=== PATIENT | male | born 1950 | race Caucasian/White ===

== ENCOUNTER 2020-05-25 09:50 | Inpatient (IN) | payer MEDICARE ==
[2020-05-25] MEDS ORDERED: Fentanyl 100 MCG/2 ML VIAL ONE ×2 (10:30→12:34)
[2020-05-25 10:58] LABS: ALT (SGPT) 161 U/L (8-55); AST (SGOT) 161 U/L (5-34); Albumin 3.6 g/dL (3.4-4.8); Alkaline Phosphatase 89 U/L (40-110); Anion Gap 18 mmol/L (10-20); BUN (Urea Nitrogen) 24 mg/dL (8.4-25.7); Bilirubin, Total 0.3 mg/dL (0.2-1.2); CK (CPK) 354 U/L (30-200); Calc. Creatinine Clearance 0 mL/min (70-130); Calcium 8.9 mg/dL (7.8-10.44); Carbon Dioxide 24 mmol/L (23-31); Chloride 99 mmol/L (98-107); Globulin 2.8 g/dL (2.4-3.5); Glucose 155 mg/dL (80-115); Potassium 3.5 mmol/L (3.5-5.1); Protein, Total 6.4 g/dL (5.8-8.1); Sodium 137 mmol/L (136-145)
[2020-05-25 10:59] LABS: Hemoglobin 9.4 g/dL (14.0-18.0); Mean Corpuscular HGB CONC 31.5 g/dL (32.0-36.0); Mean Corpuscular Hemoglobin 23.2 pg (27.0-31.0); Mean Corpuscular Volume 73.8 fL (78.0-98.0); Mean Platelet Volume 9.3 fL (7.4-10.4); Platelet Count 215 thou/uL (130-400); RBC Distribution Width 17.8 % (11.5-14.5); Red Blood Cell (RBC) Count 4.06 mill/uL (4.70-6.10); White Blood Cell (WBC) Count 10.7 thou/uL (4.8-10.8)
[2020-05-25 11:00] LABS: #Eosinphils 0.1 thou/uL (0.0-0.7); #Lymphocytes 1.1 thou/uL (1.20-3.40); #Monocytes 0.6 thou/uL (0.11-0.59); #Neutrophils 8.8 thou/uL (1.40-6.50); %Basophils 0.3 % (0.0-1.0); %Eosinophils 1.2 % (0.0-10.0); %Lymphocytes 10.5 % (21.0-51.0); %Monocytes 5.8 % (0.0-10.0); %Neutrophils 82.1 % (42.0-75.0)
[2020-05-25 11:19] LABS: Hypochromia SLIGHT = 6-15 cells (100X) (0-5/hpf); MDiff Complete? YES; Microcytosis SLIGHT = 6-15 cells (100X) (0-5/hpf); Platelet Morphology Comment Appears Adequate; Polychromasia SLIGHT = 2-3 cells (100X) (0-2/hpf)
[2020-05-25] MEDS ORDERED: Morphine 4 MG/ML VIAL ONE (13:52)
[2020-05-25] MEDS ORDERED: Aspirin Chewable 81 MG TAB ONE (14:00)
[2020-05-25] MEDS ORDERED: Insulin Regular 300 UNITS/3 ML VIAL SC PRN (14:42)
[2020-05-25] MEDS ORDERED: Morphine 2 MG/ML VIAL SLOW IVP PRN (14:42)
[2020-05-25] MEDS ORDERED: Ondansetron ODT 4 MG TAB PO PRN (14:42)
[2020-05-25] MEDS ORDERED: hydrALAZINE 20 MG/ML VIAL SLOW IVP PRN ×2 (14:42→22:05)
[2020-05-25] MEDS ORDERED: Dextrose 5% in Water 1,000 ML IV PRN (14:42)
[2020-05-25] MEDS ORDERED: Dextrose 50% Abboject 50 ML SYRINGE SLOW IVP PRN (14:42)
[2020-05-25] MEDS ORDERED: traMADol HCl 50 MG TAB PO PRN (14:49)
[2020-05-25 15:21] LABS: Magnesium 1.7 mg/dL (1.6-2.6); Phosphorus 4.2 mg/dL (2.3-4.7)
[2020-05-25] MEDS ORDERED: Acetaminophen 325 MG TAB PO PRN (17:32)
[2020-05-25 17:44] LABS: Glucose 136 mg/dL (80-115)
[2020-05-25] MEDS ORDERED: Gabapentin 300 MG CAP PO SCH (17:45)
[2020-05-25 17:55] LABS: Troponin I 0.107 ng/mL (< 0.028)
[2020-05-25] MEDS ORDERED: traMADol HCl 50 MG TAB PO SCH (18:00)
[2020-05-25 18:46] VITALS: BMI 31.6
[2020-05-25] MEDS ORDERED: Potassium Phosphate 30 MMOL in Sodium Chloride 0.9% 500 ML IVPB SCH (19:00)
[2020-05-25] MEDS: Gabapentin 300 MG CAP PO SCH (20:38)
[2020-05-25] MEDS: Rosuvastatin 10 MG TAB PO SCH (20:38)
[2020-05-25] MEDS: Cyclobenzaprine 10 MG TAB PO SCH (20:40)
[2020-05-25] MEDS: Famotidine 20 MG TAB PO SCH (20:41)
[2020-05-25] MEDS ORDERED: Lisinopril 20 MG TAB PO SCH ×2 (21:00)
[2020-05-25 21:07] LABS: Glucose 158 mg/dL (80-115)
[2020-05-25] MEDS: Ibuprofen 200 MG TAB PO SCH (21:50)
[2020-05-25] MEDS: Senokot S 8.6-50 MG TAB PO SCH (21:52)
[2020-05-26 01:27] LABS: Glucose 160 mg/dL (80-115)
[2020-05-26] MEDS: traMADol HCl 50 MG TAB PO SCH ×4 (01:50→17:21)
[2020-05-26] MEDS: Ibuprofen 200 MG TAB PO SCH ×2 (03:59→09:49)
[2020-05-26] MEDS: Docusate 100 MG CAP PO SCH ×3 (03:59→20:47)
[2020-05-26 05:11] LABS: #Eosinphils 0.2 thou/uL (0.0-0.7); #Lymphocytes 1.8 thou/uL (1.20-3.40); #Monocytes 1.2 thou/uL (0.11-0.59); #Neutrophils 7.8 thou/uL (1.40-6.50); %Basophils 0.4 % (0.0-1.0); %Eosinophils 1.8 % (0.0-10.0); %Monocytes 10.7 % (0.0-10.0); %Neutrophils 71.1 % (42.0-75.0); Hemoglobin 9.1 g/dL (14.0-18.0); Mean Corpuscular HGB CONC 31.8 g/dL (32.0-36.0); Mean Corpuscular Hemoglobin 23.2 pg (27.0-31.0); Mean Corpuscular Volume 73.1 fL (78.0-98.0); Mean Platelet Volume 9.5 fL (7.4-10.4); Platelet Count 203 thou/uL (130-400); RBC Distribution Width 17.9 % (11.5-14.5); White Blood Cell (WBC) Count 10.9 thou/uL (4.8-10.8)
[2020-05-26 05:14] LABS: Prothrombin Time 13.4 sec (12.0-14.7)
[2020-05-26 05:16] LABS: Hemoglobin A1c 6.1 % (4.0-6.0)
[2020-05-26 05:24] LABS: Glucose 165 mg/dL (80-115)
[2020-05-26 05:31] LABS: ALT (SGPT) 146 U/L (8-55); AST (SGOT) 139 U/L (5-34); Albumin 3.4 g/dL (3.4-4.8); Alkaline Phosphatase 84 U/L (40-110); Bilirubin, Direct 0.2 mg/dL (0.1-0.3); Bilirubin, Total 0.4 mg/dL (0.2-1.2); Protein, Total 6.1 g/dL (5.8-8.1)
[2020-05-26 05:33] LABS: Acetaminophen Less than 6.0 mcg/mL (10.0-30.0); Alcohol Less than 10 mg/dL (Less than 10); Salicylate Less than 8.0 mg/dL (15.0-30.0)
[2020-05-26 05:34] LABS: Anion Gap 15 mmol/L (10-20); BUN (Urea Nitrogen) 26 mg/dL (8.4-25.7); Calc. Creatinine Clearance 53 mL/min (70-130); Calcium 8.4 mg/dL (7.8-10.44); Carbon Dioxide 27 mmol/L (23-31); Cardiac Risk 3.9 (Less than 4.5); Chloride 97 mmol/L (98-107); Cholesterol 129 mg/dl (< 200 Desired); Glucose 164 mg/dL (80-115); HDL Cholesterol 33 mg/dL (>60 Neg Risk); LDL Cholesterol, Calculated 68 mg/dL; Potassium 3.1 mmol/L (3.5-5.1); Sodium 136 mmol/L (136-145); Triglycerides 140 mg/dL (Less than 150)
[2020-05-26] MEDS ORDERED: Potassium Phosphate 30 MMOL in Sodium Chloride 0.9% 250 ML 250 ML IVPB SCH (07:15)
[2020-05-26] MEDS ORDERED: Potassium Chloride 20 MEQ TAB PO SCH ×2 (07:15→14:30)
[2020-05-26] MEDS ORDERED: Potassium Phosphate 30 MMOL, Magnesium Sulfate 2 GM in Sodium Chloride 0.9% 250 ML 250 ML IVPB SCH (07:15)
[2020-05-26] MEDS ORDERED: Magnesium Sulfate 2 GM in Sodium Chloride 0.9% 100 ML IV SCH (07:15)
[2020-05-26] MEDS ORDERED: Bumetanide 1 MG TAB PO SCH (07:30)
[2020-05-26 07:51] LABS: Phosphorus 5.1 mg/dL (2.3-4.7)
[2020-05-26] MEDS ORDERED: Tamsulosin HCl 0.4 MG CAP PO SCH (09:00)
[2020-05-26 09:28] LABS: SARS-CoV-2 PCR by NAA Not Detected (NotDetected)
[2020-05-26 09:47] LABS: Glucose 113 mg/dL (80-115)
[2020-05-26] MEDS: Gabapentin 300 MG CAP PO SCH ×2 (09:48→14:33)
[2020-05-26] MEDS: Famotidine 20 MG TAB PO SCH (09:49)
[2020-05-26] MEDS: Tamsulosin HCl 0.4 MG CAP PO SCH (09:49)
[2020-05-26] MEDS: Aspirin 81 mg Enteric Coated Tablet PO SCH (09:50)
[2020-05-26] MEDS: Dutasteride 0.5 MG CAP PO SCH (09:50)
[2020-05-26] MEDS: Senokot S 8.6-50 MG TAB PO SCH ×2 (09:50→20:45)
[2020-05-26] MEDS: Cyclobenzaprine 10 MG TAB PO SCH ×2 (09:50→14:34)
[2020-05-26] MEDS: traMADol HCl 50 MG TAB PO PRN (11:48)
[2020-05-26] MEDS ORDERED: Acetaminophen 325 MG TAB PO SCH ×2 (12:00→14:00)
[2020-05-26] MEDS: HYDROcodone/Acetaminophen 10/325 mg Tablet PO PRN (12:53)
[2020-05-26] MEDS: GUAIFENESIN SF SOLN 200 MG/10 ML UDCUP PO PRN (17:20)
[2020-05-26] MEDS: Carvedilol 3.125 MG TAB PO SCH (17:21)
[2020-05-26] MEDS: Nicotine 14 MG PATCH TD SCH (17:21)
[2020-05-26] MEDS: Gabapentin 400 MG CAP PO SCH (20:42)
[2020-05-26] MEDS: Acetaminophen 325 MG TAB PO SCH (20:45)
[2020-05-27] MEDS ORDERED: Furosemide 100 MG/10 ML VIAL SLOW IVP SCH
[2020-05-27] MEDS ORDERED: Furosemide 100 MG/10 ML VIAL ONE (00:02)
[2020-05-27 00:10] LABS: #Basophils 0.1 thou/uL (0.0-0.2); #Eosinphils 0.2 thou/uL (0.0-0.7); #Lymphocytes 1.7 thou/uL (1.20-3.40); #Monocytes 1.5 thou/uL (0.11-0.59); #Neutrophils 13.9 thou/uL (1.40-6.50); %Basophils 0.3 % (0.0-1.0); %Eosinophils 1.1 % (0.0-10.0); %Monocytes 8.4 % (0.0-10.0); %Neutrophils 80.2 % (42.0-75.0); Hemoglobin 9.6 g/dL (14.0-18.0); Mean Corpuscular HGB CONC 31.1 g/dL (32.0-36.0); Mean Corpuscular Volume 73.9 fL (78.0-98.0); Mean Platelet Volume 9.6 fL (7.4-10.4); Platelet Count 197 thou/uL (130-400); Red Blood Cell (RBC) Count 4.18 mill/uL (4.70-6.10); White Blood Cell (WBC) Count 17.4 thou/uL (4.8-10.8)
[2020-05-27 00:17] LABS: Actual Bicarbonate (HCO3a) 26.3 mEq/L (22-28); Base Excess (BEa) -1.6 mEq/L (-2.0 to +3.0); Calcium, Ionized (arterial) 1.17 mmol/L (1.12-1.30); Carboxyhemoglobin (COHb) 1.4 gm% (0.0-3.0); Hemoglobin (Hb) 9.9 g/dL (14.0-18.0); O2 Tension (PaO2), arterial 86.3 mmHg (> 70.0); Potassium - ABG Lab 3.97 mmol/L (3.70-5.30)
[2020-05-27 00:19] LABS: INR-International Normal Ratio 0.9; Prothrombin Time 12.7 sec (12.0-14.7)
[2020-05-27 00:31] LABS: Anion Gap 18 mmol/L (10-20); BUN (Urea Nitrogen) 28 mg/dL (8.4-25.7); Calc. Creatinine Clearance 50 mL/min (70-130); Carbon Dioxide 22 mmol/L (23-31); Chloride 98 mmol/L (98-107); Glucose 169 mg/dL (80-115); Magnesium 2.6 mg/dL (1.6-2.6); Potassium 4.5 mmol/L (3.5-5.1); Sodium 133 mmol/L (136-145)
[2020-05-27 00:35] LABS: Troponin I 0.073 ng/mL (< 0.028)
[2020-05-27 02:36] LABS: #Eosinphils 0.1 thou/uL (0.0-0.7); #Lymphocytes 0.9 thou/uL (1.20-3.40); #Neutrophils 12.5 thou/uL (1.40-6.50); %Basophils 0.1 % (0.0-1.0); %Eosinophils 0.6 % (0.0-10.0); %Lymphocytes 6.4 % (21.0-51.0); %Monocytes 6.9 % (0.0-10.0); Hemoglobin 8.7 g/dL (14.0-18.0); Mean Corpuscular HGB CONC 31.1 g/dL (32.0-36.0); Mean Corpuscular Hemoglobin 23.1 pg (27.0-31.0); Mean Corpuscular Volume 74.1 fL (78.0-98.0); Mean Platelet Volume 9.5 fL (7.4-10.4); Platelet Count 182 thou/uL (130-400); RBC Distribution Width 17.6 % (11.5-14.5); Red Blood Cell (RBC) Count 3.78 mill/uL (4.70-6.10); White Blood Cell (WBC) Count 14.6 thou/uL (4.8-10.8)
[2020-05-27 02:54] LABS: Anion Gap 17 mmol/L (10-20); BUN (Urea Nitrogen) 26 mg/dL (8.4-25.7); Calc. Creatinine Clearance 49 mL/min (70-130); Calcium 8.4 mg/dL (7.8-10.44); Carbon Dioxide 24 mmol/L (23-31); Chloride 96 mmol/L (98-107); Glucose 210 mg/dL (80-115); Phosphorus 5.3 mg/dL (2.3-4.7); Potassium 3.8 mmol/L (3.5-5.1); Sodium 133 mmol/L (136-145)
[2020-05-27 04:04] LABS: Actual Bicarbonate (HCO3a) 26.3 mEq/L (22-28); Base Excess (BEa) 1.1 mEq/L (-2.0 to +3.0); CO2 Tension 44.8 mmHg (35.0-45.0); Calcium, Ionized (arterial) 1.15 mmol/L (1.12-1.30); Hemoglobin (Hb) 9.5 g/dL (14.0-18.0); Potassium - ABG Lab 3.48 mmol/L (3.70-5.30); pH, Arterial 7.39 (7.35-7.45)
[2020-05-27 04:07] LABS: CO2 Tension 61.9 mmHg (35.0-45.0); Puncture Site LRA; pH, Arterial 7.25 (7.35-7.45)
[2020-05-27 04:08] LABS: ALV-art Gradient 478.025 mmHg (0-20)
[2020-05-27 04:09] LABS: O2 Tension (PaO2), arterial 56.1 mmHg (> 70.0)
[2020-05-27 04:10] LABS: Puncture Site RRA
[2020-05-27] MEDS: Rosuvastatin 10 MG TAB PO SCH ×2 (05:48→20:32)
[2020-05-27] MEDS: traMADol HCl 50 MG TAB PO SCH ×5 (05:50→23:49)
[2020-05-27] MEDS: Tamsulosin HCl 0.4 MG CAP PO SCH (08:24)
[2020-05-27] MEDS: Gabapentin 400 MG CAP PO SCH (08:24)
[2020-05-27] MEDS: Dutasteride 0.5 MG CAP PO SCH (08:24)
[2020-05-27] MEDS: Acetaminophen 325 MG TAB PO SCH ×2 (08:24→20:31)
[2020-05-27] MEDS: Senokot S 8.6-50 MG TAB PO SCH ×2 (08:24→20:32)
[2020-05-27] MEDS: Aspirin 81 mg Enteric Coated Tablet PO SCH (08:25)
[2020-05-27] MEDS: Carvedilol 3.125 MG TAB PO SCH ×2 (08:25→18:08)
[2020-05-27] MEDS: Bumetanide 1 MG TAB PO SCH (08:25)
[2020-05-27] MEDS: Docusate 100 MG CAP PO SCH ×2 (10:20→20:32)
[2020-05-27] MEDS ORDERED: Non-Formulary Item 1 EACH (Albuterol Sulfate [Proventil Hfa] 200 PUFF Inh) INH PRN (10:31)
[2020-05-27] MEDS ORDERED: Albuterol Sulfate 2.5 mg/3 ml Neb NEB PRN (10:31)
[2020-05-27] MEDS: HumaLOG 300 UNITS/3 ML VIAL SC PRN ×2 (11:37→20:33)
[2020-05-27] MEDS ORDERED: methylPREDNISolone Sod Succ/PF 125 MG/2 ML VIAL IVP SCH (11:52)
[2020-05-27 17:04] LABS: Bilirubin Negative (Negative); Blood, Urine 1+ (Negative); Clarity Clear (Clear); Glucose, Urine (Dipstick) Normal (Negative); Ketone, Urine Negative (Negative); Leukocyte 250 Leu/uL (Negative); Nitrite Negative (Negative); Protein, Urine (Dipstick) 10 mg/dL (Neg-Trace); Specific Gravity, Urine 1.015 (1.002-1.036); Squamous Epithelial None Seen HPF (0-3); Urobilinogen Normal mg/dL (Less than 2); WBC/HPF 21-50 HPF (0-3); pH, Urine 5.5 (5.0-9.0)
[2020-05-27 17:05] LABS: Bacteria/HPF 3+ HPF (None Seen)
[2020-05-27] MEDS: methylPREDNISolone Sod Succ 40 MG VIAL IVP SCH ×2 (18:07→23:49)
[2020-05-27] MEDS: hydrALAZINE 25 MG TAB PO SCH ×2 (18:08→20:32)
[2020-05-27] MEDS: Nicotine 14 MG PATCH TD SCH (18:08)
[2020-05-27] MEDS: Mometasone 100 MCG/Formoterol 5 MCG 120 PUFF INHALER INH SCH (19:16)
[2020-05-27] MEDS: Gabapentin 100 MG CAP PO SCH (20:32)
[2020-05-27] MEDS ORDERED: Heparin 5,000 UNITS/ML VIAL SC SCH (21:00)
[2020-05-27 22:48] LABS: Bacteria/HPF 2+ HPF (None Seen); Bilirubin Negative (Negative); Blood, Urine Trace (Negative); Clarity Clear (Clear); Glucose, Urine (Dipstick) 300 mg/dL (Negative); Ketone, Urine Negative (Negative); Leukocyte 75 Leu/uL (Negative); Nitrite Negative (Negative); Protein, Urine (Dipstick) 10 mg/dL (Neg-Trace); RBC/HPF 0-3 HPF (0-3); Specific Gravity, Urine 1.012 (1.002-1.036); Squamous Epithelial None Seen HPF (0-3); Urobilinogen Normal mg/dL (Less than 2); pH, Urine 5.5 (5.0-9.0)
[2020-05-27 22:49] LABS: Urine Culture Reflex Yes Yes
[2020-05-28] MEDS: HYDROcodone/Acetaminophen 10/325 mg Tablet PO PRN (01:53)
[2020-05-28 04:08] LABS: ALT (SGPT) 340 U/L (8-55); AST (SGOT) 403 U/L (5-34); Albumin 3.3 g/dL (3.4-4.8); Alkaline Phosphatase 91 U/L (40-110); Bilirubin, Direct 0.2 mg/dL (0.1-0.3); Bilirubin, Total 0.4 mg/dL (0.2-1.2); Protein, Total 6.3 g/dL (5.8-8.1)
[2020-05-28] MEDS: methylPREDNISolone Sod Succ 40 MG VIAL IVP SCH ×4 (05:37→23:24)
[2020-05-28] MEDS: traMADol HCl 50 MG TAB PO PRN (05:38)
[2020-05-28] MEDS: traMADol HCl 50 MG TAB PO SCH ×4 (05:39→23:26)
[2020-05-28] MEDS: HumaLOG 300 UNITS/3 ML VIAL SC PRN ×2 (05:39→20:40)
[2020-05-28] MEDS ORDERED: Ipratropium Bromide 2.5 ml Neb NEB SCH (07:00)
[2020-05-28] MEDS: Morphine 2 MG/ML VIAL SLOW IVP PRN ×2 (07:17→19:51)
[2020-05-28 07:22] LABS: #Basophils 0.3 thou/uL (0.0-0.2); #Lymphocytes 0.6 thou/uL (1.20-3.40); #Monocytes 0.3 thou/uL (0.11-0.59); #Neutrophils 11.7 thou/uL (1.40-6.50); %Eosinophils 0.1 % (0.0-10.0); %Lymphocytes 4.4 % (21.0-51.0); %Monocytes 2.6 % (0.0-10.0); %Neutrophils 90.8 % (42.0-75.0); Hemoglobin 9.2 g/dL (14.0-18.0); Mean Corpuscular HGB CONC 31.4 g/dL (32.0-36.0); Mean Corpuscular Hemoglobin 23.2 pg (27.0-31.0); Mean Corpuscular Volume 73.8 fL (78.0-98.0); Mean Platelet Volume 10.5 fL (7.4-10.4); Platelet Count 180 thou/uL (130-400); RBC Distribution Width 17.8 % (11.5-14.5); Red Blood Cell (RBC) Count 3.95 mill/uL (4.70-6.10); White Blood Cell (WBC) Count 12.9 thou/uL (4.8-10.8)
[2020-05-28 07:31] LABS: Anion Gap 12 mmol/L (10-20); BUN (Urea Nitrogen) 17 mg/dL (8.4-25.7); Calc. Creatinine Clearance 56 mL/min (70-130); Calcium 9.1 mg/dL (7.8-10.44); Carbon Dioxide 30 mmol/L (23-31); Chloride 94 mmol/L (98-107); Glucose 195 mg/dL (80-115); Magnesium 1.9 mg/dL (1.6-2.6); Sodium 132 mmol/L (136-145)
[2020-05-28 07:36] LABS: Phosphorus 3.6 mg/dL (2.3-4.7)
[2020-05-28] MEDS: Mometasone 100 MCG/Formoterol 5 MCG 120 PUFF INHALER INH SCH ×2 (08:00→18:31)
[2020-05-28] MEDS: Carvedilol 3.125 MG TAB PO SCH (08:02)
[2020-05-28] MEDS: Acetaminophen 325 MG TAB PO SCH ×2 (08:02→20:41)
[2020-05-28] MEDS: Dutasteride 0.5 MG CAP PO SCH (08:02)
[2020-05-28] MEDS: Gabapentin 100 MG CAP PO SCH ×2 (08:03→20:40)
[2020-05-28] MEDS: Aspirin 81 mg Enteric Coated Tablet PO SCH (08:03)
[2020-05-28] MEDS: Docusate 100 MG CAP PO SCH ×2 (08:04→20:41)
[2020-05-28] MEDS: Bumetanide 1 MG TAB PO SCH (08:04)
[2020-05-28] MEDS: Senokot S 8.6-50 MG TAB PO SCH ×2 (08:04→20:40)
[2020-05-28] MEDS: hydrALAZINE 25 MG TAB PO SCH ×3 (08:04→20:41)
[2020-05-28] MEDS: Tamsulosin HCl 0.4 MG CAP PO SCH (08:04)
[2020-05-28] MEDS ORDERED: Carvedilol 3.125 MG TAB PO SCH (13:09)
[2020-05-28] MEDS ORDERED: Carvedilol 6.25 MG TAB PO SCH (13:15)
[2020-05-28] MEDS: Carvedilol 6.25 MG TAB PO SCH (17:45)
[2020-05-28] MEDS: Nicotine 14 MG PATCH TD SCH (17:48)
[2020-05-28] MEDS: Heparin 5,000 UNITS/ML VIAL SC SCH (20:40)
[2020-05-29] MEDS: Morphine 2 MG/ML VIAL SLOW IVP PRN (03:52)
[2020-05-29 04:25] LABS: Phosphorus 3.7 mg/dL (2.3-4.7)
[2020-05-29 04:26] LABS: ALT (SGPT) 407 U/L (8-55); AST (SGOT) 363 U/L (5-34); Albumin 3.5 g/dL (3.4-4.8); Alkaline Phosphatase 92 U/L (40-110); Anion Gap 15 mmol/L (10-20); BUN (Urea Nitrogen) 30 mg/dL (8.4-25.7); Bilirubin, Direct 0.2 mg/dL (0.1-0.3); Bilirubin, Total 0.4 mg/dL (0.2-1.2); Calc. Creatinine Clearance 65 mL/min (70-130); Calcium 9.2 mg/dL (7.8-10.44); Carbon Dioxide 29 mmol/L (23-31); Chloride 93 mmol/L (98-107); Glucose 168 mg/dL (80-115); Magnesium 1.8 mg/dL (1.6-2.6); Potassium 4.2 mmol/L (3.5-5.1); Protein, Total 6.8 g/dL (5.8-8.1); Sodium 133 mmol/L (136-145)
[2020-05-29] MEDS: HumaLOG 300 UNITS/3 ML VIAL SC PRN ×2 (05:41→12:34)
[2020-05-29] MEDS: methylPREDNISolone Sod Succ 40 MG VIAL IVP SCH ×4 (05:42→23:34)
[2020-05-29] MEDS: traMADol HCl 50 MG TAB PO SCH ×4 (05:42→23:34)
[2020-05-29] MEDS: Mometasone 100 MCG/Formoterol 5 MCG 120 PUFF INHALER INH SCH ×2 (08:03→18:34)
[2020-05-29] MEDS: Aspirin 81 mg Enteric Coated Tablet PO SCH (08:25)
[2020-05-29] MEDS: Acetaminophen 325 MG TAB PO SCH ×2 (08:25→20:25)
[2020-05-29] MEDS: Carvedilol 6.25 MG TAB PO SCH ×2 (08:25→18:21)
[2020-05-29] MEDS: Bumetanide 1 MG TAB PO SCH (08:26)
[2020-05-29] MEDS: Docusate 100 MG CAP PO SCH ×2 (08:26→20:24)
[2020-05-29] MEDS: Dutasteride 0.5 MG CAP PO SCH (08:26)
[2020-05-29] MEDS: Gabapentin 100 MG CAP PO SCH ×2 (08:26→20:25)
[2020-05-29] MEDS: Heparin 5,000 UNITS/ML VIAL SC SCH ×2 (08:26→20:25)
[2020-05-29] MEDS: hydrALAZINE 25 MG TAB PO SCH ×3 (08:27→20:24)
[2020-05-29] MEDS: Tamsulosin HCl 0.4 MG CAP PO SCH (08:27)
[2020-05-29] MEDS: Senokot S 8.6-50 MG TAB PO SCH ×2 (08:27→20:24)
[2020-05-29] MEDS ORDERED: Acetaminophen 325 MG TAB PO SCH (12:30)
[2020-05-29] MEDS: Acetaminophen/Codeine 30-300mg Tablet PO PRN (13:18)
[2020-05-29] MEDS ORDERED: guaiFENesin ER 600 MG TAB PO SCH (15:00)
[2020-05-29] MEDS: Nicotine 14 MG PATCH TD SCH (18:23)
[2020-05-29] MEDS: guaiFENesin ER 600 MG TAB PO SCH (20:24)
[2020-05-29] MEDS: GUAIFENESIN SF SOLN 200 MG/10 ML UDCUP PO PRN (20:24)
[2020-05-29] MEDS: diphenhydrAMINE 25 MG CAP PO PRN (20:37)
[2020-05-30 04:09] LABS: Iron Binding Capacity, Total 404 mcg/dL (261-462)
[2020-05-30 04:10] LABS: Iron 18 ug/dL (65-175)
[2020-05-30 04:25] LABS: HBSAg Index 0.21 S/CO (0-0.99); Hep B Surf Ag Non-Reactive S/CO (NonReactive)
[2020-05-30 04:26] LABS: Hep A IgM AB Non-Reactive (NonReactive); Hep A IgM S/CO 0.61 S/CO (0-0.79); Hep C IgG Ab Non-Reactive (NonReactive); Hep C Index 0.09 S/CO (0-0.79)
[2020-05-30 04:27] LABS: HBCM Index 0.08 S/CO (0-0.79); Hepatitis B Core IgM Abs Non-Reactive (NonReactive)
[2020-05-30 04:58] LABS: Ferritin 201.76 ng/mL (22-322); Vitamin B12 435 pg/mL (211-911)
[2020-05-30] MEDS: traMADol HCl 50 MG TAB PO SCH ×3 (06:14→18:20)
[2020-05-30] MEDS: methylPREDNISolone Sod Succ 40 MG VIAL IVP SCH ×3 (06:15→18:20)
[2020-05-30] MEDS: HumaLOG 300 UNITS/3 ML VIAL SC PRN ×3 (06:15→16:55)
[2020-05-30] MEDS: Mometasone 100 MCG/Formoterol 5 MCG 120 PUFF INHALER INH SCH ×2 (07:30→18:38)
[2020-05-30 08:40] LABS: ALT (SGPT) 361 U/L (8-55); AST (SGOT) 226 U/L (5-34); Albumin 3.5 g/dL (3.4-4.8); Alkaline Phosphatase 93 U/L (40-110); Bilirubin, Direct 0.2 mg/dL (0.1-0.3); Bilirubin, Total 0.4 mg/dL (0.2-1.2); Protein, Total 6.6 g/dL (5.8-8.1)
[2020-05-30] MEDS: Gabapentin 100 MG CAP PO SCH ×2 (08:59→21:31)
[2020-05-30] MEDS: Senokot S 8.6-50 MG TAB PO SCH ×2 (09:00→21:31)
[2020-05-30] MEDS: Bumetanide 1 MG TAB PO SCH (09:00)
[2020-05-30] MEDS: Aspirin 81 mg Enteric Coated Tablet PO SCH (09:00)
[2020-05-30] MEDS: Heparin 5,000 UNITS/ML VIAL SC SCH ×2 (09:00→21:32)
[2020-05-30] MEDS: guaiFENesin ER 600 MG TAB PO SCH ×2 (09:00→21:32)
[2020-05-30] MEDS: hydrALAZINE 25 MG TAB PO SCH ×3 (09:01→21:32)
[2020-05-30] MEDS: Acetaminophen 325 MG TAB PO SCH ×2 (09:01→21:30)
[2020-05-30] MEDS: Carvedilol 6.25 MG TAB PO SCH ×2 (09:01→16:01)
[2020-05-30] MEDS: Tamsulosin HCl 0.4 MG CAP PO SCH (09:01)
[2020-05-30] MEDS: Docusate 100 MG CAP PO SCH ×2 (09:01→21:31)
[2020-05-30] MEDS: Dutasteride 0.5 MG CAP PO SCH (09:02)
[2020-05-30] MEDS: Nicotine 14 MG PATCH TD SCH (18:20)
[2020-05-30] MEDS ORDERED: Sacubitril 49 MG/Valsartan 51 MG TABLET PO SCH (21:00)
[2020-05-31] MEDS: traMADol HCl 50 MG TAB PO SCH ×4 (00:36→18:18)
[2020-05-31] MEDS: methylPREDNISolone Sod Succ 40 MG VIAL IVP SCH ×2 (00:36→06:33)
[2020-05-31 05:04] LABS: Anion Gap 12 mmol/L (10-20); BUN (Urea Nitrogen) 44 mg/dL (8.4-25.7); Calc. Creatinine Clearance 68 mL/min (70-130); Calcium 8.5 mg/dL (7.8-10.44); Carbon Dioxide 32 mmol/L (23-31); Chloride 94 mmol/L (98-107); Glucose 205 mg/dL (80-115); Potassium 3.7 mmol/L (3.5-5.1); Sodium 134 mmol/L (136-145)
[2020-05-31] MEDS: Mometasone 100 MCG/Formoterol 5 MCG 120 PUFF INHALER INH SCH ×2 (06:55→18:40)
[2020-05-31] MEDS: HumaLOG 300 UNITS/3 ML VIAL SC PRN ×4 (07:02→21:49)
[2020-05-31] MEDS ORDERED: Spironolactone 25 MG TAB PO SCH (09:00)
[2020-05-31] MEDS: Aspirin 81 mg Enteric Coated Tablet PO SCH (10:01)
[2020-05-31] MEDS: Senokot S 8.6-50 MG TAB PO SCH ×2 (10:02→20:26)
[2020-05-31] MEDS: Gabapentin 100 MG CAP PO SCH ×2 (10:02→20:25)
[2020-05-31] MEDS: hydrALAZINE 25 MG TAB PO SCH ×3 (10:02→20:26)
[2020-05-31] MEDS: Tamsulosin HCl 0.4 MG CAP PO SCH (10:02)
[2020-05-31] MEDS: Bumetanide 1 MG TAB PO SCH (10:04)
[2020-05-31] MEDS: Docusate 100 MG CAP PO SCH ×2 (10:04→20:27)
[2020-05-31] MEDS: Acetaminophen 325 MG TAB PO SCH ×2 (10:04→20:27)
[2020-05-31] MEDS: guaiFENesin ER 600 MG TAB PO SCH ×2 (10:04→20:26)
[2020-05-31] MEDS: Carvedilol 6.25 MG TAB PO SCH ×2 (10:05→18:17)
[2020-05-31] MEDS: Dutasteride 0.5 MG CAP PO SCH (10:05)
[2020-05-31] MEDS: Heparin 5,000 UNITS/ML VIAL SC SCH ×2 (10:05→20:27)
[2020-05-31] MEDS: Sacubitril 49 MG/Valsartan 51 MG TABLET PO SCH ×2 (10:13→20:26)
[2020-05-31] MEDS: predniSONE 20 MG TAB PO SCH (10:15)
[2020-05-31] MEDS: Acetaminophen/Codeine 30-300mg Tablet PO PRN (14:14)
[2020-05-31] MEDS: Nicotine 14 MG PATCH TD SCH (18:18)
[2020-05-31] MEDS: HYDROcodone/Acetaminophen 10/325 mg Tablet PO PRN (21:22)
[2020-06-01] MEDS: traMADol HCl 50 MG TAB PO SCH ×5 (01:14→23:36)
[2020-06-01 04:54] LABS: Hemoglobin 10.5 g/dL (14.0-18.0); Mean Corpuscular HGB CONC 31.1 g/dL (32.0-36.0); Mean Corpuscular Hemoglobin 22.8 pg (27.0-31.0); Mean Corpuscular Volume 73.4 fL (78.0-98.0); Mean Platelet Volume 10.1 fL (7.4-10.4); Platelet Count 268 thou/uL (130-400); RBC Distribution Width 18.4 % (11.5-14.5); Red Blood Cell (RBC) Count 4.62 mill/uL (4.70-6.10); White Blood Cell (WBC) Count 16.9 thou/uL (4.8-10.8)
[2020-06-01 05:15] LABS: ALT (SGPT) 325 U/L (8-55); AST (SGOT) 190 U/L (5-34); Alkaline Phosphatase 80 U/L (40-110); Anion Gap 16 mmol/L (10-20); BUN (Urea Nitrogen) 37 mg/dL (8.4-25.7); Bilirubin, Direct 0.2 mg/dL (0.1-0.3); Bilirubin, Total 0.4 mg/dL (0.2-1.2); Calc. Creatinine Clearance 75 mL/min (70-130); Calcium 8.3 mg/dL (7.8-10.44); Carbon Dioxide 27 mmol/L (23-31); Chloride 96 mmol/L (98-107); Glucose 66 mg/dL (80-115); Magnesium 1.9 mg/dL (1.6-2.6); Phosphorus 2.3 mg/dL (2.3-4.7); Potassium 3.5 mmol/L (3.5-5.1); Protein, Total 5.7 g/dL (5.8-8.1); Sodium 135 mmol/L (136-145)
[2020-06-01 05:26] LABS: Band 7 % (5-11); Lymphocytes 10 % (21-51); MDiff Complete? YES; Monocytes 6 % (0-10); Myelocyte 1 % (0-0); Neutrophil 76 % (42-75)
[2020-06-01] MEDS: Mometasone 100 MCG/Formoterol 5 MCG 120 PUFF INHALER INH SCH ×2 (07:16→19:17)
[2020-06-01] MEDS: Bumetanide 1 MG TAB PO SCH (09:17)
[2020-06-01] MEDS: predniSONE 20 MG TAB PO SCH (09:17)
[2020-06-01] MEDS: Docusate 100 MG CAP PO SCH (09:18)
[2020-06-01] MEDS: Gabapentin 100 MG CAP PO SCH ×2 (09:20→21:03)
[2020-06-01] MEDS: Sacubitril 49 MG/Valsartan 51 MG TABLET PO SCH ×2 (09:20→21:04)
[2020-06-01] MEDS: Aspirin 81 mg Enteric Coated Tablet PO SCH (09:20)
[2020-06-01] MEDS: Acetaminophen 325 MG TAB PO SCH ×2 (09:23→21:04)
[2020-06-01] MEDS: hydrALAZINE 25 MG TAB PO SCH ×3 (09:24→21:06)
[2020-06-01] MEDS: guaiFENesin ER 600 MG TAB PO SCH ×2 (09:24→21:03)
[2020-06-01] MEDS: Tamsulosin HCl 0.4 MG CAP PO SCH (09:24)
[2020-06-01] MEDS: Senokot S 8.6-50 MG TAB PO SCH ×2 (09:25→21:04)
[2020-06-01] MEDS: Dutasteride 0.5 MG CAP PO SCH (09:26)
[2020-06-01] MEDS: Heparin 5,000 UNITS/ML VIAL SC SCH ×2 (09:28→21:06)
[2020-06-01] MEDS ORDERED: Potassium Phosphate 30 MMOL, Magnesium Sulfate 2 GM in Sodium Chloride 0.9% 250 ML 250 ML IVPB SCH (09:30)
[2020-06-01] MEDS: Carvedilol 6.25 MG TAB PO SCH (09:37)
[2020-06-01] MEDS: HYDROcodone/Acetaminophen 10/325 mg Tablet PO PRN ×2 (11:19→17:49)
[2020-06-01] MEDS ORDERED: Bisacodyl 10 MG SUPP PR SCH (11:45)
[2020-06-01 16:39] LABS: ANA Symphony (Qualitative) Negative (Negative); ANA Symphony (Quantitative) 0.2 Ratio (< 0.7 Negative); EliA Vaculitis New Method **** NEW METHOD ****; Mitochondrial Ab 1.2 U/mL (<4 Negative); dsDNA IgG Antibody Less than 0.5 IU/mL (<10 Negative)
[2020-06-01] MEDS: Nicotine 14 MG PATCH TD SCH (17:41)
[2020-06-01] MEDS: HumaLOG 300 UNITS/3 ML VIAL SC PRN ×2 (17:41→21:08)
[2020-06-01] MEDS: diphenhydrAMINE 25 MG CAP PO PRN (17:49)
[2020-06-01] MEDS: Rosuvastatin 10 MG TAB PO SCH (21:06)
[2020-06-02] MEDS: HYDROcodone/Acetaminophen 10/325 mg Tablet PO PRN ×3 (03:32→15:20)
[2020-06-02] MEDS: traMADol HCl 50 MG TAB PO SCH ×4 (05:38→23:27)
[2020-06-02] MEDS: Mometasone 100 MCG/Formoterol 5 MCG 120 PUFF INHALER INH SCH ×2 (08:13→19:33)
[2020-06-02] MEDS ORDERED: Lisinopril/Hydrochlorothiazide 20/25 mg Tablet PO SCH (09:00)
[2020-06-02] MEDS: Senokot S 8.6-50 MG TAB PO SCH ×2 (09:05→20:32)
[2020-06-02] MEDS: Dutasteride 0.5 MG CAP PO SCH (09:05)
[2020-06-02] MEDS: hydrALAZINE 25 MG TAB PO SCH ×3 (09:05→20:30)
[2020-06-02] MEDS: Tamsulosin HCl 0.4 MG CAP PO SCH (09:05)
[2020-06-02] MEDS: guaiFENesin ER 600 MG TAB PO SCH ×2 (09:06→20:33)
[2020-06-02] MEDS: Acetaminophen 325 MG TAB PO SCH ×2 (09:06→20:28)
[2020-06-02] MEDS: Gabapentin 100 MG CAP PO SCH (09:06)
[2020-06-02] MEDS: Aspirin 81 mg Enteric Coated Tablet PO SCH (09:06)
[2020-06-02] MEDS: predniSONE 20 MG TAB PO SCH (09:06)
[2020-06-02] MEDS: Polyethylene Glycol 3350 17 GM Packet PO SCH (09:09)
[2020-06-02] MEDS: Heparin 5,000 UNITS/ML VIAL SC SCH ×2 (09:10→20:33)
[2020-06-02] MEDS: Carvedilol 6.25 MG TAB PO SCH ×2 (11:16→17:45)
[2020-06-02] MEDS: Bumetanide 1 MG TAB PO SCH (11:16)
[2020-06-02] MEDS: Sacubitril 49 MG/Valsartan 51 MG TABLET PO SCH ×2 (11:16→20:50)
[2020-06-02] MEDS: HumaLOG 300 UNITS/3 ML VIAL SC PRN ×3 (12:09→21:07)
[2020-06-02] MEDS ORDERED: Gabapentin 100 MG CAP PO SCH (15:00)
[2020-06-02] MEDS: Gabapentin 300 MG CAP PO SCH ×2 (15:19→20:29)
[2020-06-02] MEDS: Nicotine 14 MG PATCH TD SCH (17:44)
[2020-06-02 18:08] LABS: Smooth Muscle Total ABS 4 Units (0-19)
[2020-06-02] MEDS: Rosuvastatin 10 MG TAB PO SCH (20:32)
[2020-06-03] MEDS: HYDROcodone/Acetaminophen 10/325 mg Tablet PO PRN ×3 (01:44→17:26)
[2020-06-03] MEDS: traMADol HCl 50 MG TAB PO SCH ×4 (05:30→23:32)
[2020-06-03] MEDS: Mometasone 100 MCG/Formoterol 5 MCG 120 PUFF INHALER INH SCH ×2 (07:38→19:58)
[2020-06-03] MEDS: predniSONE 20 MG TAB PO SCH (07:52)
[2020-06-03] MEDS: Dutasteride 0.5 MG CAP PO SCH (07:52)
[2020-06-03] MEDS: Aspirin 81 mg Enteric Coated Tablet PO SCH (07:52)
[2020-06-03] MEDS: Senokot S 8.6-50 MG TAB PO SCH ×2 (07:52→20:18)
[2020-06-03] MEDS: Acetaminophen 325 MG TAB PO SCH ×2 (07:53→20:18)
[2020-06-03] MEDS: Gabapentin 300 MG CAP PO SCH ×3 (07:54→20:18)
[2020-06-03] MEDS: guaiFENesin ER 600 MG TAB PO SCH ×2 (07:54→20:18)
[2020-06-03] MEDS: Carvedilol 6.25 MG TAB PO SCH ×2 (07:54→17:25)
[2020-06-03] MEDS: Tamsulosin HCl 0.4 MG CAP PO SCH (07:54)
[2020-06-03] MEDS: hydrALAZINE 25 MG TAB PO SCH ×3 (07:55→20:18)
[2020-06-03] MEDS: Heparin 5,000 UNITS/ML VIAL SC SCH ×2 (07:56→20:18)
[2020-06-03] MEDS: Bumetanide 1 MG TAB PO SCH (07:56)
[2020-06-03] MEDS: Sacubitril 49 MG/Valsartan 51 MG TABLET PO SCH ×2 (07:56→20:18)
[2020-06-03] MEDS: traMADol HCl 50 MG TAB PO PRN (08:01)
[2020-06-03] MEDS: Polyethylene Glycol 3350 17 GM Packet PO SCH (08:09)
[2020-06-03] MEDS: Bisacodyl 10 MG SUPP PR SCH (08:09)
[2020-06-03 10:21] LABS: #Eosinphils 0.2 thou/uL (0.0-0.7); #Lymphocytes 1.1 thou/uL (1.20-3.40); #Neutrophils 10.5 thou/uL (1.40-6.50); %Eosinophils 1.2 % (0.0-10.0); %Lymphocytes 8.7 % (21.0-51.0); %Monocytes 7.5 % (0.0-10.0); %Neutrophils 82.6 % (42.0-75.0); Hemoglobin 9.8 g/dL (14.0-18.0); Mean Corpuscular HGB CONC 30.9 g/dL (32.0-36.0); Mean Corpuscular Volume 74.4 fL (78.0-98.0); Mean Platelet Volume 10.1 fL (7.4-10.4); Platelet Count 221 thou/uL (130-400); RBC Distribution Width 18.2 % (11.5-14.5); Red Blood Cell (RBC) Count 4.26 mill/uL (4.70-6.10); White Blood Cell (WBC) Count 12.7 thou/uL (4.8-10.8)
[2020-06-03 10:40] LABS: Anion Gap 15 mmol/L (10-20); BUN (Urea Nitrogen) 28 mg/dL (8.4-25.7); Calc. Creatinine Clearance 69 mL/min (70-130); Calcium 7.9 mg/dL (7.8-10.44); Carbon Dioxide 28 mmol/L (23-31); Chloride 93 mmol/L (98-107); Glucose 246 mg/dL (80-115); Potassium 3.7 mmol/L (3.5-5.1); Sodium 132 mmol/L (136-145)
[2020-06-03 11:56] LABS: Magnesium 1.7 mg/dL (1.6-2.6); Phosphorus 2.6 mg/dL (2.3-4.7)
[2020-06-03] MEDS: HumaLOG 300 UNITS/3 ML VIAL SC PRN ×2 (13:02→16:35)
[2020-06-03] MEDS ORDERED: Magnesium Sulfate 2 GM in Sodium Chloride 0.9% 100 ML IVPB SCH (14:12)
[2020-06-03] MEDS ORDERED: Potassium Phosphate 15 MMOL, Magnesium Sulfate 2 GM in Sodium Chloride 0.9% 250 ML 250 ML IVPB SCH (15:00)
[2020-06-03] MEDS: Nicotine 14 MG PATCH TD SCH (17:26)
[2020-06-03] MEDS: Rosuvastatin 10 MG TAB PO SCH (20:18)
[2020-06-04] MEDS: HYDROcodone/Acetaminophen 10/325 mg Tablet PO PRN (03:56)
[2020-06-04] MEDS: traMADol HCl 50 MG TAB PO SCH (05:01)
[2020-06-04] MEDS: Mometasone 100 MCG/Formoterol 5 MCG 120 PUFF INHALER INH SCH ×2 (07:05→19:20)
[2020-06-04] MEDS: Senokot S 8.6-50 MG TAB PO SCH ×2 (09:21→19:58)
[2020-06-04] MEDS: Sacubitril 49 MG/Valsartan 51 MG TABLET PO SCH ×2 (09:21→19:58)
[2020-06-04] MEDS: Aspirin 81 mg Enteric Coated Tablet PO SCH (09:22)
[2020-06-04] MEDS: Tamsulosin HCl 0.4 MG CAP PO SCH (09:22)
[2020-06-04] MEDS: Dutasteride 0.5 MG CAP PO SCH (09:22)
[2020-06-04] MEDS: predniSONE 20 MG TAB PO SCH (09:22)
[2020-06-04] MEDS: guaiFENesin ER 600 MG TAB PO SCH ×2 (09:22→20:00)
[2020-06-04] MEDS: hydrALAZINE 25 MG TAB PO SCH ×3 (09:22→19:59)
[2020-06-04] MEDS: Carvedilol 6.25 MG TAB PO SCH ×2 (09:22→16:29)
[2020-06-04] MEDS: Bisacodyl 10 MG SUPP PR SCH (09:23)
[2020-06-04] MEDS: Polyethylene Glycol 3350 17 GM Packet PO SCH ×2 (09:23→12:18)
[2020-06-04] MEDS: Gabapentin 300 MG CAP PO SCH ×3 (09:23→20:00)
[2020-06-04] MEDS: Acetaminophen 325 MG TAB PO SCH ×2 (09:23→20:00)
[2020-06-04] MEDS: Bumetanide 1 MG TAB PO SCH (09:27)
[2020-06-04] MEDS: traMADol HCl 50 MG TAB PO PRN (09:27)
[2020-06-04] MEDS: Heparin 5,000 UNITS/ML VIAL SC SCH ×2 (09:28→19:58)
[2020-06-04] MEDS ORDERED: Furosemide 40 MG/4 ML VIAL SLOW IVP SCH (10:15)
[2020-06-04] MEDS: HumaLOG 300 UNITS/3 ML VIAL SC PRN ×3 (12:07→20:06)
[2020-06-04] MEDS: Acetaminophen/Codeine 30-300mg Tablet PO PRN (12:12)
[2020-06-04] MEDS: Acetaminophen/Codeine 30-300mg Tablet PO SCH ×2 (16:29→20:00)
[2020-06-04] MEDS: Nicotine 14 MG PATCH TD SCH (17:59)
[2020-06-04] MEDS: Rosuvastatin 10 MG TAB PO SCH (20:00)
[2020-06-05] MEDS: Acetaminophen/Codeine 30-300mg Tablet PO SCH ×6 (00:07→21:37)
[2020-06-05 06:08] LABS: ALT (SGPT) 408 U/L (8-55); AST (SGOT) 165 U/L (5-34); Albumin 2.8 g/dL (3.4-4.8); Alkaline Phosphatase 102 U/L (40-110); Anion Gap 10 mmol/L (10-20); BUN (Urea Nitrogen) 23 mg/dL (8.4-25.7); Bilirubin, Direct 0.3 mg/dL (0.1-0.3); Bilirubin, Total 0.4 mg/dL (0.2-1.2); Calc. Creatinine Clearance 79 mL/min (70-130); Calcium 8.3 mg/dL (7.8-10.44); Carbon Dioxide 32 mmol/L (23-31); Chloride 97 mmol/L (98-107); Glucose 84 mg/dL (80-115); Protein, Total 5.4 g/dL (5.8-8.1); Sodium 135 mmol/L (136-145)
[2020-06-05] MEDS: Mometasone 100 MCG/Formoterol 5 MCG 120 PUFF INHALER INH SCH ×2 (06:53→18:27)
[2020-06-05] MEDS: Acetaminophen 325 MG TAB PO SCH ×2 (08:17→21:40)
[2020-06-05] MEDS: Gabapentin 300 MG CAP PO SCH ×3 (08:17→21:38)
[2020-06-05] MEDS: Senokot S 8.6-50 MG TAB PO SCH ×2 (08:18→21:36)
[2020-06-05] MEDS: Polyethylene Glycol 3350 17 GM Packet PO SCH (08:18)
[2020-06-05] MEDS: Carvedilol 6.25 MG TAB PO SCH ×2 (08:18→17:35)
[2020-06-05] MEDS: Dutasteride 0.5 MG CAP PO SCH (08:18)
[2020-06-05] MEDS: Sacubitril 49 MG/Valsartan 51 MG TABLET PO SCH ×2 (08:18→21:40)
[2020-06-05] MEDS: Tamsulosin HCl 0.4 MG CAP PO SCH (08:18)
[2020-06-05] MEDS: hydrALAZINE 25 MG TAB PO SCH ×3 (08:18→21:39)
[2020-06-05] MEDS: Bisacodyl 10 MG SUPP PR SCH ×2 (08:19→17:44)
[2020-06-05] MEDS: guaiFENesin ER 600 MG TAB PO SCH ×2 (08:19→21:40)
[2020-06-05] MEDS: Heparin 5,000 UNITS/ML VIAL SC SCH ×2 (08:19→21:41)
[2020-06-05] MEDS: Bumetanide 1 MG TAB PO SCH (08:19)
[2020-06-05] MEDS: predniSONE 20 MG TAB PO SCH (08:19)
[2020-06-05] MEDS: Aspirin 81 mg Enteric Coated Tablet PO SCH (08:19)
[2020-06-05] MEDS: HumaLOG 300 UNITS/3 ML VIAL SC PRN ×3 (11:38→23:17)
[2020-06-05] MEDS ORDERED: Furosemide 40 MG/4 ML VIAL SLOW IVP SCH (13:30)
[2020-06-05] MEDS ORDERED: Spironolactone 25 MG TAB PO SCH (13:30)
[2020-06-05 16:14] LABS: Alpha-1-Antitrypsin 212 mg/dL (101-187)
[2020-06-05] MEDS: Nicotine 14 MG PATCH TD SCH (17:35)
[2020-06-06] MEDS: Acetaminophen/Codeine 30-300mg Tablet PO SCH ×5 (01:00→17:20)
[2020-06-06] MEDS: Mometasone 100 MCG/Formoterol 5 MCG 120 PUFF INHALER INH SCH (07:24)
[2020-06-06] MEDS: Polyethylene Glycol 3350 17 GM Packet PO SCH (08:20)
[2020-06-06] MEDS: Sacubitril 49 MG/Valsartan 51 MG TABLET PO SCH (08:21)
[2020-06-06] MEDS: Aspirin 81 mg Enteric Coated Tablet PO SCH (08:21)
[2020-06-06] MEDS: Carvedilol 6.25 MG TAB PO SCH ×2 (08:22→17:20)
[2020-06-06] MEDS: Dutasteride 0.5 MG CAP PO SCH (08:22)
[2020-06-06] MEDS: Tamsulosin HCl 0.4 MG CAP PO SCH (08:22)
[2020-06-06] MEDS: hydrALAZINE 25 MG TAB PO SCH ×2 (08:22→15:27)
[2020-06-06] MEDS: Gabapentin 300 MG CAP PO SCH ×2 (08:23→15:27)
[2020-06-06] MEDS: Bumetanide 1 MG TAB PO SCH (08:23)
[2020-06-06] MEDS: Senokot S 8.6-50 MG TAB PO SCH (08:23)
[2020-06-06] MEDS: guaiFENesin ER 600 MG TAB PO SCH (08:23)
[2020-06-06] MEDS: Heparin 5,000 UNITS/ML VIAL SC SCH (08:23)
[2020-06-06] MEDS: Acetaminophen 325 MG TAB PO SCH (08:24)
[2020-06-06] MEDS: Bisacodyl 10 MG SUPP PR SCH (08:24)
[2020-06-06] MEDS ORDERED: Spironolactone 25 MG TAB PO SCH (09:00)
[2020-06-06 15:15] VITALS: TEMP 98.1
[2020-06-06 17:22] VITALS: BP 122/67
[2020-06-07] MEDS ORDERED: Furosemide 40 MG TAB PO SCH (07:30)
== END 2020-06-06 18:05 | DRG 308 ==
LOC: ERS 09:50 → ERHOLD 13:51 → 2SE 16:22 → IMCU/EMU 05-27 00:41 → 2NO 05-30 17:46 → SJJU 06-01 22:51
PROVIDERS: ADMIT Specialist; ATTEND Specialist
PROC: 5A09457 Assistance with Respiratory Ventilation, 24-96 Consecutive Hours, Continuous Positive Airway Pressure (ICD-10-PCS; 2020-05-27)
PROC: 4B02XTZ Measurement of Cardiac Defibrillator, External Approach (ICD-10-PCS; principal; 2020-05-28)
DX: I47.2 Ventricular tachycardia (principal); K72.00 Acute and subacute hepatic failure without coma; I50.23 Acute on chronic systolic (congestive) heart failure; S22.079A Unspecified fracture of T9-T10 vertebra, initial encounter for closed fracture; S32.029A Unspecified fracture of second lumbar vertebra, initial encounter for closed fracture; S32.039A Unspecified fracture of third lumbar vertebra, initial encounter for closed fracture; I13.0 Hypertensive heart and chronic kidney disease with heart failure and stage 1 through stage 4 chronic kidney disease, or unspecified chronic kidney disease; N17.9 Acute kidney failure, unspecified; E87.2 Acidosis; J98.11 Atelectasis; J44.1 Chronic obstructive pulmonary disease with (acute) exacerbation; J96.11 Chronic respiratory failure with hypoxia; Z20.822 Contact with and (suspected) exposure to COVID-19; E78.5 Hyperlipidemia, unspecified; E78.00 Pure hypercholesterolemia, unspecified; F17.210 Nicotine dependence, cigarettes, uncomplicated; I25.10 Atherosclerotic heart disease of native coronary artery without angina pectoris; N18.9 Chronic kidney disease, unspecified; E11.40 Type 2 diabetes mellitus with diabetic neuropathy, unspecified; E11.22 Type 2 diabetes mellitus with diabetic chronic kidney disease; K80.20 Calculus of gallbladder without cholecystitis without obstruction; K76.89 Other specified diseases of liver; I25.5 Ischemic cardiomyopathy; I49.5 Sick sinus syndrome; I44.7 Left bundle-branch block, unspecified; D50.9 Iron deficiency anemia, unspecified; E11.65 Type 2 diabetes mellitus with hyperglycemia; T38.0X5A Adverse effect of glucocorticoids and synthetic analogues, initial encounter; Z96.642 Presence of left artificial hip joint; Z96.652 Presence of left artificial knee joint; Z98.890 Other specified postprocedural states; Z88.5 Allergy status to narcotic agent; Z79.82 Long term (current) use of aspirin; Z79.84 Long term (current) use of oral hypoglycemic drugs; Z79.51 Long term (current) use of inhaled steroids; Z79.899 Other long term (current) drug therapy; Z95.810 Presence of automatic (implantable) cardiac defibrillator; V49.9XXA Car occupant (driver) (passenger) injured in unspecified traffic accident, initial encounter; Z86.73 Personal history of transient ischemic attack (TIA), and cerebral infarction without residual deficits; I25.2 Old myocardial infarction; Z99.89 Dependence on other enabling machines and devices
CPT/HCPCS: 36415; 36416; 36600; 70450; 71045; 71260; 72125; 74177; 76705; 80048; 80053; 80061; 80074; 80076; 80307; 81001; 82103; 82104; 82105; 82550; 82553; 82607; 82728; 82746; 82805; 82947; 83036; 83516; 83540; 83550; 83735; 83880; 84100; 84146; 84484; 85025; 85610; 85730; 86038; 86225; 87086; 87635; 93005; 93010; 93306; 93880; 93970; 94640; 94660; 94664; 94760; 96374; 96375; 96376; J1644; J1815; J1940; J2270; J2920; J2930; J3010; J3475; J3490; J7030; J7050; J7512; J7620; L0639; Q0163; U0003; U0005

== ENCOUNTER 2021-02-09 10:51 | Emergency (ER) | payer MEDICARE ==
[2021-02-09] MEDS ORDERED: Magnesium 2 GM/50 ML BAG (IN WATER) ONE ×2 (11:34→11:35)
[2021-02-09] MEDS ORDERED: methylPREDNISolone Sod Succ/PF 125 MG/2 ML VIAL ONE ×2 (11:34→11:35)
[2021-02-09 11:42] LABS: #Basophils 0.1 thou/uL (0.0-0.2); #Eosinphils 0.1 thou/uL (0.0-0.7); #Lymphocytes 1.9 thou/uL (1.20-3.40); #Monocytes 1.6 thou/uL (0.11-0.59); #Neutrophils 10.6 thou/uL (1.40-6.50); %Basophils 0.4 % (0.0-1.0); %Eosinophils 0.4 % (0.0-10.0); %Lymphocytes 13.2 % (21.0-51.0); %Monocytes 11.3 % (0.0-10.0); %Neutrophils 74.7 % (42.0-75.0); Hemoglobin 10.2 g/dL (14.0-18.0); Mean Corpuscular HGB CONC 31.8 g/dL (32.0-36.0); Mean Corpuscular Hemoglobin 27.2 pg (27.0-31.0); Mean Corpuscular Volume 85.5 fL (78.0-98.0); Mean Platelet Volume 7.8 fL (7.4-10.4); Platelet Count 248 thou/uL (130-400); RBC Distribution Width 16.1 % (11.5-14.5); Red Blood Cell (RBC) Count 3.76 mill/uL (4.70-6.10); White Blood Cell (WBC) Count 14.2 thou/uL (4.8-10.8)
[2021-02-09 12:04] LABS: ALT (SGPT) 50 U/L (8-55); AST (SGOT) 30 U/L (5-34); Albumin 3.6 g/dL (3.4-4.8); Alkaline Phosphatase 62 U/L (40-110); Anion Gap 12 mmol/L (10-20); BUN (Urea Nitrogen) 25 mg/dL (8.4-25.7); Bilirubin, Total 0.3 mg/dL (0.2-1.2); Calc. Creatinine Clearance 0 mL/min (70-130); Calcium 9.5 mg/dL (7.8-10.44); Carbon Dioxide 25 mmol/L (23-31); Chloride 107 mmol/L (98-107); Globulin 2.6 g/dL (2.4-3.5); Glucose 90 mg/dL (83-110); Potassium 4.4 mmol/L (3.5-5.1); Protein, Total 6.2 g/dL (5.8-8.1); Sodium 140 mmol/L (136-145)
[2021-02-09] MEDS ORDERED: Albuterol 200 PUFF (6.7GM INHALER) ONE (12:09)
== END 2021-02-09 13:10 | disposition home or self-care (01) ==
LOC: ERS 10:51
DX: J44.1 Chronic obstructive pulmonary disease with (acute) exacerbation (principal); E78.5 Hyperlipidemia, unspecified; I10 Essential (primary) hypertension; F17.210 Nicotine dependence, cigarettes, uncomplicated; Z79.899 Other long term (current) drug therapy; Z79.84 Long term (current) use of oral hypoglycemic drugs; Z79.82 Long term (current) use of aspirin
CPT/HCPCS: 36415; 71045; 80053; 83605; 83880; 84484; 85025; 87040; 93005; 96374; 96375; J2930; J3475

== ENCOUNTER 2021-08-29 12:58 | Observation (INO) | payer MEDICARE ==
[~2021-08-29 12:58] MED LIST: Iopamidol-370 76% 500 ML 1 ML ONE
[2021-08-29] MEDS ORDERED: methylPREDNISolone Sod Succ/PF 125 MG/2 ML VIAL ONE (13:57)
[2021-08-29] MEDS ORDERED: Ipratropium Bromide 2.5 ml Neb ONE (14:05)
[2021-08-29] MEDS ORDERED: Albuterol Sulfate 2.5 mg/0.5 ml Neb ONE (14:05)
[2021-08-29] MEDS ORDERED: Magnesium 2 GM/50 ML BAG (IN WATER) ONE (14:09)
[2021-08-29 14:18] LABS: #Eosinphils 0.2 thou/uL (0.0-0.7); #Lymphocytes 1.2 thou/uL (1.20-3.40); #Monocytes 0.8 thou/uL (0.11-0.59); %Basophils 0.3 % (0.0-1.0); %Eosinophils 1.9 % (0.0-10.0); %Lymphocytes 14.8 % (21.0-51.0); %Monocytes 9.8 % (0.0-10.0); %Neutrophils 73.3 % (42.0-75.0); Hemoglobin 11.1 g/dL (14.0-18.0); Mean Corpuscular HGB CONC 32.1 g/dL (32.0-36.0); Mean Corpuscular Hemoglobin 30.5 pg (27.0-31.0); Mean Platelet Volume 8.5 fL (7.4-10.4); Platelet Count 163 thou/uL (130-400); RBC Distribution Width 16.5 % (11.5-14.5); Red Blood Cell (RBC) Count 3.62 mill/uL (4.70-6.10); White Blood Cell (WBC) Count 8.2 thou/uL (4.8-10.8)
[2021-08-29 14:43] LABS: ALT (SGPT) 11 U/L (8-55); AST (SGOT) 15 U/L (5-34); Albumin 3.9 g/dL (3.4-4.8); Alkaline Phosphatase 69 U/L (40-110); Anion Gap 13 mmol/L (10-20); BUN (Urea Nitrogen) 19 mg/dL (8.4-25.7); Bilirubin, Total 0.8 mg/dL (0.2-1.2); Calc. Creatinine Clearance 0 mL/min (70-130); Calcium 9.1 mg/dL (7.8-10.44); Carbon Dioxide 26 mmol/L (23-31); Chloride 103 mmol/L (98-107); Globulin 2.9 g/dL (2.4-3.5); Glucose 98 mg/dL (83-110); Potassium 4.3 mmol/L (3.5-5.1); Protein, Total 6.8 g/dL (5.8-8.1); Sodium 138 mmol/L (136-145)
[2021-08-29 15:04] LABS: CKMB 1.2 ng/mL (0-6.6)
[2021-08-29] MEDS ORDERED: Aspirin Chewable 81 MG TAB ONE (16:13)
[2021-08-29] MEDS ORDERED: Senokot S 8.6-50 MG TAB PO PRN (16:19)
[2021-08-29] MEDS ORDERED: Acetaminophen 325 MG TAB PO PRN (16:19)
[2021-08-29] MEDS ORDERED: Labetalol HCl 100 MG/20 ML VIAL SLOW IVP PRN (16:19)
[2021-08-29] MEDS ORDERED: Bisacodyl 5 MG TAB PO PRN (16:19)
[2021-08-29] MEDS ORDERED: hydrALAZINE 20 MG/ML VIAL SLOW IVP PRN (16:19)
[2021-08-29] MEDS ORDERED: Acetaminophen 650 MG Suppository PR PRN (16:19)
[2021-08-29] MEDS ORDERED: Artificial Tear Sol 15 ML BOT EA EYE PRN (16:19)
[2021-08-29] MEDS ORDERED: Nitroglycerin 0.4 MG TAB (25 Tab Bottle) SL PRN (16:19)
[2021-08-29] MEDS ORDERED: Moisturizing Cream (Eucerin) 113 GM JAR TOP PRN (16:19)
[2021-08-29] MEDS ORDERED: Calcium Carbonate 500 MG ChewTAB PO PRN (16:19)
[2021-08-29] MEDS ORDERED: Enoxaparin Sodium 40 MG/0.4 ML SYRINGE SC SCH (16:30)
[2021-08-29] MEDS ORDERED: Furosemide 40 MG/4 ML VIAL ONE (16:48)
[2021-08-29] MEDS ORDERED: cefTRIAXone\\ROCEPHIN 1 GM in Sodium Chloride 0.9% 100 ML IVPB SCH (17:00)
[2021-08-29 17:48] VITALS: BMI 32.4
[2021-08-29] MEDS ORDERED: metroNIDAZOLE 500 MG in Premix Bag 1 BAG IVPB SCH (18:00)
[2021-08-29] MEDS: methylPREDNISolone Sod Succ 40 MG VIAL IVP SCH ×2 (18:19→23:05)
[2021-08-29] MEDS ORDERED: Mometasone/Formoterol 200/5 60 PUFF INH SCH (18:30)
[2021-08-29 18:45] LABS: Magnesium 2.1 mg/dL (1.6-2.6); Phosphorus 2.8 mg/dL (2.3-4.7)
[2021-08-29] MEDS ORDERED: Dextrose 5% in Water 1,000 ML IV PRN (18:49)
[2021-08-29] MEDS ORDERED: Dextrose 50% Abboject 50 ML SYRINGE SLOW IVP PRN (18:49)
[2021-08-29] MEDS ORDERED: HumaLOG 300 UNITS/3 ML VIAL SC PRN (18:49)
[2021-08-29 19:05] LABS: Troponin I 0.028 ng/mL (< 0.028)
[2021-08-29 20:16] LABS: SARS-CoV-2 NAA Rapid Test Not Detected (NotDetected)
[2021-08-29] MEDS: metFORMIN 500 MG TAB PO SCH (20:36)
[2021-08-29] MEDS: hydrALAZINE 25 MG TAB PO SCH (20:36)
[2021-08-29] MEDS: Gabapentin 300 MG CAP PO SCH (20:36)
[2021-08-29] MEDS: Sacubitril 49 MG/Valsartan 51 MG TABLET PO SCH (20:37)
[2021-08-29] MEDS ORDERED: Rosuvastatin 10 MG TAB PO SCH (21:00)
[2021-08-29 22:30] LABS: Troponin I 0.026 ng/mL (< 0.028)
[2021-08-30 04:21] LABS: #Lymphocytes 0.5 thou/uL (1.20-3.40); #Monocytes 0.2 thou/uL (0.11-0.59); %Basophils 0.5 % (0.0-1.0); %Eosinophils 0.4 % (0.0-10.0); %Lymphocytes 8.9 % (21.0-51.0); %Monocytes 3.2 % (0.0-10.0); Hemoglobin 10.8 g/dL (14.0-18.0); Mean Corpuscular HGB CONC 31.9 g/dL (32.0-36.0); Mean Corpuscular Hemoglobin 30.8 pg (27.0-31.0); Mean Corpuscular Volume 96.4 fL (78.0-98.0); Mean Platelet Volume 8.8 fL (7.4-10.4); Platelet Count 161 thou/uL (130-400); RBC Distribution Width 16.4 % (11.5-14.5); Red Blood Cell (RBC) Count 3.51 mill/uL (4.70-6.10); White Blood Cell (WBC) Count 5.8 thou/uL (4.8-10.8)
[2021-08-30 04:59] LABS: ALT (SGPT) 10 U/L (8-55); AST (SGOT) 12 U/L (5-34); Albumin 3.9 g/dL (3.4-4.8); Alkaline Phosphatase 68 U/L (40-110); Anion Gap 15 mmol/L (10-20); BUN (Urea Nitrogen) 25 mg/dL (8.4-25.7); Bilirubin, Total 0.4 mg/dL (0.2-1.2); Calc. Creatinine Clearance 63 mL/min (70-130); Calcium 9.6 mg/dL (7.8-10.44); Carbon Dioxide 26 mmol/L (23-31); Chloride 101 mmol/L (98-107); Glucose 127 mg/dL (83-110); Potassium 4.5 mmol/L (3.5-5.1); Protein, Total 6.9 g/dL (5.8-8.1); Sodium 137 mmol/L (136-145)
[2021-08-30] MEDS: Gabapentin 300 MG CAP PO SCH ×2 (05:33→13:53)
[2021-08-30] MEDS: hydrALAZINE 25 MG TAB PO SCH ×2 (05:33→13:53)
[2021-08-30] MEDS: methylPREDNISolone Sod Succ 40 MG VIAL IVP SCH (05:34)
[2021-08-30] MEDS ORDERED: Furosemide 40 MG/4 ML VIAL SLOW IVP SCH ×3 (06:00→14:00)
[2021-08-30] MEDS ORDERED: Mometasone 100 MCG/Formoterol 5 MCG 120 PUFF INHALER INH SCH (06:30)
[2021-08-30] MEDS ORDERED: Carvedilol 6.25 MG TAB PO SCH (08:00)
[2021-08-30 08:06] VITALS: TEMP 97.3
[2021-08-30] MEDS ORDERED: Bumetanide 1 MG TAB PO SCH (09:00)
[2021-08-30] MEDS ORDERED: Dutasteride 0.5 MG CAP PO SCH (09:00)
[2021-08-30] MEDS ORDERED: Aspirin Chewable 81 MG TAB PO SCH (09:00)
[2021-08-30] MEDS ORDERED: Tamsulosin HCl 0.4 MG CAP PO SCH (09:00)
[2021-08-30] MEDS ORDERED: Spironolactone 25 MG TAB PO SCH (09:00)
[2021-08-30] MEDS ORDERED: Enoxaparin Sodium 40 MG/0.4 ML SYRINGE SC SCH (09:00)
[2021-08-30] MEDS: metFORMIN 500 MG TAB PO SCH (09:04)
[2021-08-30] MEDS: Sacubitril 49 MG/Valsartan 51 MG TABLET PO SCH (09:05)
[2021-08-30 13:57] VITALS: BP 141/68
[2021-08-30] MEDS ORDERED: guaiFENesin ER 600 MG TAB PO SCH (21:00)
== END 2021-08-30 15:05 | disposition home or self-care (01) ==
LOC: ERS 12:58 → INTOOBSV 16:18 → 2NO 16:18
PROVIDERS: ADMIT Internal Medicine; ATTEND Internal Medicine
DX: J44.1 Chronic obstructive pulmonary disease with (acute) exacerbation (principal); J96.11 Chronic respiratory failure with hypoxia; E11.9 Type 2 diabetes mellitus without complications; I11.0 Hypertensive heart disease with heart failure; I50.43 Acute on chronic combined systolic (congestive) and diastolic (congestive) heart failure; E78.5 Hyperlipidemia, unspecified; I25.2 Old myocardial infarction; I25.10 Atherosclerotic heart disease of native coronary artery without angina pectoris; F17.210 Nicotine dependence, cigarettes, uncomplicated; I44.4 Left anterior fascicular block; J20.9 Acute bronchitis, unspecified; Z66 Do not resuscitate; Z79.82 Long term (current) use of aspirin; Z79.84 Long term (current) use of oral hypoglycemic drugs; Z79.899 Other long term (current) drug therapy; Z88.5 Allergy status to narcotic agent; Z88.6 Allergy status to analgesic agent; Z95.5 Presence of coronary angioplasty implant and graft; Z95.810 Presence of automatic (implantable) cardiac defibrillator; Z99.81 Dependence on supplemental oxygen; Z20.822 Contact with and (suspected) exposure to COVID-19
CPT/HCPCS: 71045; 71260; 80053; 82553; 82962 ×2; 83605; 83735; 83880 ×2; 84100; 84145; 84484 ×2; 85025; 87040; 87804 ×2; 93005; 94640 ×3; 94644; 94667; 96365; 96368; 96372; 96375; 96376 ×2; 97139 ×3; 97535; 99285; G0378 ×2; U0002; 36415; 36416; 84443; 96366; J0696; J1650; J1815; J1940; J1956; J2920; J2930; J3475; J3490; J7611; J7620; Q9967

== ENCOUNTER 2021-09-10 13:40 | Inpatient (IN) | payer MEDICARE ==
[2021-09-10 14:27] LABS: #Lymphocytes 1.4 thou/uL (1.20-3.40); #Monocytes 0.4 thou/uL (0.11-0.59); #Neutrophils 5.6 thou/uL (1.40-6.50); %Basophils 0.4 % (0.0-1.0); %Eosinophils 0.5 % (0.0-10.0); %Lymphocytes 18.5 % (21.0-51.0); %Monocytes 5.9 % (0.0-10.0); %Neutrophils 74.8 % (42.0-75.0); Hemoglobin 11.7 g/dL (14.0-18.0); Mean Corpuscular HGB CONC 32.1 g/dL (32.0-36.0); Mean Corpuscular Hemoglobin 30.3 pg (27.0-31.0); Mean Corpuscular Volume 94.3 fL (78.0-98.0); Mean Platelet Volume 8.9 fL (7.4-10.4); Platelet Count 141 thou/uL (130-400); RBC Distribution Width 16.5 % (11.5-14.5); Red Blood Cell (RBC) Count 3.88 mill/uL (4.70-6.10); White Blood Cell (WBC) Count 7.4 thou/uL (4.8-10.8)
[2021-09-10] MEDS ORDERED: Magnesium 2 GM/50 ML BAG (IN WATER) ONE (14:36)
[2021-09-10] MEDS ORDERED: methylPREDNISolone Sod Succ/PF 125 MG/2 ML VIAL ONE (14:36)
[2021-09-10] MEDS ORDERED: Albuterol Sulfate 2.5 mg/3 ml Neb ONE ×2 (14:54→16:00)
[2021-09-10] MEDS ORDERED: Ipratropium Bromide 2.5 ml Neb ONE ×2 (14:54→16:00)
[2021-09-10] MEDS ORDERED: Albuterol Sulfate 2.5 mg/0.5 ml Neb ONE ×2 (14:54→16:00)
[2021-09-10 15:03] LABS: ALT (SGPT) 17 U/L (8-55); AST (SGOT) 21 U/L (5-34); Albumin 3.6 g/dL (3.4-4.8); Alkaline Phosphatase 51 U/L (40-110); Anion Gap 13 mmol/L (10-20); BUN (Urea Nitrogen) 18 mg/dL (8.4-25.7); Bilirubin, Total 0.5 mg/dL (0.2-1.2); Calc. Creatinine Clearance 0 mL/min (70-130); Calcium 8.7 mg/dL (7.8-10.44); Carbon Dioxide 27 mmol/L (23-31); Chloride 102 mmol/L (98-107); Globulin 2.4 g/dL (2.4-3.5); Glucose 78 mg/dL (83-110); Potassium 4.1 mmol/L (3.5-5.1); Sodium 138 mmol/L (136-145)
[2021-09-10 15:12] LABS: CKMB 1.6 ng/mL (0-6.6)
[2021-09-10 18:37] LABS: Troponin I 0.083 ng/mL (< 0.028)
[2021-09-10 19:58] VITALS: BMI 32.8
[2021-09-10] MEDS ORDERED: Amitriptyline HCl 10 MG TAB PO SCH (21:00)
[2021-09-10 21:20] LABS: Troponin I 0.064 ng/mL (< 0.028)
[2021-09-10] MEDS ORDERED: Bisacodyl 5 MG TAB PO PRN (22:04)
[2021-09-10] MEDS ORDERED: Acetaminophen 325 MG TAB PO PRN (22:04)
[2021-09-10] MEDS ORDERED: guaiFENesin ER 600 MG TAB PO SCH (22:15)
[2021-09-10] MEDS ORDERED: Bumetanide 1 MG/4 ML VIAL IVP SCH (22:30)
[2021-09-10] MEDS: Nicotine 21 MG PATCH TD SCH (23:03)
[2021-09-10] MEDS: methylPREDNISolone Sod Succ 40 MG VIAL IVP SCH (23:03)
[2021-09-10] MEDS: Zolpidem Tartrate 5 MG TAB PO PRN (23:04)
[2021-09-11] MEDS ORDERED: Amitriptyline HCl 10 MG TAB PO SCH (00:45)
[2021-09-11 05:14] LABS: #Lymphocytes 0.5 thou/uL (1.20-3.40); #Monocytes 0.1 thou/uL (0.11-0.59); #Neutrophils 2.2 thou/uL (1.40-6.50); %Eosinophils 0.5 % (0.0-10.0); %Lymphocytes 16.8 % (21.0-51.0); %Monocytes 1.9 % (0.0-10.0); %Neutrophils 80.8 % (42.0-75.0); Hemoglobin 11.1 g/dL (14.0-18.0); Mean Corpuscular HGB CONC 32.2 g/dL (32.0-36.0); Mean Corpuscular Hemoglobin 30.3 pg (27.0-31.0); Mean Corpuscular Volume 94.1 fL (78.0-98.0); Platelet Count 138 thou/uL (130-400); RBC Distribution Width 16.1 % (11.5-14.5); Red Blood Cell (RBC) Count 3.66 mill/uL (4.70-6.10); White Blood Cell (WBC) Count 2.7 thou/uL (4.8-10.8)
[2021-09-11 05:42] LABS: ALT (SGPT) 16 U/L (8-55); AST (SGOT) 14 U/L (5-34); Albumin 3.4 g/dL (3.4-4.8); Alkaline Phosphatase 53 U/L (40-110); Anion Gap 17 mmol/L (10-20); BUN (Urea Nitrogen) 20 mg/dL (8.4-25.7); Bilirubin, Total 0.5 mg/dL (0.2-1.2); Calc. Creatinine Clearance 70 mL/min (70-130); Calcium 8.6 mg/dL (7.8-10.44); Carbon Dioxide 23 mmol/L (23-31); Chloride 102 mmol/L (98-107); Globulin 2.7 g/dL (2.4-3.5); Glucose 250 mg/dL (83-110); Protein, Total 6.1 g/dL (5.8-8.1); Sodium 138 mmol/L (136-145)
[2021-09-11] MEDS: methylPREDNISolone Sod Succ 40 MG VIAL IVP SCH ×3 (06:14→18:50)
[2021-09-11] MEDS: Bumetanide 1 MG/4 ML VIAL IVP SCH ×2 (06:14→15:49)
[2021-09-11] MEDS: HumaLOG 300 UNITS/3 ML VIAL SC PRN ×3 (06:14→18:48)
[2021-09-11] MEDS: Mometasone/Formoterol 200/5 60 PUFF INH SCH ×2 (07:10→18:52)
[2021-09-11] MEDS ORDERED: Spironolactone 25 MG TAB PO SCH ×2 (08:00→13:00)
[2021-09-11] MEDS: Carvedilol 6.25 MG TAB PO SCH ×2 (09:00→15:49)
[2021-09-11] MEDS: Gabapentin 300 MG CAP PO SCH ×3 (09:01→21:21)
[2021-09-11] MEDS: Enoxaparin Sodium 40 MG/0.4 ML SYRINGE SC SCH (09:01)
[2021-09-11] MEDS: guaiFENesin ER 600 MG TAB PO SCH ×2 (09:02→21:20)
[2021-09-11] MEDS: Sacubitril 49 MG/Valsartan 51 MG TABLET PO SCH ×2 (09:03→21:20)
[2021-09-11] MEDS: Tamsulosin HCl 0.4 MG CAP PO SCH (09:03)
[2021-09-11] MEDS: Albuterol 200 PUFF (6.7GM INHALER) INH PRN ×2 (15:56→21:27)
[2021-09-11] MEDS: Albuterol 200 PUFF (6.7GM INHALER) INH SCH (18:52)
[2021-09-11] MEDS: Zolpidem Tartrate 5 MG TAB PO PRN (21:20)
[2021-09-11] MEDS: Amitriptyline HCl 10 MG TAB PO SCH (21:20)
[2021-09-11] MEDS: Insulin Glargine 30 UNITS/0.3 ML VIAL SC SCH (21:21)
[2021-09-12] MEDS: methylPREDNISolone Sod Succ 40 MG VIAL IVP SCH ×3 (00:52→18:42)
[2021-09-12] MEDS: Nicotine 21 MG PATCH TD SCH ×2 (00:52→23:40)
[2021-09-12] MEDS: cefTRIAXone\\ROCEPHIN 1 GM in Sodium Chloride 0.9% 100 ML IVPB SCH ×2 (00:52→23:40)
[2021-09-12] MEDS: Albuterol 200 PUFF (6.7GM INHALER) INH SCH ×4 (00:53→20:28)
[2021-09-12 04:33] LABS: #Lymphocytes 0.7 thou/uL (1.20-3.40); #Monocytes 0.3 thou/uL (0.11-0.59); #Neutrophils 8.1 thou/uL (1.40-6.50); %Basophils 0.1 % (0.0-1.0); %Eosinophils 0.1 % (0.0-10.0); %Lymphocytes 7.3 % (21.0-51.0); %Monocytes 3.6 % (0.0-10.0); Hemoglobin 11.5 g/dL (14.0-18.0); Mean Corpuscular HGB CONC 31.5 g/dL (32.0-36.0); Mean Corpuscular Hemoglobin 29.8 pg (27.0-31.0); Mean Corpuscular Volume 94.5 fL (78.0-98.0); Mean Platelet Volume 8.8 fL (7.4-10.4); Platelet Count 168 thou/uL (130-400); RBC Distribution Width 16.2 % (11.5-14.5); Red Blood Cell (RBC) Count 3.86 mill/uL (4.70-6.10); White Blood Cell (WBC) Count 9.1 thou/uL (4.8-10.8)
[2021-09-12 04:58] LABS: Anion Gap 11 mmol/L (10-20); BUN (Urea Nitrogen) 24 mg/dL (8.4-25.7); Calc. Creatinine Clearance 79 mL/min (70-130); Calcium 8.7 mg/dL (7.8-10.44); Carbon Dioxide 31 mmol/L (23-31); Chloride 101 mmol/L (98-107); Glucose 180 mg/dL (83-110); Magnesium 1.9 mg/dL (1.6-2.6); Sodium 139 mmol/L (136-145)
[2021-09-12] MEDS: Bumetanide 1 MG/4 ML VIAL IVP SCH ×2 (06:02→15:53)
[2021-09-12] MEDS: HumaLOG 300 UNITS/3 ML VIAL SC PRN ×2 (06:29→12:50)
[2021-09-12] MEDS: Mometasone/Formoterol 200/5 60 PUFF INH SCH ×2 (06:50→20:29)
[2021-09-12] MEDS: Enoxaparin Sodium 40 MG/0.4 ML SYRINGE SC SCH (10:14)
[2021-09-12] MEDS: Gabapentin 300 MG CAP PO SCH ×3 (10:14→20:29)
[2021-09-12] MEDS: guaiFENesin ER 600 MG TAB PO SCH ×2 (10:15→20:30)
[2021-09-12] MEDS: Tamsulosin HCl 0.4 MG CAP PO SCH (10:16)
[2021-09-12] MEDS: Sacubitril 49 MG/Valsartan 51 MG TABLET PO SCH ×2 (10:16→20:30)
[2021-09-12] MEDS: Carvedilol 6.25 MG TAB PO SCH ×2 (10:30→18:42)
[2021-09-12] MEDS: Spironolactone 25 MG TAB PO SCH (10:31)
[2021-09-12] MEDS: Albuterol 200 PUFF (6.7GM INHALER) INH PRN (12:49)
[2021-09-12] MEDS ORDERED: Acetylcysteine 20% 200 MG/ML 30 ML VIAL INH SCH (13:00)
[2021-09-12] MEDS ORDERED: Ondansetron PF 4 MG/2 ML Vial IVP PRN (16:07)
[2021-09-12] MEDS: Amitriptyline HCl 10 MG TAB PO SCH (20:30)
[2021-09-12] MEDS: Insulin Glargine 30 UNITS/0.3 ML VIAL SC SCH (20:31)
[2021-09-13] MEDS: Albuterol 200 PUFF (6.7GM INHALER) INH SCH ×4 (00:34→19:01)
[2021-09-13] MEDS: cefTRIAXone\\ROCEPHIN 1 GM in Sodium Chloride 0.9% 100 ML IVPB SCH (02:06)
[2021-09-13 05:02] LABS: #Lymphocytes 0.7 thou/uL (1.20-3.40); #Monocytes 0.7 thou/uL (0.11-0.59); #Neutrophils 13.2 thou/uL (1.40-6.50); %Eosinophils 0.1 % (0.0-10.0); %Lymphocytes 4.6 % (21.0-51.0); %Monocytes 4.5 % (0.0-10.0); %Neutrophils 90.8 % (42.0-75.0); Hemoglobin 12.6 g/dL (14.0-18.0); Mean Corpuscular HGB CONC 31.8 g/dL (32.0-36.0); Mean Corpuscular Hemoglobin 30.5 pg (27.0-31.0); Mean Platelet Volume 8.7 fL (7.4-10.4); Platelet Count 196 thou/uL (130-400); RBC Distribution Width 16.1 % (11.5-14.5); Red Blood Cell (RBC) Count 4.13 mill/uL (4.70-6.10); White Blood Cell (WBC) Count 14.5 thou/uL (4.8-10.8)
[2021-09-13 05:29] LABS: Anion Gap 13 mmol/L (10-20); BUN (Urea Nitrogen) 28 mg/dL (8.4-25.7); Calc. Creatinine Clearance 73 mL/min (70-130); Calcium 8.8 mg/dL (7.8-10.44); Carbon Dioxide 33 mmol/L (23-31); Chloride 99 mmol/L (98-107); Glucose 157 mg/dL (83-110); Magnesium 1.9 mg/dL (1.6-2.6); Potassium 4.3 mmol/L (3.5-5.1); Sodium 141 mmol/L (136-145)
[2021-09-13] MEDS: methylPREDNISolone Sod Succ 40 MG VIAL IVP SCH ×2 (06:09→17:15)
[2021-09-13] MEDS: Bumetanide 1 MG/4 ML VIAL IVP SCH ×2 (06:09→14:02)
[2021-09-13] MEDS: Mometasone/Formoterol 200/5 60 PUFF INH SCH ×2 (06:10→18:47)
[2021-09-13] MEDS: Carvedilol 6.25 MG TAB PO SCH ×2 (07:58→17:15)
[2021-09-13] MEDS: Spironolactone 25 MG TAB PO SCH (07:58)
[2021-09-13] MEDS: Sacubitril 49 MG/Valsartan 51 MG TABLET PO SCH ×2 (07:59→20:57)
[2021-09-13] MEDS: Gabapentin 300 MG CAP PO SCH ×3 (07:59→20:56)
[2021-09-13] MEDS: guaiFENesin ER 600 MG TAB PO SCH ×2 (07:59→20:56)
[2021-09-13] MEDS: Enoxaparin Sodium 40 MG/0.4 ML SYRINGE SC SCH ×2 (07:59→20:55)
[2021-09-13] MEDS: Tamsulosin HCl 0.4 MG CAP PO SCH (07:59)
[2021-09-13] MEDS ORDERED: Carvedilol 6.25 MG TAB PO SCH (08:15)
[2021-09-13] MEDS ORDERED: Carvedilol 3.125 MG TAB PO SCH (10:15)
[2021-09-13] MEDS: NIFEdipine XL 60 MG TAB PO SCH (10:56)
[2021-09-13] MEDS ORDERED: Magnesium Sulfate 3 GM in Sodium Chloride 0.9% 100 ML IVPB SCH (12:45)
[2021-09-13] MEDS: HumaLOG 300 UNITS/3 ML VIAL SC PRN (17:15)
[2021-09-13] MEDS: Amitriptyline HCl 10 MG TAB PO SCH (20:54)
[2021-09-13] MEDS: Cefuroxime Axetil 250 MG TAB PO SCH (20:55)
[2021-09-13] MEDS: Insulin Glargine 30 UNITS/0.3 ML VIAL SC SCH (20:57)
[2021-09-13] MEDS ORDERED: Dextrose 5% in Water 1,000 ML IV PRN (23:24)
[2021-09-13] MEDS ORDERED: Dextrose 50% Abboject 50 ML SYRINGE SLOW IVP PRN (23:24)
[2021-09-14] MEDS: Albuterol 200 PUFF (6.7GM INHALER) INH SCH ×4 (02:10→20:32)
[2021-09-14] MEDS: methylPREDNISolone Sod Succ 40 MG VIAL IVP SCH ×5 (02:10→23:59)
[2021-09-14 05:17] LABS: #Lymphocytes 0.6 thou/uL (1.20-3.40); #Monocytes 0.4 thou/uL (0.11-0.59); #Neutrophils 8.4 thou/uL (1.40-6.50); %Eosinophils 0.1 % (0.0-10.0); %Lymphocytes 6.7 % (21.0-51.0); %Monocytes 3.8 % (0.0-10.0); %Neutrophils 89.5 % (42.0-75.0); Hemoglobin 12.7 g/dL (14.0-18.0); Mean Corpuscular HGB CONC 31.3 g/dL (32.0-36.0); Mean Corpuscular Hemoglobin 29.8 pg (27.0-31.0); Mean Corpuscular Volume 95.3 fL (78.0-98.0); Mean Platelet Volume 8.9 fL (7.4-10.4); Platelet Count 176 thou/uL (130-400); Red Blood Cell (RBC) Count 4.27 mill/uL (4.70-6.10); White Blood Cell (WBC) Count 9.4 thou/uL (4.8-10.8)
[2021-09-14 05:47] LABS: Anion Gap 12 mmol/L (10-20); BUN (Urea Nitrogen) 30 mg/dL (8.4-25.7); Calc. Creatinine Clearance 77 mL/min (70-130); Calcium 8.7 mg/dL (7.8-10.44); Carbon Dioxide 32 mmol/L (23-31); Chloride 100 mmol/L (98-107); Glucose 204 mg/dL (83-110); Potassium 3.7 mmol/L (3.5-5.1); Sodium 140 mmol/L (136-145)
[2021-09-14] MEDS: Mometasone/Formoterol 200/5 60 PUFF INH SCH ×2 (06:39→20:32)
[2021-09-14] MEDS: Bumetanide 1 MG/4 ML VIAL IVP SCH ×2 (06:41→15:01)
[2021-09-14] MEDS: HumaLOG 300 UNITS/3 ML VIAL SC PRN ×4 (06:45→20:35)
[2021-09-14] MEDS: Gabapentin 300 MG CAP PO SCH ×3 (09:37→20:34)
[2021-09-14] MEDS: Carvedilol 6.25 MG TAB PO SCH ×2 (09:37→17:12)
[2021-09-14] MEDS: Spironolactone 25 MG TAB PO SCH (09:37)
[2021-09-14] MEDS: Tamsulosin HCl 0.4 MG CAP PO SCH (09:37)
[2021-09-14] MEDS: NIFEdipine XL 60 MG TAB PO SCH (09:37)
[2021-09-14] MEDS: Sacubitril 49 MG/Valsartan 51 MG TABLET PO SCH ×2 (09:37→20:34)
[2021-09-14] MEDS: Cefuroxime Axetil 250 MG TAB PO SCH ×2 (09:38→20:34)
[2021-09-14] MEDS: guaiFENesin ER 600 MG TAB PO SCH ×2 (09:38→20:33)
[2021-09-14] MEDS: Enoxaparin Sodium 40 MG/0.4 ML SYRINGE SC SCH ×2 (09:38→20:34)
[2021-09-14] MEDS ORDERED: Amiodarone 150 MG in Dextrose 5% in Water 100 ML IVPB SCH (10:30)
[2021-09-14 11:11] LABS: ALT (SGPT) 24 U/L (8-55); AST (SGOT) 18 U/L (5-34); Albumin 3.4 g/dL (3.4-4.8); Alkaline Phosphatase 53 U/L (40-110); Bilirubin, Direct 0.2 mg/dL (0.1-0.3); Bilirubin, Total 0.5 mg/dL (0.2-1.2); Magnesium 2.1 mg/dL (1.6-2.6); Protein, Total 5.9 g/dL (5.8-8.1)
[2021-09-14] MEDS: Amiodarone 450 MG in Dextrose 5% in Water 250 ML IVPB SCH (12:00)
[2021-09-14] MEDS: Amitriptyline HCl 10 MG TAB PO SCH (20:34)
[2021-09-14] MEDS: Insulin Glargine 30 UNITS/0.3 ML VIAL SC SCH (20:35)
[2021-09-14] MEDS ORDERED: Calcium Carbonate 500 MG ChewTAB PO PRN (23:04)
[2021-09-14] MEDS: Nicotine 21 MG PATCH TD SCH ×2 (23:59)
[2021-09-15] MEDS: Albuterol 200 PUFF (6.7GM INHALER) INH SCH ×4 (01:30→18:25)
[2021-09-15 05:04] LABS: #Lymphocytes 0.6 thou/uL (1.20-3.40); #Monocytes 0.5 thou/uL (0.11-0.59); %Basophils 0.3 % (0.0-1.0); %Eosinophils 0.1 % (0.0-10.0); %Lymphocytes 5.3 % (21.0-51.0); %Neutrophils 90.4 % (42.0-75.0); Hemoglobin 12.7 g/dL (14.0-18.0); Mean Corpuscular HGB CONC 30.5 g/dL (32.0-36.0); Mean Corpuscular Hemoglobin 28.9 pg (27.0-31.0); Mean Corpuscular Volume 94.7 fL (78.0-98.0); Mean Platelet Volume 8.8 fL (7.4-10.4); Platelet Count 185 thou/uL (130-400); RBC Distribution Width 16.1 % (11.5-14.5); Red Blood Cell (RBC) Count 4.39 mill/uL (4.70-6.10); White Blood Cell (WBC) Count 12.1 thou/uL (4.8-10.8)
[2021-09-15 05:22] LABS: Anion Gap 13 mmol/L (10-20); BUN (Urea Nitrogen) 32 mg/dL (8.4-25.7); Calc. Creatinine Clearance 75 mL/min (70-130); Carbon Dioxide 35 mmol/L (23-31); Chloride 97 mmol/L (98-107); Glucose 191 mg/dL (83-110); Potassium 3.7 mmol/L (3.5-5.1); Sodium 141 mmol/L (136-145)
[2021-09-15] MEDS: Bumetanide 1 MG/4 ML VIAL IVP SCH ×2 (06:04→14:29)
[2021-09-15] MEDS: HumaLOG 300 UNITS/3 ML VIAL SC PRN ×3 (06:04→17:15)
[2021-09-15] MEDS: methylPREDNISolone Sod Succ 40 MG VIAL IVP SCH ×4 (06:04→23:24)
[2021-09-15] MEDS: Mometasone/Formoterol 200/5 60 PUFF INH SCH ×2 (06:08→18:24)
[2021-09-15] MEDS: NIFEdipine XL 60 MG TAB PO SCH (10:05)
[2021-09-15] MEDS: Spironolactone 25 MG TAB PO SCH (10:05)
[2021-09-15] MEDS: Carvedilol 6.25 MG TAB PO SCH ×2 (10:06→17:14)
[2021-09-15] MEDS: Gabapentin 300 MG CAP PO SCH ×3 (10:06→20:49)
[2021-09-15] MEDS: Tamsulosin HCl 0.4 MG CAP PO SCH (10:06)
[2021-09-15] MEDS: Sacubitril 49 MG/Valsartan 51 MG TABLET PO SCH ×2 (10:06→20:49)
[2021-09-15] MEDS: guaiFENesin ER 600 MG TAB PO SCH ×2 (10:06→20:50)
[2021-09-15] MEDS: Enoxaparin Sodium 40 MG/0.4 ML SYRINGE SC SCH ×2 (10:07→20:50)
[2021-09-15] MEDS: Cefuroxime Axetil 250 MG TAB PO SCH ×2 (10:14→20:50)
[2021-09-15] MEDS: Amiodarone 450 MG in Dextrose 5% in Water 250 ML IVPB SCH (15:29)
[2021-09-15] MEDS: Insulin Glargine 30 UNITS/0.3 ML VIAL SC SCH (20:50)
[2021-09-15] MEDS: Amitriptyline HCl 10 MG TAB PO SCH (20:50)
[2021-09-15] MEDS: Nicotine 21 MG PATCH TD SCH (23:23)
[2021-09-16] MEDS: Albuterol 200 PUFF (6.7GM INHALER) INH SCH ×4 (01:58→18:36)
[2021-09-16 05:05] LABS: #Lymphocytes 0.6 thou/uL (1.20-3.40); #Monocytes 0.5 thou/uL (0.11-0.59); #Neutrophils 11.1 thou/uL (1.40-6.50); %Eosinophils 0.3 % (0.0-10.0); %Lymphocytes 4.6 % (21.0-51.0); %Monocytes 4.1 % (0.0-10.0); Hemoglobin 12.8 g/dL (14.0-18.0); Mean Corpuscular HGB CONC 31.3 g/dL (32.0-36.0); Mean Corpuscular Hemoglobin 29.7 pg (27.0-31.0); Mean Corpuscular Volume 95.1 fL (78.0-98.0); Mean Platelet Volume 8.9 fL (7.4-10.4); Platelet Count 207 thou/uL (130-400); RBC Distribution Width 15.9 % (11.5-14.5); Red Blood Cell (RBC) Count 4.31 mill/uL (4.70-6.10); White Blood Cell (WBC) Count 12.2 thou/uL (4.8-10.8)
[2021-09-16] MEDS: methylPREDNISolone Sod Succ 40 MG VIAL IVP SCH ×2 (05:14→14:53)
[2021-09-16] MEDS: Bumetanide 1 MG/4 ML VIAL IVP SCH ×2 (05:14→17:14)
[2021-09-16 05:36] LABS: Anion Gap 16 mmol/L (10-20); BUN (Urea Nitrogen) 37 mg/dL (8.4-25.7); Calc. Creatinine Clearance 67 mL/min (70-130); Carbon Dioxide 32 mmol/L (23-31); Chloride 97 mmol/L (98-107); Glucose 256 mg/dL (83-110); Potassium 3.8 mmol/L (3.5-5.1); Sodium 141 mmol/L (136-145)
[2021-09-16] MEDS: HumaLOG 300 UNITS/3 ML VIAL SC PRN ×3 (06:03→21:41)
[2021-09-16] MEDS: Mometasone/Formoterol 200/5 60 PUFF INH SCH ×2 (07:05→18:35)
[2021-09-16] MEDS: Amiodarone 450 MG in Dextrose 5% in Water 250 ML IVPB SCH (08:54)
[2021-09-16] MEDS: Spironolactone 25 MG TAB PO SCH (08:57)
[2021-09-16] MEDS: Carvedilol 6.25 MG TAB PO SCH ×2 (08:57→19:37)
[2021-09-16] MEDS: Cefuroxime Axetil 250 MG TAB PO SCH ×2 (08:58→21:37)
[2021-09-16] MEDS: Empagliflozin 10 MG TAB PO SCH (08:58)
[2021-09-16] MEDS: Enoxaparin Sodium 40 MG/0.4 ML SYRINGE SC SCH ×2 (08:58→21:37)
[2021-09-16] MEDS: Gabapentin 300 MG CAP PO SCH ×3 (08:59→21:37)
[2021-09-16] MEDS: guaiFENesin ER 600 MG TAB PO SCH ×2 (08:59→21:38)
[2021-09-16] MEDS: hydrALAZINE 25 MG TAB PO SCH ×3 (09:00→21:39)
[2021-09-16] MEDS: Sacubitril 49 MG/Valsartan 51 MG TABLET PO SCH ×2 (09:00→21:40)
[2021-09-16] MEDS: Tamsulosin HCl 0.4 MG CAP PO SCH (09:01)
[2021-09-16] MEDS: Amitriptyline HCl 10 MG TAB PO SCH (21:37)
[2021-09-16] MEDS: Insulin Glargine 30 UNITS/0.3 ML VIAL SC SCH (21:40)
[2021-09-16] MEDS: Nicotine 21 MG PATCH TD SCH (23:34)
[2021-09-17] MEDS: Albuterol 200 PUFF (6.7GM INHALER) INH SCH ×2 (00:19→06:33)
[2021-09-17] MEDS: Amiodarone 450 MG in Dextrose 5% in Water 250 ML IVPB SCH (03:11)
[2021-09-17] MEDS: Bumetanide 1 MG/4 ML VIAL IVP SCH (06:25)
[2021-09-17] MEDS: Mometasone/Formoterol 200/5 60 PUFF INH SCH (06:26)
[2021-09-17] MEDS ORDERED: predniSONE 20 MG TAB PO SCH (08:00)
[2021-09-17 08:28] VITALS: TEMP 98.2
[2021-09-17] MEDS ORDERED: cloNIDine 0.1 MG TAB PO SCH (09:00)
[2021-09-17] MEDS ORDERED: Amiodarone 200 MG TAB PO SCH ×2 (09:00→21:00)
[2021-09-17] MEDS: Sacubitril 49 MG/Valsartan 51 MG TABLET PO SCH (10:33)
[2021-09-17] MEDS: guaiFENesin ER 600 MG TAB PO SCH (10:33)
[2021-09-17] MEDS: hydrALAZINE 25 MG TAB PO SCH (10:33)
[2021-09-17] MEDS: Empagliflozin 10 MG TAB PO SCH (10:33)
[2021-09-17] MEDS: Gabapentin 300 MG CAP PO SCH (10:34)
[2021-09-17] MEDS: Tamsulosin HCl 0.4 MG CAP PO SCH (10:34)
[2021-09-17] MEDS: Cefuroxime Axetil 250 MG TAB PO SCH (10:34)
[2021-09-17] MEDS: Enoxaparin Sodium 40 MG/0.4 ML SYRINGE SC SCH (10:37)
[2021-09-17] MEDS: Spironolactone 25 MG TAB PO SCH (10:38)
[2021-09-17] MEDS: Carvedilol 6.25 MG TAB PO SCH (10:39)
[2021-09-17 12:25] VITALS: BP 149/69
== END 2021-09-17 15:30 | disposition home or self-care (01) | DRG 177 ==
LOC: ERS 13:40 → 2SW 17:11 → OBSVTOIN 22:19
PROVIDERS: ADMIT Internal Medicine; ATTEND Internal Medicine
PROC: 5A09357 Assistance with Respiratory Ventilation, Less than 24 Consecutive Hours, Continuous Positive Airway Pressure (ICD-10-PCS; principal; 2021-09-10)
PROC: 8E0ZXY6 Isolation (ICD-10-PCS; 2021-09-10)
DX: U07.1 COVID-19 (principal); J96.21 Acute and chronic respiratory failure with hypoxia; I50.23 Acute on chronic systolic (congestive) heart failure; J44.1 Chronic obstructive pulmonary disease with (acute) exacerbation; I47.2 Ventricular tachycardia; E87.1 Hypo-osmolality and hyponatremia; I42.8 Other cardiomyopathies; F17.210 Nicotine dependence, cigarettes, uncomplicated; I11.0 Hypertensive heart disease with heart failure; E78.5 Hyperlipidemia, unspecified; Z96.652 Presence of left artificial knee joint; Z96.642 Presence of left artificial hip joint; G47.33 Obstructive sleep apnea (adult) (pediatric); I25.10 Atherosclerotic heart disease of native coronary artery without angina pectoris; E78.00 Pure hypercholesterolemia, unspecified; E11.65 Type 2 diabetes mellitus with hyperglycemia; R94.6 Abnormal results of thyroid function studies; T38.0X5A Adverse effect of glucocorticoids and synthetic analogues, initial encounter; Z82.49 Family history of ischemic heart disease and other diseases of the circulatory system; Z88.5 Allergy status to narcotic agent; Z95.810 Presence of automatic (implantable) cardiac defibrillator; Z99.81 Dependence on supplemental oxygen; Z79.899 Other long term (current) drug therapy; Z79.82 Long term (current) use of aspirin; Z79.84 Long term (current) use of oral hypoglycemic drugs; Z79.51 Long term (current) use of inhaled steroids; I25.2 Old myocardial infarction; Z95.5 Presence of coronary angioplasty implant and graft; Z98.890 Other specified postprocedural states; Z71.6 Tobacco abuse counseling; Z86.16 Personal history of COVID-19; Z79.52 Long term (current) use of systemic steroids
CPT/HCPCS: 36415; 36416; 71045; 80048; 80053; 80076; 82553; 83735; 83880; 84439; 84443; 84484; 85025; 93005; 93306; 94640; 94660; 94664; 94667; 94760; 96365; 96375; G0378; J0282; J0696; J1650; J1815; J2920; J2930; J3475; J3490; J7070; J7512; J7611; J7620; U0003; U0005

== ENCOUNTER 2021-11-21 12:11 | Observation (INO) | payer MEDICARE ==
[2021-11-21 13:22] LABS: #Eosinphils 0.4 thou/uL (0.0-0.7); #Lymphocytes 2.1 thou/uL (1.20-3.40); #Monocytes 0.7 thou/uL (0.11-0.59); #Neutrophils 10.1 thou/uL (1.40-6.50); %Basophils 0.3 % (0.0-1.0); %Eosinophils 3.2 % (0.0-10.0); %Lymphocytes 15.6 % (21.0-51.0); %Monocytes 5.1 % (0.0-10.0); %Neutrophils 75.9 % (42.0-75.0); Hemoglobin 13.4 g/dL (14.0-18.0); Mean Corpuscular HGB CONC 32.9 g/dL (32.0-36.0); Mean Corpuscular Hemoglobin 31.4 pg (27.0-31.0); Mean Corpuscular Volume 95.6 fL (78.0-98.0); Mean Platelet Volume 8.4 fL (7.4-10.4); Platelet Count 168 thou/uL (130-400); RBC Distribution Width 15.7 % (11.5-14.5); Red Blood Cell (RBC) Count 4.25 mill/uL (4.70-6.10); White Blood Cell (WBC) Count 13.3 thou/uL (4.8-10.8)
[2021-11-21 13:50] LABS: Acetaminophen Less than 10.0 mcg/mL (10.0-30.0); Alcohol Less than 10 mg/dL (Less than 10); Salicylate Less than 8.0 mg/dL (15.0-30.0)
[2021-11-21 13:51] LABS: ALT (SGPT) 14 U/L (8-55); AST (SGOT) 18 U/L (5-34); Albumin 3.8 g/dL (3.4-4.8); Alkaline Phosphatase 78 U/L (40-110); Anion Gap 16 mmol/L (10-20); BUN (Urea Nitrogen) 19 mg/dL (8.4-25.7); Bilirubin, Total 0.3 mg/dL (0.2-1.2); CK (CPK) 43 U/L (30-200); Calc. Creatinine Clearance 0 mL/min (70-130); Calcium 9.6 mg/dL (7.8-10.44); Carbon Dioxide 22 mmol/L (23-31); Chloride 103 mmol/L (98-107); Estimated GFR 54; Globulin 2.9 g/dL (2.4-3.5); Glucose 120 mg/dL (83-110); Lipase 19 U/L (8-78); Potassium 4.2 mmol/L (3.5-5.1); Protein, Total 6.7 g/dL (5.8-8.1); Sodium 137 mmol/L (136-145)
[2021-11-21] MEDS ORDERED: Aspirin Chewable 81 MG TAB ONE (14:48)
[2021-11-21 17:12] LABS: Troponin I 0.016 ng/mL (< 0.028)
[2021-11-21] MEDS ORDERED: Acetaminophen 650 MG Suppository PR PRN (17:33)
[2021-11-21] MEDS ORDERED: Ondansetron ODT 4 MG TAB PO PRN (17:33)
[2021-11-21] MEDS ORDERED: Acetaminophen 325 MG TAB PO PRN (17:33)
[2021-11-21] MEDS ORDERED: hydrALAZINE 20 MG/ML VIAL SLOW IVP PRN (17:33)
[2021-11-21] MEDS ORDERED: Ondansetron PF 4 MG/2 ML Vial IVP PRN (17:33)
[2021-11-21] MEDS ORDERED: Albuterol 200 PUFF (6.7GM INHALER) INH PRN (17:48)
[2021-11-21] MEDS ORDERED: Dextrose 50% Abboject 50 ML SYRINGE SLOW IVP PRN (17:51)
[2021-11-21] MEDS ORDERED: Dextrose 5% in Water 1,000 ML IV PRN (17:51)
[2021-11-21] MEDS ORDERED: Insulin Regular 300 UNITS/3 ML VIAL SC PRN ×2 (17:51)
[2021-11-21 18:17] LABS: Bilirubin Negative (Negative); Blood, Urine Negative (Negative); Clarity Turbid (Clear); Glucose, Urine (Dipstick) Greater than 1000 mg/dL (Negative); Ketone, Urine Negative (Negative); Leukocyte 500 Leu/uL (Negative); Nitrite Negative (Negative); Protein, Urine (Dipstick) 10 mg/dL (Neg-Trace); RBC/HPF 0-3 HPF (0-3); Specific Gravity, Urine 1.018 (1.002-1.036); Squamous Epithelial 0-3 HPF (0-3); Urobilinogen Normal mg/dL (Less than 2); pH, Urine 5.5 (5.0-9.0)
[2021-11-21 18:23] LABS: Amphetamine Not Detected (NotDetected); Barbiturates Screen Not Detected (NotDetected); Benzodiazepine Screen Not Detected (NotDetected); Cocaine Metabolite Screen Not Detected (NotDetected); Methadone Not Detected (NotDetected); Methamphetamine Not Detected (NotDetected); Opiate Screen Not Detected (NotDetected); Oxycodone Screen Not Detected (NotDetected); Phencyclidine (PCP) Not Detected (NotDetected); THC/Cannabinoid Screen Not Detected (NotDetected); Tricyclic Screen Detected (NotDetected)
[2021-11-21 18:24] LABS: Bacteria/HPF 4+ HPF (None Seen); WBC/HPF 21-50 HPF (0-3)
[2021-11-21] MEDS ORDERED: guaiFENesin ER 600 MG TAB PO PRN (18:39)
[2021-11-21 19:01] VITALS: BMI 29.7
[2021-11-21] MEDS: Ipratropium Bromide 2.5 ml Neb NEB SCH ×2 (19:37→23:35)
[2021-11-21] MEDS ORDERED: Atorvastatin Calcium 40 MG TAB PO SCH (21:00)
[2021-11-21] MEDS ORDERED: Enoxaparin Sodium 40 MG/0.4 ML SYRINGE SC SCH (21:00)
[2021-11-22 05:24] LABS: #Eosinphils 0.4 thou/uL (0.0-0.7); #Lymphocytes 1.4 thou/uL (1.20-3.40); #Monocytes 0.7 thou/uL (0.11-0.59); #Neutrophils 8.9 thou/uL (1.40-6.50); %Basophils 0.1 % (0.0-1.0); %Eosinophils 3.4 % (0.0-10.0); %Lymphocytes 12.2 % (21.0-51.0); %Monocytes 6.2 % (0.0-10.0); %Neutrophils 78.1 % (42.0-75.0); Mean Corpuscular HGB CONC 32.1 g/dL (32.0-36.0); Mean Corpuscular Hemoglobin 30.7 pg (27.0-31.0); Mean Corpuscular Volume 95.7 fL (78.0-98.0); Mean Platelet Volume 8.7 fL (7.4-10.4); Platelet Count 146 thou/uL (130-400); RBC Distribution Width 15.6 % (11.5-14.5); Red Blood Cell (RBC) Count 3.92 mill/uL (4.70-6.10); White Blood Cell (WBC) Count 11.3 thou/uL (4.8-10.8)
[2021-11-22 05:44] LABS: Anion Gap 12 mmol/L (10-20); BUN (Urea Nitrogen) 17 mg/dL (8.4-25.7); Calc. Creatinine Clearance 72 mL/min (70-130); Calcium 9.3 mg/dL (7.8-10.44); Carbon Dioxide 24 mmol/L (23-31); Cardiac Risk 4.1 (Less than 4.5); Chloride 106 mmol/L (98-107); Cholesterol 107 mg/dl (< 200 Desired); Estimated GFR 72; Glucose 172 mg/dL (83-110); HDL Cholesterol 26 mg/dL (>60 Neg Risk); LDL Cholesterol, Calculated 41 mg/dL; Potassium 3.6 mmol/L (3.5-5.1); Sodium 138 mmol/L (136-145); Triglycerides 199 mg/dL (Less than 150)
[2021-11-22 06:03] LABS: Free T4 (Free Thyroxine) 1.18 ng/dL (0.70-1.48); T4 7.3 ug/dL (4.87-11.72)
[2021-11-22] MEDS ORDERED: Mometasone 100 MCG/Formoterol 5 MCG 120 PUFF INHALER INH SCH (06:30)
[2021-11-22] MEDS: Ipratropium Bromide 2.5 ml Neb NEB SCH ×2 (07:24→11:07)
[2021-11-22] MEDS ORDERED: Carvedilol 6.25 MG TAB PO SCH (08:00)
[2021-11-22] MEDS ORDERED: Empagliflozin 10 MG TAB PO SCH (09:00)
[2021-11-22] MEDS ORDERED: Aspirin 325 mg Enteric Coated Tablet PO SCH ×2 (09:00→09:26)
[2021-11-22] MEDS ORDERED: Montelukast Sodium 10 mg Tablet PO SCH (09:00)
[2021-11-22] MEDS ORDERED: Tamsulosin HCl 0.4 MG CAP PO SCH (09:00)
[2021-11-22] MEDS ORDERED: Bumetanide 1 MG TAB PO SCH (09:00)
[2021-11-22] MEDS ORDERED: Clopidogrel Bisulfate 300 MG TAB PO ONE (09:25)
[2021-11-22] MEDS ORDERED: Aspirin 81 mg Enteric Coated Tablet PO SCH (10:00)
[2021-11-22] MEDS ORDERED: Clopidogrel Bisulfate 75 MG TAB PO SCH (10:00)
[2021-11-22] MEDS ORDERED: Nicotine 7 MG PATCH TOP SCH (12:00)
[2021-11-22 12:21] VITALS: BP 129/77; TEMP 97.8
[2021-11-22] MEDS ORDERED: Cephalexin 250 MG CAP PO SCH (18:00)
[2021-11-23] MEDS ORDERED: Aspirin 81 mg Enteric Coated Tablet PO SCH (09:00)
[2021-11-23] MEDS ORDERED: Clopidogrel Bisulfate 75 MG TAB PO SCH (09:00)
== END 2021-11-22 16:46 | disposition left against medical advice (07) ==
LOC: ERS 12:11 → ERHOLD 14:47 → NEURO 18:37
PROVIDERS: ADMIT Physician Assistant; ATTEND Physician Assistant
DX: G45.9 Transient cerebral ischemic attack, unspecified (principal); I11.0 Hypertensive heart disease with heart failure; I50.20 Unspecified systolic (congestive) heart failure; J44.9 Chronic obstructive pulmonary disease, unspecified; J96.11 Chronic respiratory failure with hypoxia; E11.9 Type 2 diabetes mellitus without complications; E78.5 Hyperlipidemia, unspecified; G47.33 Obstructive sleep apnea (adult) (pediatric); F17.210 Nicotine dependence, cigarettes, uncomplicated; D17.0 Benign lipomatous neoplasm of skin and subcutaneous tissue of head, face and neck; N39.0 Urinary tract infection, site not specified; I25.10 Atherosclerotic heart disease of native coronary artery without angina pectoris; I25.2 Old myocardial infarction; Z53.29 Procedure and treatment not carried out because of patient's decision for other reasons; Z79.2 Long term (current) use of antibiotics; Z79.82 Long term (current) use of aspirin; Z79.84 Long term (current) use of oral hypoglycemic drugs; Z79.899 Other long term (current) drug therapy; Z88.5 Allergy status to narcotic agent; Z95.5 Presence of coronary angioplasty implant and graft; Z95.810 Presence of automatic (implantable) cardiac defibrillator; Z99.81 Dependence on supplemental oxygen; Z20.822 Contact with and (suspected) exposure to COVID-19
CPT/HCPCS: 70450; 71045; 80048; 80061; 80306; 80307; 82550; 82962; 83690; 83880; 84481; 84484 ×2; 85025; 93005; 93880; 94640 ×4; 94660; U0003; U0005; 36415; 36416; 80053; 81003; 81015; 84436; 84439; 84443; 96372; G0378; J1650

== ENCOUNTER 2022-05-01 17:43 | Inpatient (IN) | payer MEDICARE ==
[2022-05-01] MEDS ORDERED: Amiodarone 150 MG/3 ML VIAL ONE (17:53)
[2022-05-01] MEDS ORDERED: Magnesium 2 GM/50 ML BAG (IN WATER) ONE (17:59)
[2022-05-01 18:10] LABS: #Basophils 0.1 thou/uL (0.0-0.2); #Eosinphils 0.4 thou/uL (0.0-0.7); #Lymphocytes 2.5 thou/uL (1.20-3.40); #Monocytes 0.7 thou/uL (0.11-0.59); #Neutrophils 6.8 thou/uL (1.40-6.50); %Basophils 0.6 % (0.0-1.0); %Eosinophils 3.8 % (0.0-10.0); %Lymphocytes 24.1 % (21.0-51.0); %Monocytes 6.6 % (0.0-10.0); %Neutrophils 64.9 % (42.0-75.0); Hemoglobin 14.3 g/dL (14.0-18.0); Mean Corpuscular HGB CONC 32.7 g/dL (32.0-36.0); Mean Corpuscular Volume 94.9 fl (78.0-98.0); Mean Platelet Volume 8.7 fL (7.4-10.4); Platelet Count 194 10x3/uL (130-400); RBC Distribution Width 14.7 % (11.5-14.5); White Blood Cell (WBC) Count 10.5 10x3/uL (4.8-10.8)
[2022-05-01 18:37] LABS: ALT (SGPT) 12 U/L (8-55); AST (SGOT) 17 U/L (5-34); Albumin 4.2 g/dL (3.4-4.8); Alkaline Phosphatase 75 U/L (40-110); Anion Gap 16 mmol/L (10-20); BUN (Urea Nitrogen) 17 mg/dL (8.4-25.7); Bilirubin, Total 0.5 mg/dL (0.2-1.2); Calc. Creatinine Clearance 0 mL/min (70-130); Calcium 9.9 mg/dL (7.8-10.44); Carbon Dioxide 25 mmol/L (23-31); Chloride 102 mmol/L (98-107); Estimated GFR 54; Globulin 2.7 g/dL (2.4-3.5); Glucose 140 mg/dL (83-110); Lipase 34 U/L (8-78); Potassium 3.6 mmol/L (3.5-5.1); Protein, Total 6.9 g/dL (5.8-8.1); Sodium 139 mmol/L (136-145)
[2022-05-01 18:51] LABS: CKMB 2.9 ng/mL (0-6.6)
[2022-05-01] MEDS ORDERED: Ondansetron ODT 4 MG TAB PO PRN (19:47)
[2022-05-01] MEDS ORDERED: Ondansetron PF 4 MG/2 ML Vial IVP PRN (19:47)
[2022-05-01] MEDS ORDERED: Acetaminophen 325 MG TAB PO PRN (19:47)
[2022-05-01] MEDS ORDERED: Acetaminophen 650 MG Suppository PR PRN (19:47)
[2022-05-01] MEDS ORDERED: Ipratropium/Albuterol 3 ML NEB NEB PRN (19:49)
[2022-05-01 19:57] LABS: SARS-CoV-2 NAA Rapid Test Not Detected (NotDetected)
[2022-05-01] MEDS ORDERED: methylPREDNISolone Sod Succ 40 MG VIAL IVP SCH (20:00)
[2022-05-01] MEDS ORDERED: Electrolyte Replacement Protocol 1 EACH FS SCH (20:45)
[2022-05-01] MEDS ORDERED: Potassium Chloride 20 MEQ TAB PO SCH (21:00)
[2022-05-01] MEDS: Ipratropium/Albuterol 3 ML NEB NEB SCH (21:39)
[2022-05-01 21:40] LABS: Magnesium 1.6 mg/dL (1.6-2.6)
[2022-05-01 22:14] VITALS: BMI 27.6
[2022-05-01] MEDS ORDERED: Bumetanide 1 MG TAB PO SCH (23:30)
[2022-05-01] MEDS ORDERED: Empagliflozin 10 MG TAB PO SCH (23:30)
[2022-05-01] MEDS ORDERED: Rosuvastatin 10 MG TAB PO SCH (23:30)
[2022-05-01] MEDS ORDERED: Carvedilol 6.25 MG TAB PO SCH (23:30)
[2022-05-01] MEDS ORDERED: Gabapentin 300 MG CAP PO SCH (23:30)
[2022-05-01] MEDS ORDERED: Sacubitril 49 MG/Valsartan 51 MG TABLET PO SCH (23:30)
[2022-05-01] MEDS ORDERED: Amitriptyline HCl 10 MG TAB PO SCH (23:30)
[2022-05-01] MEDS: Amiodarone 450 MG, Admixture Fee 1 EACH in Dextrose 5% in Water 250 ML IVPB SCH (23:41)
[2022-05-01] MEDS: Nicotine 21 MG PATCH TD SCH (23:45)
[2022-05-01] MEDS ORDERED: hydrALAZINE 25 MG TAB PO SCH (23:45)
[2022-05-01] MEDS: ALPRAZolam 0.25 MG TAB PO PRN (23:47)
[2022-05-02] MEDS: Ipratropium/Albuterol 3 ML NEB NEB SCH ×6 (01:31→22:12)
[2022-05-02] MEDS: Gabapentin 300 MG CAP PO SCH ×3 (06:25→21:43)
[2022-05-02 06:44] LABS: #Lymphocytes 0.7 thou/uL (1.20-3.40); #Monocytes 0.1 thou/uL (0.11-0.59); #Neutrophils 4.9 thou/uL (1.40-6.50); %Basophils 0.8 % (0.0-1.0); %Eosinophils 0.4 % (0.0-10.0); %Lymphocytes 11.9 % (21.0-51.0); %Monocytes 1.5 % (0.0-10.0); %Neutrophils 85.4 % (42.0-75.0); Hemoglobin 12.6 g/dL (14.0-18.0); Mean Corpuscular HGB CONC 32.2 g/dL (32.0-36.0); Mean Corpuscular Hemoglobin 31.2 pg (27.0-31.0); Mean Corpuscular Volume 96.9 fl (78.0-98.0); Mean Platelet Volume 8.5 fL (7.4-10.4); Platelet Count 180 10x3/uL (130-400); RBC Distribution Width 14.6 % (11.5-14.5); Red Blood Cell (RBC) Count 4.03 mill/uL (4.70-6.10); White Blood Cell (WBC) Count 5.8 10x3/uL (4.8-10.8)
[2022-05-02 07:03] LABS: Anion Gap 12 mmol/L (10-20); BUN (Urea Nitrogen) 20 mg/dL (8.4-25.7); Calc. Creatinine Clearance 55 mL/min (70-130); Calcium 9.3 mg/dL (7.8-10.44); Carbon Dioxide 24 mmol/L (23-31); Chloride 103 mmol/L (98-107); Estimated GFR 56; Glucose 201 mg/dL (83-110); Potassium 4.5 mmol/L (3.5-5.1); Sodium 134 mmol/L (136-145)
[2022-05-02] MEDS: Mometasone 100 MCG/Formoterol 5 MCG 120 PUFF INHALER INH SCH ×2 (07:22→19:14)
[2022-05-02] MEDS: Carvedilol 6.25 MG TAB PO SCH ×2 (08:36→18:23)
[2022-05-02] MEDS: Amiodarone 200 MG TAB PO SCH ×2 (08:36→21:44)
[2022-05-02] MEDS: Aripiprazole 10 MG TAB PO SCH (08:37)
[2022-05-02] MEDS: Aspirin Chewable 81 MG TAB PO SCH (08:37)
[2022-05-02] MEDS: Empagliflozin 10 MG TAB PO SCH ×2 (08:38→21:43)
[2022-05-02] MEDS: Bumetanide 1 MG TAB PO SCH ×2 (08:38→21:42)
[2022-05-02] MEDS: hydrALAZINE 25 MG TAB PO SCH ×3 (08:38→21:43)
[2022-05-02] MEDS: Clopidogrel Bisulfate 75 MG TAB PO SCH (08:38)
[2022-05-02] MEDS: methylPREDNISolone Sod Succ 40 MG VIAL IVP SCH (08:38)
[2022-05-02] MEDS: Dutasteride 0.5 MG CAP PO SCH (08:38)
[2022-05-02] MEDS: Sacubitril 49 MG/Valsartan 51 MG TABLET PO SCH ×2 (08:39→21:42)
[2022-05-02] MEDS: Sertraline 100 MG TAB PO SCH (08:40)
[2022-05-02] MEDS ORDERED: Iopamidol 370 76% 100 ML VIAL ONE (10:18)
[2022-05-02] MEDS ORDERED: Communication Order-Pharmacy FS SCH ×2 (12:00)
[2022-05-02 12:03] LABS: ALT (SGPT) 11 U/L (8-55); AST (SGOT) 13 U/L (5-34); Albumin 4.1 g/dL (3.4-4.8); Alkaline Phosphatase 69 U/L (40-110); Anion Gap 13 mmol/L (10-20); BUN (Urea Nitrogen) 20 mg/dL (8.4-25.7); Bilirubin, Direct 0.2 mg/dL (0.1-0.3); Bilirubin, Total 0.5 mg/dL (0.2-1.2); Calc. Creatinine Clearance 59 mL/min (70-130); Calcium 9.7 mg/dL (7.8-10.44); Carbon Dioxide 25 mmol/L (23-31); Cardiac Risk 3.5 (Less than 4.5); Chloride 102 mmol/L (98-107); Cholesterol 148 mg/dl (< 200 Desired); Estimated GFR 61; Glucose 162 mg/dL (83-110); HDL Cholesterol 42 mg/dL (>60 Neg Risk); LDL Cholesterol, Calculated 85 mg/dL; Potassium 4.2 mmol/L (3.5-5.1); Protein, Total 6.8 g/dL (5.8-8.1); Sodium 136 mmol/L (136-145); Triglycerides 104 mg/dL (Less than 150)
[2022-05-02 12:17] LABS: T4 6.2 ug/dL (4.87-11.72); Thyroid Stimulating Hormone 1.8878 uIU/mL (0.35-4.94)
[2022-05-02] MEDS ORDERED: Heparin 10,000 UNITS/ 10 ML VIAL ONE (12:39)
[2022-05-02] MEDS ORDERED: Lidocaine 1% (PF) 30 ML VIAL ONE (12:39)
[2022-05-02] MEDS ORDERED: FENTANYL 50 MCG/ML 1 ML VIAL ONE (13:20)
[2022-05-02] MEDS ORDERED: Midazolam HCl 2 mg/2 ml Vial ONE (13:21)
[2022-05-02] MEDS ORDERED: Amitriptyline HCl 10 MG TAB PO SCH (21:00)
[2022-05-02] MEDS ORDERED: Rosuvastatin 10 MG TAB PO SCH (21:00)
[2022-05-02] MEDS: ALPRAZolam 0.25 MG TAB PO PRN (21:43)
[2022-05-02] MEDS: Nicotine 21 MG PATCH TD SCH (21:44)
[2022-05-03] MEDS: Ipratropium/Albuterol 3 ML NEB NEB SCH ×4 (01:45→14:24)
[2022-05-03] MEDS: Amiodarone 450 MG, Admixture Fee 1 EACH in Dextrose 5% in Water 250 ML IVPB SCH (01:59)
[2022-05-03] MEDS: Mometasone 100 MCG/Formoterol 5 MCG 120 PUFF INHALER INH SCH (06:21)
[2022-05-03] MEDS: Gabapentin 300 MG CAP PO SCH ×2 (06:30→13:59)
[2022-05-03] MEDS: Carvedilol 6.25 MG TAB PO SCH (10:18)
[2022-05-03] MEDS: Bumetanide 1 MG TAB PO SCH (10:19)
[2022-05-03] MEDS: Aripiprazole 10 MG TAB PO SCH (10:19)
[2022-05-03] MEDS: Aspirin Chewable 81 MG TAB PO SCH (10:19)
[2022-05-03] MEDS: Amiodarone 200 MG TAB PO SCH (10:19)
[2022-05-03] MEDS: Clopidogrel Bisulfate 75 MG TAB PO SCH (10:19)
[2022-05-03] MEDS: Sacubitril 49 MG/Valsartan 51 MG TABLET PO SCH (10:20)
[2022-05-03] MEDS: Empagliflozin 10 MG TAB PO SCH (10:20)
[2022-05-03] MEDS: Dutasteride 0.5 MG CAP PO SCH (10:20)
[2022-05-03] MEDS: Sertraline 100 MG TAB PO SCH (10:20)
[2022-05-03] MEDS: hydrALAZINE 25 MG TAB PO SCH ×2 (10:20→14:00)
[2022-05-03] MEDS: methylPREDNISolone Sod Succ 40 MG VIAL IVP SCH (10:20)
[2022-05-03 11:09] VITALS: TEMP 97.1
== END 2022-05-03 16:01 | disposition short-term general hospital (02) | DRG 287 ==
LOC: ERS 17:43 → IMCU/EMU 19:34
PROVIDERS: ADMIT Student in an Organized Health Care Education/Training Program; ATTEND Internal Medicine
PROC: 4A023N7 Measurement of Cardiac Sampling and Pressure, Left Heart, Percutaneous Approach (ICD-10-PCS; principal; 2022-05-02)
PROC: B2111ZZ Fluoroscopy of Multiple Coronary Arteries using Low Osmolar Contrast (ICD-10-PCS; 2022-05-02)
PROC: B2151ZZ Fluoroscopy of Left Heart using Low Osmolar Contrast (ICD-10-PCS; 2022-05-02)
DX: I47.20 Ventricular tachycardia, unspecified (principal); I13.0 Hypertensive heart and chronic kidney disease with heart failure and stage 1 through stage 4 chronic kidney disease, or unspecified chronic kidney disease; I50.22 Chronic systolic (congestive) heart failure; J44.1 Chronic obstructive pulmonary disease with (acute) exacerbation; I42.8 Other cardiomyopathies; I42.0 Dilated cardiomyopathy; Z20.822 Contact with and (suspected) exposure to COVID-19; E78.5 Hyperlipidemia, unspecified; Z96.642 Presence of left artificial hip joint; Z66 Do not resuscitate; Z96.652 Presence of left artificial knee joint; I25.10 Atherosclerotic heart disease of native coronary artery without angina pectoris; N18.2 Chronic kidney disease, stage 2 (mild); R79.89 Other specified abnormal findings of blood chemistry; I08.1 Rheumatic disorders of both mitral and tricuspid valves; F17.210 Nicotine dependence, cigarettes, uncomplicated; G47.30 Sleep apnea, unspecified; Z99.89 Dependence on other enabling machines and devices; Z95.0 Presence of cardiac pacemaker; Z88.6 Allergy status to analgesic agent; Z79.82 Long term (current) use of aspirin; Z79.899 Other long term (current) drug therapy; Z79.84 Long term (current) use of oral hypoglycemic drugs; Z79.02 Long term (current) use of antithrombotics/antiplatelets; Z71.6 Tobacco abuse counseling
CPT/HCPCS: 36415; 36416; 71045; 80048; 80053; 80061; 80076; 82553; 83690; 83735; 83880; 84436; 84443; 84479; 84484; 85025; 93005; 93458; 94640; 96365; 96366; 96367; 96376; 99152; C1769; J0282; J1644; J2001; J2250; J2920; J3010; J3475; J7070; J7620; Q9967

== ENCOUNTER 2022-10-03 07:07 | Day surgery (SDC) | payer MEDICARE ==
[2022-10-02 14:16] VITALS: BMI 24.2
[2022-10-03] MEDS ORDERED: Lidocaine 1% (PF) 30 ML VIAL ONE (07:48)
[2022-10-03] MEDS ORDERED: Lidocaine 1% MPF 2 ML VIAL ONE (07:49)
[2022-10-03 08:02] LABS: #Basophils 0.1 thou/uL (0.0-0.2); #Eosinphils 0.4 thou/uL (0.0-0.7); #Monocytes 0.7 thou/uL (0.11-0.59); #Neutrophils 5.9 thou/uL (1.40-6.50); %Basophils 0.8 % (0.0-1.0); %Lymphocytes 17.9 % (21.0-51.0); %Monocytes 8.3 % (0.0-10.0); %Neutrophils 68.1 % (42.0-75.0); Hemoglobin 12.1 g/dL (14.0-18.0); Mean Corpuscular HGB CONC 33.2 g/dL (32.0-36.0); Mean Corpuscular Hemoglobin 32.4 pg (27.0-31.0); Mean Corpuscular Volume 97.3 fl (78.0-98.0); Mean Platelet Volume 10.7 fL (7.4-10.4); Platelet Count 169 10x3/uL (130-400); RBC Distribution Width 16.1 % (11.5-14.5); Red Blood Cell (RBC) Count 3.74 mill/uL (4.70-6.10); White Blood Cell (WBC) Count 8.7 10x3/uL (4.8-10.8)
[2022-10-03 08:25] LABS: ALT (SGPT) 14 U/L (8-55); AST (SGOT) 15 U/L (5-34); Albumin 3.6 g/dL (3.4-4.8); Alkaline Phosphatase 65 U/L (40-110); Anion Gap 13 mmol/L (10-20); BUN (Urea Nitrogen) 23 mg/dL (8.4-25.7); Bilirubin, Direct 0.2 mg/dL (0.1-0.3); Bilirubin, Total 0.3 mg/dL (0.2-1.2); Calc. Creatinine Clearance 54 mL/min (70-130); Calcium 9.2 mg/dL (7.8-10.44); Carbon Dioxide 25 mmol/L (23-31); Chloride 103 mmol/L (98-107); Estimated GFR 66; Globulin 2.5 g/dL (2.4-3.5); Glucose 113 mg/dL (83-110); Protein, Total 6.1 g/dL (5.8-8.1); Sodium 137 mmol/L (136-145)
[2022-10-03] MEDS ORDERED: cefOXitin 2 GM VIAL ONE (08:50)
[2022-10-03] MEDS ORDERED: Sodium Chloride 0.9% 100 ML ONE (08:51)
[2022-10-03] MEDS ORDERED: Bupivacaine 0.25% HCL 30 ML VIAL ONE (09:08)
[2022-10-03] MEDS ORDERED: EPINEPHrine 1 MG/ML AMP ONE (09:08)
[2022-10-03] MEDS ORDERED: fentaNYL PF 100 MCG/2 ML SYRINGE ONE (09:12)
[2022-10-03] MEDS ORDERED: Dexamethasone 20 MG/5 ML VIAL ONE (09:26)
[2022-10-03] MEDS ORDERED: Ondansetron PF 4 MG/2 ML Vial ONE (09:26)
[2022-10-03] MEDS ORDERED: Rocuronium Bromide 10 MG/ML (10ML VIAL) ONE (09:26)
[2022-10-03] MEDS ORDERED: Albuterol HFA (OR) 200 PUFF INH ONE (09:26)
[2022-10-03] MEDS ORDERED: PHENYLEPHRINE-NS 100 MCG/ML 10 ML SYRINGE ONE (09:26)
[2022-10-03] MEDS ORDERED: PROPOFOL 200 MG/20 ML VIAL ONE (09:26)
[2022-10-03] MEDS ORDERED: Lidocaine 1% PF 5 ML VIAL ONE (09:26)
[2022-10-03] MEDS ORDERED: fentaNYL 50 mcg/mL 1 mL Vial ONE ×2 (10:35→11:13)
[2022-10-03] MEDS ORDERED: Ketorolac Tromethamine 30 MG/ML VIAL ONE (11:00)
[2022-10-03] MEDS ORDERED: HYDROmorphone 0.5 MG/0.5 ML SYRINGE ONE ×2 (11:30→11:53)
== END 2022-10-03 14:30 | disposition home or self-care (01) ==
LOC: SDC 07:07
PROVIDERS: ATTEND Surgery
PROC: 0FT44ZZ Resection of Gallbladder, Percutaneous Endoscopic Approach (ICD-10-PCS; principal; 2022-10-03)
DX: K80.10 Calculus of gallbladder with chronic cholecystitis without obstruction (principal); Z96.652 Presence of left artificial knee joint; Z96.611 Presence of right artificial shoulder joint; Z96.641 Presence of right artificial hip joint; Z95.0 Presence of cardiac pacemaker; F17.210 Nicotine dependence, cigarettes, uncomplicated; Z88.5 Allergy status to narcotic agent; Z88.2 Allergy status to sulfonamides
CPT/HCPCS: 47562; 80053; 80076; 85025; 93005; C1889; J3010; 88304; 93010; J0171; J0694; J1100; J1170; J1885; J2001; J2405; J2704; J3490; S0020

== ENCOUNTER 2022-10-11 11:47 | Inpatient (IN) | payer MEDICARE ==
[2022-10-11 12:38] LABS: #Basophils 0.1 thou/uL (0.0-0.2); #Eosinphils 0.4 thou/uL (0.0-0.7); #Monocytes 0.6 thou/uL (0.11-0.59); #Neutrophils 5.6 thou/uL (1.40-6.50); %Basophils 0.6 % (0.0-1.0); %Eosinophils 5.2 % (0.0-10.0); %Lymphocytes 15.7 % (21.0-51.0); %Neutrophils 69.6 % (42.0-75.0); Hemoglobin 11.6 g/dL (14.0-18.0); Mean Corpuscular HGB CONC 33.4 g/dL (32.0-36.0); Mean Corpuscular Hemoglobin 31.3 pg (27.0-31.0); Mean Corpuscular Volume 93.5 fl (78.0-98.0); Mean Platelet Volume 9.9 fL (7.4-10.4); Platelet Count 192 10x3/uL (130-400); RBC Distribution Width 15.2 % (11.5-14.5); Red Blood Cell (RBC) Count 3.71 mill/uL (4.70-6.10)
[2022-10-11] MEDS ORDERED: Dexamethasone 4 mg/ml Vial ONE (12:44)
[2022-10-11] MEDS ORDERED: Ipratropium/Albuterol 3 ML NEB ONE (12:48)
[2022-10-11 13:03] LABS: ALT (SGPT) 31 U/L (8-55); AST (SGOT) 32 U/L (5-34); Albumin 3.6 g/dL (3.4-4.8); Alkaline Phosphatase 82 U/L (40-110); Anion Gap 15 mmol/L (10-20); BUN (Urea Nitrogen) 12 mg/dL (8.4-25.7); Bilirubin, Total 0.4 mg/dL (0.2-1.2); Calc. Creatinine Clearance 0 mL/min (70-130); Calcium 9.3 mg/dL (7.8-10.44); Carbon Dioxide 25 mmol/L (23-31); Chloride 99 mmol/L (98-107); Estimated GFR 71; Globulin 2.5 g/dL (2.4-3.5); Glucose 129 mg/dL (83-110); Lipase 12 U/L (8-78); Potassium 3.5 mmol/L (3.5-5.1); Protein, Total 6.1 g/dL (5.8-8.1); Sodium 135 mmol/L (136-145)
[2022-10-11 13:26] LABS: CKMB 2.2 ng/mL (0-6.6)
[2022-10-11 13:40] LABS: Bacteria/HPF 2+ HPF (None Seen); Bilirubin Negative (Negative); Blood, Urine Negative (Negative); CAUTI Indications for Culture Dysuria,urgency,freq; Clarity Turbid (Clear); Glucose, Urine (Dipstick) Normal (Negative); Ketone, Urine Negative (Negative); Leukocyte 500 Leu/uL (Negative); Nitrite Negative (Negative); Protein, Urine (Dipstick) Negative (Neg-Trace); RBC/HPF 0-3 HPF (0-3); Specific Gravity, Urine 1.008 (1.002-1.036); Squamous Epithelial None Seen HPF (0-3); Urobilinogen Normal mg/dL (Less than 2); WBC/HPF Greater than 50 HPF (0-3)
[2022-10-11 13:42] LABS: Urine Culture Reflex Yes Yes
[2022-10-11] MEDS ORDERED: Aspirin Chewable 81 MG TAB ONE (14:23)
[2022-10-11] MEDS ORDERED: Furosemide 40 MG/4 ML VIAL ONE (14:23)
[2022-10-11] MEDS ORDERED: cefTRIAXone (ROCEPHIN) 2 GM VIAL ONE (14:25)
[2022-10-11] MEDS ORDERED: Bisacodyl 10 MG SUPP PR PRN ×2 (15:07→20:02)
[2022-10-11] MEDS ORDERED: Ondansetron PF 4 MG/2 ML Vial IVP PRN ×2 (15:07→20:01)
[2022-10-11] MEDS ORDERED: Acetaminophen 325 MG TAB PO PRN ×2 (15:07→20:01)
[2022-10-11] MEDS ORDERED: Guaifenesin DM 100-10/5 ML UDCUP PO PRN ×2 (15:07→20:02)
[2022-10-11] MEDS ORDERED: Senokot S 8.6-50 MG TAB PO PRN ×2 (15:07→20:02)
[2022-10-11] MEDS ORDERED: Calcium Carbonate 500 MG ChewTAB PO PRN ×2 (15:07→20:02)
[2022-10-11] MEDS ORDERED: ALPRAZolam 0.25 MG TAB PO PRN (15:13)
[2022-10-11] MEDS ORDERED: Dextrose 5% in Water 1,000 ML IV PRN ×2 (16:09→20:05)
[2022-10-11] MEDS ORDERED: HumaLOG 300 UNITS/3 ML VIAL SC PRN ×3 (16:09→21:50)
[2022-10-11] MEDS ORDERED: Dextrose 50% Abboject 50 ML SYRINGE SLOW IVP PRN ×2 (16:09→20:05)
[2022-10-11] MEDS ORDERED: Glucagon 1 MG/ML KIT IM PRN ×2 (16:09→20:05)
[2022-10-11 17:03] LABS: Troponin I 0.018 ng/mL (< 0.028)
[2022-10-11 17:13] VITALS: BMI 26.6
[2022-10-11 17:43] LABS: Lactic Acid 3.6 mmol/L (0.5-2.2)
[2022-10-11] MEDS ORDERED: Mometasone 100 MCG/Formoterol 5 MCG 120 PUFF INHALER INH SCH (18:30)
[2022-10-11] MEDS ORDERED: Sacubitril 49 MG/Valsartan 51 MG TABLET PO SCH (21:00)
[2022-10-11] MEDS ORDERED: Rosuvastatin 10 MG TAB PO SCH (21:00)
[2022-10-11] MEDS ORDERED: Ipratropium/Albuterol 3 ML NEB NEB SCH (21:00)
[2022-10-11] MEDS ORDERED: metFORMIN 500 MG TAB PO SCH ×2 (21:00)
[2022-10-11] MEDS ORDERED: Dutasteride 0.5 MG CAP PO SCH (21:00)
[2022-10-11] MEDS ORDERED: Empagliflozin 10 MG TAB PO SCH (21:00)
[2022-10-11] MEDS ORDERED: Carvedilol 3.125 MG TAB PO SCH (21:00)
[2022-10-11] MEDS ORDERED: hydrALAZINE 25 MG TAB PO SCH (21:00)
[2022-10-11] MEDS: Carvedilol 3.125 MG TAB PO SCH (21:36)
[2022-10-11] MEDS: ALPRAZolam 0.25 MG TAB PO PRN (21:37)
[2022-10-11] MEDS: hydrALAZINE 25 MG TAB PO SCH (21:37)
[2022-10-11] MEDS: Sacubitril 49 MG/Valsartan 51 MG TABLET PO SCH (21:37)
[2022-10-11] MEDS: Dutasteride 0.5 MG CAP PO SCH (21:39)
[2022-10-11] MEDS: Rosuvastatin 10 MG TAB PO SCH (21:39)
[2022-10-11] MEDS: Empagliflozin 10 MG TAB PO SCH (21:39)
[2022-10-11] MEDS: Gabapentin 300 MG CAP PO SCH (21:40)
[2022-10-11] MEDS ORDERED: Gabapentin 300 MG CAP PO SCH (22:00)
[2022-10-12] MEDS: Furosemide 40 MG/4 ML VIAL SLOW IVP SCH ×2 (05:35→14:07)
[2022-10-12] MEDS: Ipratropium/Albuterol 3 ML NEB NEB SCH ×3 (05:36→18:52)
[2022-10-12] MEDS: Gabapentin 300 MG CAP PO SCH ×3 (05:36→20:54)
[2022-10-12] MEDS ORDERED: Furosemide 40 MG/4 ML VIAL SLOW IVP SCH (06:00)
[2022-10-12] MEDS: Mometasone 100 MCG/Formoterol 5 MCG 120 PUFF INHALER INH SCH ×3 (06:27→18:52)
[2022-10-12 08:44] LABS: #Monocytes 0.6 thou/uL (0.11-0.59); #Neutrophils 11.3 thou/uL (1.40-6.50); %Basophils 0.2 % (0.0-1.0); %Lymphocytes 8.2 % (21.0-51.0); %Monocytes 4.6 % (0.0-10.0); %Neutrophils 86.1 % (42.0-75.0); Hemoglobin 12.7 g/dL (14.0-18.0); Mean Corpuscular HGB CONC 32.7 g/dL (32.0-36.0); Mean Corpuscular Hemoglobin 31.7 pg (27.0-31.0); Mean Platelet Volume 9.9 fL (7.4-10.4); Platelet Count 234 10x3/uL (130-400); RBC Distribution Width 15.5 % (11.5-14.5); Red Blood Cell (RBC) Count 4.01 mill/uL (4.70-6.10); White Blood Cell (WBC) Count 13.1 10x3/uL (4.8-10.8)
[2022-10-12 08:47] LABS: Mean Corpuscular Volume 96.8 fl (78.0-98.0)
[2022-10-12] MEDS ORDERED: Tamsulosin HCl 0.4 MG CAP PO SCH (09:00)
[2022-10-12] MEDS ORDERED: Sertraline 100 MG TAB PO SCH (09:00)
[2022-10-12] MEDS ORDERED: Clopidogrel Bisulfate 75 MG TAB PO SCH (09:00)
[2022-10-12] MEDS ORDERED: Montelukast Sodium 10 mg Tablet PO SCH (09:00)
[2022-10-12] MEDS ORDERED: Amiodarone 200 MG TAB PO SCH (09:00)
[2022-10-12] MEDS ORDERED: Aspirin Chewable 81 MG TAB PO SCH (09:00)
[2022-10-12 09:03] LABS: Anion Gap 19 mmol/L (10-20); BUN (Urea Nitrogen) 14 mg/dL (8.4-25.7); Calc. Creatinine Clearance 52 mL/min (70-130); Calcium 9.7 mg/dL (7.8-10.44); Carbon Dioxide 26 mmol/L (23-31); Chloride 97 mmol/L (98-107); Estimated GFR 55; Glucose 163 mg/dL (83-110); Potassium 3.7 mmol/L (3.5-5.1); Sodium 138 mmol/L (136-145)
[2022-10-12] MEDS: Sacubitril 49 MG/Valsartan 51 MG TABLET PO SCH ×2 (09:11→20:53)
[2022-10-12] MEDS: hydrALAZINE 25 MG TAB PO SCH ×3 (09:11→20:53)
[2022-10-12] MEDS: Tamsulosin HCl 0.4 MG CAP PO SCH (09:12)
[2022-10-12] MEDS: Sertraline 100 MG TAB PO SCH (09:12)
[2022-10-12] MEDS: Aspirin Chewable 81 MG TAB PO SCH (09:12)
[2022-10-12] MEDS: Carvedilol 3.125 MG TAB PO SCH ×2 (09:12→20:54)
[2022-10-12] MEDS: Montelukast Sodium 10 mg Tablet PO SCH (09:12)
[2022-10-12] MEDS: Empagliflozin 10 MG TAB PO SCH ×2 (09:13→20:54)
[2022-10-12] MEDS: Amiodarone 200 MG TAB PO SCH (09:13)
[2022-10-12] MEDS: Clopidogrel Bisulfate 75 MG TAB PO SCH (09:13)
[2022-10-12] MEDS ORDERED: cefTRIAXone\\ROCEPHIN 1 GM in Sodium Chloride 0.9% 100 ML IVPB SCH ×2 (14:45→20:00)
[2022-10-12] MEDS: ALPRAZolam 0.25 MG TAB PO PRN (20:53)
[2022-10-12] MEDS: Dutasteride 0.5 MG CAP PO SCH (20:53)
[2022-10-12] MEDS: Rosuvastatin 10 MG TAB PO SCH (20:54)
[2022-10-13 04:53] LABS: #Basophils 0.1 thou/uL (0.0-0.2); #Eosinphils 0.2 thou/uL (0.0-0.7); #Monocytes 0.8 thou/uL (0.11-0.59); %Basophils 0.5 % (0.0-1.0); %Eosinophils 1.8 % (0.0-10.0); %Lymphocytes 16.3 % (21.0-51.0); %Monocytes 7.1 % (0.0-10.0); %Neutrophils 73.6 % (42.0-75.0); Hemoglobin 12.2 g/dL (14.0-18.0); Mean Corpuscular Volume 93.9 fl (78.0-98.0); Mean Platelet Volume 10.1 fL (7.4-10.4); Platelet Count 216 10x3/uL (130-400); RBC Distribution Width 15.2 % (11.5-14.5); Red Blood Cell (RBC) Count 3.94 mill/uL (4.70-6.10); White Blood Cell (WBC) Count 10.9 10x3/uL (4.8-10.8)
[2022-10-13 05:19] LABS: Anion Gap 13 mmol/L (10-20); BUN (Urea Nitrogen) 20 mg/dL (8.4-25.7); Calc. Creatinine Clearance 59 mL/min (70-130); Calcium 9.2 mg/dL (7.8-10.44); Carbon Dioxide 31 mmol/L (23-31); Chloride 101 mmol/L (98-107); Estimated GFR 64; Glucose 101 mg/dL (83-110); Potassium 3.3 mmol/L (3.5-5.1); Sodium 142 mmol/L (136-145)
[2022-10-13] MEDS: Furosemide 40 MG/4 ML VIAL SLOW IVP SCH (05:58)
[2022-10-13] MEDS: Gabapentin 300 MG CAP PO SCH (05:59)
[2022-10-13] MEDS: Ipratropium/Albuterol 3 ML NEB NEB SCH (07:22)
[2022-10-13] MEDS: Mometasone 100 MCG/Formoterol 5 MCG 120 PUFF INHALER INH SCH (07:22)
[2022-10-13] MEDS ORDERED: Spironolactone 25 MG TAB PO SCH (08:00)
[2022-10-13] MEDS ORDERED: Potassium Chloride 20 MEQ TAB PO SCH (08:00)
[2022-10-13] MEDS: Tamsulosin HCl 0.4 MG CAP PO SCH (09:26)
[2022-10-13] MEDS: Sacubitril 49 MG/Valsartan 51 MG TABLET PO SCH (09:26)
[2022-10-13] MEDS: Clopidogrel Bisulfate 75 MG TAB PO SCH (09:27)
[2022-10-13] MEDS: hydrALAZINE 25 MG TAB PO SCH (09:27)
[2022-10-13] MEDS: Montelukast Sodium 10 mg Tablet PO SCH (09:27)
[2022-10-13] MEDS: Aspirin Chewable 81 MG TAB PO SCH (09:27)
[2022-10-13] MEDS: Empagliflozin 10 MG TAB PO SCH (09:28)
[2022-10-13] MEDS: Carvedilol 3.125 MG TAB PO SCH (09:29)
[2022-10-13] MEDS: Amiodarone 200 MG TAB PO SCH (09:29)
[2022-10-13] MEDS: Sertraline 100 MG TAB PO SCH (09:29)
[2022-10-13 11:59] VITALS: BP 157/88; TEMP 98.1
== END 2022-10-13 12:53 | disposition home or self-care (01) | DRG 291 ==
LOC: ERS 11:47 → 2NO 16:48
PROVIDERS: ADMIT Internal Medicine; ATTEND Internal Medicine
DX: I11.0 Hypertensive heart disease with heart failure (principal); I50.23 Acute on chronic systolic (congestive) heart failure; N39.0 Urinary tract infection, site not specified; I42.9 Cardiomyopathy, unspecified; E11.9 Type 2 diabetes mellitus without complications; F17.210 Nicotine dependence, cigarettes, uncomplicated; Z66 Do not resuscitate; Z96.642 Presence of left artificial hip joint; Z96.652 Presence of left artificial knee joint; N40.0 Benign prostatic hyperplasia without lower urinary tract symptoms; J44.9 Chronic obstructive pulmonary disease, unspecified; I48.91 Unspecified atrial fibrillation; F32.A Depression, unspecified; Z79.84 Long term (current) use of oral hypoglycemic drugs; Z95.810 Presence of automatic (implantable) cardiac defibrillator; Z90.49 Acquired absence of other specified parts of digestive tract; Z88.5 Allergy status to narcotic agent; Z88.8 Allergy status to other drugs, medicaments and biological substances; Z98.890 Other specified postprocedural states; Z79.82 Long term (current) use of aspirin; Z82.49 Family history of ischemic heart disease and other diseases of the circulatory system; Z79.899 Other long term (current) drug therapy; Z79.51 Long term (current) use of inhaled steroids
CPT/HCPCS: 36415; 36416; 71045; 80048; 80053; 81001; 82553; 83605; 83690; 83880; 84484; 85025; 87086; 87186; 93005; 93798; 94640; 94760; 96374; 96375; J0696; J1100; J1650; J1815; J1940; J3490; J7620

== ENCOUNTER 2022-11-11 08:48 | Outpatient (CLI) | payer MEDICARE | END 2022-11-11 08:49 | disposition home or self-care (01) | LOC: ULT 08:48 | PROVIDERS: ATTEND Surgery | DX: R10.11 Right upper quadrant pain (principal) | CPT/HCPCS: 76705 ==

== ENCOUNTER 2023-05-31 07:42 | Inpatient (IN) | payer MEDICARE ==
[2023-05-31 08:09] LABS: #Eosinphils 0.1 thou/uL (0.0-0.7); #Monocytes 0.8 thou/uL (0.11-0.59); #Neutrophils 9.8 thou/uL (1.40-6.50); %Basophils 0.3 % (0.0-1.0); %Eosinophils 0.6 % (0.0-10.0); %Lymphocytes 8.8 % (21.0-51.0); %Monocytes 6.8 % (0.0-10.0); %Neutrophils 82.9 % (42.0-75.0); Hematocrit 39.3 % (42.0-52.0); Hemoglobin 12.8 g/dL (14.0-18.0); Mean Corpuscular HGB CONC 32.6 g/dL (32.0-36.0); Mean Corpuscular Hemoglobin 30.9 pg (27.0-31.0); Mean Corpuscular Volume 94.9 fl (78.0-98.0); Mean Platelet Volume 10.6 fL (7.4-10.4); Platelet Count 131 10x3/uL (130-400); RBC Distribution Width 14.7 % (11.5-14.5); Red Blood Cell (RBC) Count 4.14 mill/uL (4.70-6.10); White Blood Cell (WBC) Count 11.8 10x3/uL (4.8-10.8)
[2023-05-31] MEDS ORDERED: methylPREDNISolone Sod Succ/PF 125 MG/2 ML VIAL ONE (08:21)
[2023-05-31 08:32] LABS: Magnesium 1.6 mg/dL (1.6-2.6)
[2023-05-31 08:37] LABS: Troponin I 0.052 ng/mL (< 0.028)
[2023-05-31 08:56] LABS: Influenza A by NAA Not Detected (NotDetected); Influenza B by NAA Not Detected (NotDetected); SARS-CoV-2 NAA Rapid Test Not Detected (NotDetected)
[2023-05-31] MEDS ORDERED: cefTRIAXone (ROCEPHIN) 2 GM VIAL ONE (09:00)
[2023-05-31] MEDS ORDERED: Sodium Chloride 0.9% 100 ML ONE (09:01)
[2023-05-31] MEDS ORDERED: Iopamidol-370 76% 500 ML MDV (1 ML CHARGE) ONE (09:06)
[2023-05-31] MEDS ORDERED: Furosemide 40 MG (4 mL) VIAL ONE (09:48)
[2023-05-31 10:58] LABS: ALT (SGPT) 90 U/L (8-55); AST (SGOT) 84 U/L (5-34); Albumin 3.8 g/dL (3.4-4.8); Alkaline Phosphatase 64 U/L (40-110); Anion Gap 17 mmol/L (10-20); BUN (Urea Nitrogen) 16 mg/dL (8.4-25.7); Bilirubin, Total 0.5 mg/dL (0.2-1.2); Calc. Creatinine Clearance 0 mL/min (70-130); Calcium 9.7 mg/dL (7.8-10.44); Carbon Dioxide 21 mmol/L (23-31); Chloride 105 mmol/L (98-107); Estimated GFR 61; Globulin 2.8 g/dL (2.4-3.5); Glucose 116 mg/dL (83-110); Potassium 4.5 mmol/L (3.5-5.1); Protein, Total 6.6 g/dL (5.8-8.1); Sodium 138 mmol/L (136-145)
[2023-05-31 11:40] LABS: Critical Call Chem-Lactate NUR.LH8 @1139; Lactic Acid 5.5 mmol/L (0.5-2.2)
[2023-05-31 12:38] LABS: Troponin I 0.043 ng/mL (< 0.028)
[2023-05-31] MEDS ORDERED: Vancomycin 1 GM/200 ML (FROZEN) BAG ONE (12:59)
[2023-05-31] MEDS ORDERED: HumaLOG 300 UNITS/3 ML VIAL SC PRN (13:01)
[2023-05-31] MEDS ORDERED: Ondansetron ODT 4 MG TAB PO PRN (13:01)
[2023-05-31] MEDS ORDERED: Ondansetron PF 4 MG/2 ML Vial IVP PRN (13:01)
[2023-05-31] MEDS ORDERED: Senokot S 8.6-50 MG TAB PO PRN (13:01)
[2023-05-31] MEDS ORDERED: Dextrose 5% in Water 1,000 ML IV PRN (13:01)
[2023-05-31] MEDS ORDERED: Dextrose 50% Abboject 50 ML SYRINGE SLOW IVP PRN (13:01)
[2023-05-31] MEDS ORDERED: Acetaminophen 325 MG TAB PO PRN (13:01)
[2023-05-31] MEDS ORDERED: Acetaminophen 650 MG Suppository PR PRN (13:01)
[2023-05-31] MEDS ORDERED: Glucagon 1 MG/ML KIT IM PRN (13:01)
[2023-05-31] MEDS ORDERED: Ipratropium Bromide 2.5 ml Neb NEB PRN (13:09)
[2023-05-31] MEDS ORDERED: Electrolyte Replacement Protocol 1 EACH FS SCH (13:15)
[2023-05-31 13:48] LABS: Magnesium 1.6 mg/dL (1.6-2.6)
[2023-05-31] MEDS: Ipratropium/Albuterol 3 ML NEB NEB SCH (18:10)
[2023-05-31] MEDS: Carvedilol 6.25 MG TAB PO SCH (18:14)
[2023-05-31] MEDS: Azithromycin 500 MG in Sodium Chloride 0.9% 250 ML 250 ML IVPB SCH (18:14)
[2023-05-31] MEDS: methylPREDNISolone Sod Succ 40 MG VIAL IVP SCH (18:17)
[2023-05-31] MEDS: Furosemide 40 MG (4 mL) VIAL SLOW IVP SCH ×2 (18:17→18:18)
[2023-05-31] MEDS: Mometasone 100 MCG/Formoterol 5 MCG 120 PUFF INHALER INH SCH (18:21)
[2023-05-31 19:24] LABS: Troponin I 0.028 ng/mL (< 0.028)
[2023-05-31] MEDS: Gabapentin 300 MG CAP PO SCH (21:13)
[2023-05-31] MEDS: Sacubitril 49 MG/Valsartan 51 MG TABLET PO SCH (21:13)
[2023-05-31] MEDS: Rosuvastatin 10 MG TAB PO SCH (21:13)
[2023-05-31] MEDS: Famotidine 20 MG TAB PO SCH (21:13)
[2023-05-31] MEDS: Dutasteride 0.5 MG CAP PO SCH (21:13)
[2023-06-01] MEDS: Magnesium 2 GM/50 ML(in water) 2 GM in Premix 1 BAG IVPB SCH (00:23)
[2023-06-01 04:29] LABS: #Monocytes 0.4 thou/uL (0.11-0.59); #Neutrophils 9.2 thou/uL (1.40-6.50); %Basophils 0.2 % (0.0-1.0); %Lymphocytes 7.3 % (21.0-51.0); %Neutrophils 87.7 % (42.0-75.0); Hematocrit 36.3 % (42.0-52.0); Hemoglobin 12.1 g/dL (14.0-18.0); Mean Corpuscular HGB CONC 33.3 g/dL (32.0-36.0); Mean Corpuscular Hemoglobin 30.9 pg (27.0-31.0); Mean Corpuscular Volume 92.6 fl (78.0-98.0); Platelet Count 149 10x3/uL (130-400); RBC Distribution Width 14.6 % (11.5-14.5); Red Blood Cell (RBC) Count 3.92 mill/uL (4.70-6.10); White Blood Cell (WBC) Count 10.5 10x3/uL (4.8-10.8)
[2023-06-01 04:46] LABS: ALT (SGPT) 121 U/L (8-55); AST (SGOT) 119 U/L (5-34); Albumin 3.4 g/dL (3.4-4.8); Alkaline Phosphatase 58 U/L (40-110); Anion Gap 18 mmol/L (10-20); BUN (Urea Nitrogen) 20 mg/dL (8.4-25.7); Bilirubin, Total 0.3 mg/dL (0.2-1.2); Calc. Creatinine Clearance 48 mL/min (70-130); Carbon Dioxide 22 mmol/L (23-31); Chloride 102 mmol/L (98-107); Estimated GFR 56; Globulin 2.7 g/dL (2.4-3.5); Glucose 170 mg/dL (83-110); Protein, Total 6.1 g/dL (5.8-8.1); Sodium 138 mmol/L (136-145)
[2023-06-01] MEDS: cefTRIAXone\\ROCEPHIN 1 GM in Sodium Chloride 0.9% 100 ML IVPB SCH (10:04)
[2023-06-01] MEDS: Amiodarone 200 MG TAB PO SCH (10:05)
[2023-06-01] MEDS: Sertraline 100 MG TAB PO SCH (10:05)
[2023-06-01] MEDS: Empagliflozin 10 MG TAB PO SCH (10:06)
[2023-06-01] MEDS: Montelukast Sodium 10 mg Tablet PO SCH (10:06)
[2023-06-01] MEDS: Tamsulosin HCl 0.4 MG CAP PO SCH (10:06)
[2023-06-01] MEDS: Aspirin Chewable 81 MG TAB PO SCH (10:07)
[2023-06-01] MEDS: guaiFENesin/Codeine 200 mg/20 mg 10 ml Cup PO PRN (14:05)
[2023-06-01] MEDS: ALPRAZolam 0.25 MG TAB PO PRN (14:06)
[2023-06-01] MEDS: Enoxaparin 40 MG (0.4 mL) SYRINGE SC SCH (20:53)
[2023-06-01] MEDS: HumaLOG 300 UNITS/3 ML VIAL SC PRN (21:00)
[2023-06-02 05:08] LABS: #Monocytes 0.5 thou/uL (0.11-0.59); #Neutrophils 13.6 thou/uL (1.40-6.50); %Basophils 0.1 % (0.0-1.0); %Lymphocytes 4.2 % (21.0-51.0); %Monocytes 3.1 % (0.0-10.0); %Neutrophils 91.5 % (42.0-75.0); Hematocrit 37.8 % (42.0-52.0); Hemoglobin 12.4 g/dL (14.0-18.0); Mean Corpuscular HGB CONC 32.8 g/dL (32.0-36.0); Mean Corpuscular Hemoglobin 30.4 pg (27.0-31.0); Mean Corpuscular Volume 92.6 fl (78.0-98.0); Mean Platelet Volume 10.3 fL (7.4-10.4); Platelet Count 134 10x3/uL (130-400); RBC Distribution Width 14.5 % (11.5-14.5); Red Blood Cell (RBC) Count 4.08 mill/uL (4.70-6.10); White Blood Cell (WBC) Count 14.8 10x3/uL (4.8-10.8)
[2023-06-02 05:34] LABS: Anion Gap 13 mmol/L (10-20); BUN (Urea Nitrogen) 29 mg/dL (8.4-25.7); Calc. Creatinine Clearance 50 mL/min (70-130); Calcium 9.3 mg/dL (7.8-10.44); Carbon Dioxide 29 mmol/L (23-31); Chloride 102 mmol/L (98-107); Estimated GFR 60; Glucose 159 mg/dL (83-110); Potassium 3.7 mmol/L (3.5-5.1); Sodium 140 mmol/L (136-145)
[2023-06-02 07:56] VITALS: BMI 24.5
[2023-06-02 11:33] VITALS: BP 192/97; TEMP 98.3
== END 2023-06-02 15:49 | disposition home or self-care (01) | DRG 193 ==
LOC: ERS 07:42 → ERHOLD 11:40 → 2SW 16:40 → OBSVTOIN 06-02 14:02
PROVIDERS: ADMIT Family Medicine; ATTEND Internal Medicine
DX: J18.9 Pneumonia, unspecified organism (principal); J96.21 Acute and chronic respiratory failure with hypoxia; J44.1 Chronic obstructive pulmonary disease with (acute) exacerbation; I50.32 Chronic diastolic (congestive) heart failure; J44.0 Chronic obstructive pulmonary disease with (acute) lower respiratory infection; I11.0 Hypertensive heart disease with heart failure; I48.91 Unspecified atrial fibrillation; E11.9 Type 2 diabetes mellitus without complications; J44.9 Chronic obstructive pulmonary disease, unspecified; N40.0 Benign prostatic hyperplasia without lower urinary tract symptoms; I25.10 Atherosclerotic heart disease of native coronary artery without angina pectoris; G47.33 Obstructive sleep apnea (adult) (pediatric); Z79.82 Long term (current) use of aspirin; Z79.899 Other long term (current) drug therapy; Z79.02 Long term (current) use of antithrombotics/antiplatelets; Z79.84 Long term (current) use of oral hypoglycemic drugs; Z95.0 Presence of cardiac pacemaker; I25.2 Old myocardial infarction
CPT/HCPCS: 36415; 36416; 71045; 71275; 80048; 80053; 83605; 83735; 83880; 84484; 85025; 87040; 93005; 93306; 94640; 96365; 96366; 96367; 96372; 96375; 96376; G0378; J0456; J0696; J1650; J1815; J1940; J2920; J2930; J3370-JW; J3475; J3490; J7050; J7620; Q9967

== ENCOUNTER 2023-09-10 17:16 | Observation (INO) | payer MEDICARE ==
[~2023-09-10 17:16] MED LIST changes: -Iopamidol-370 76% 500 ML 1 ML ONE; +Iopamidol-370 76% 500 ML MDV (1 ML CHARGE) ONE
[2023-09-10 17:41] LABS: #Basophils Less than 0.03 10x3/uL (0.0-0.2); %Basophils 0.3 % (0.0-1.0); %Eosinophils 0.5 % (0.0-10.0); %Lymphocytes 6.9 % (21.0-51.0); %Monocytes 8.6 % (0.0-10.0); %Neutrophils 82.9 % (42.0-75.0); Hematocrit 34.3 % (42.0-52.0); Hemoglobin 10.9 g/dL (14.0-18.0); Mean Corpuscular HGB CONC 31.8 g/dL (32.0-36.0); Mean Corpuscular Volume 88.2 fL (78.0-98.0); Mean Platelet Volume 10.1 fL (7.4-10.4); Platelet Count 185 10x3/uL (130-400); RBC Distribution Width 15.9 % (11.5-14.5); Red Blood Cell (RBC) Count 3.89 mill/uL (4.70-6.10)
[2023-09-10] MEDS ORDERED: fentaNYL 50 mcg/mL 1 mL Vial ONE (17:41)
[2023-09-10 17:54] LABS: Prothrombin Time 13.5 sec (12.0-14.7)
[2023-09-10 17:58] LABS: Troponin I 0.044 ng/mL (< 0.028)
[2023-09-10 18:18] LABS: ALT (SGPT) 157 U/L (8-55); AST (SGOT) 127 U/L (5-34); Albumin 3.4 g/dL (3.4-4.8); Alkaline Phosphatase 68 U/L (40-110); Anion Gap 16 mmol/L (10-20); BUN (Urea Nitrogen) 18 mg/dL (8.4-25.7); Bilirubin, Total 0.4 mg/dL (0.2-1.2); Calc. Creatinine Clearance 0 mL/min (70-130); Calcium 9.2 mg/dL (7.8-10.44); Carbon Dioxide 23 mmol/L (23-31); Chloride 99 mmol/L (98-107); Estimated GFR 49; Globulin 2.7 g/dL (2.4-3.5); Glucose 167 mg/dL (83-110); Lipase 17 U/L (8-78); Magnesium 1.5 mg/dL (1.6-2.6); Potassium 4.3 mmol/L (3.5-5.1); Protein, Total 6.1 g/dL (5.8-8.1); Sodium 134 mmol/L (136-145)
[2023-09-10] MEDS ORDERED: Aspirin Chewable 81 MG TAB ONE (19:47)
[2023-09-10 20:33] LABS: Troponin I 0.035 ng/mL (< 0.028)
[2023-09-11] MEDS ORDERED: Acetaminophen 325 MG TAB PO PRN (00:57)
[2023-09-11] MEDS ORDERED: Ondansetron PF 4 MG/2 ML Vial IVP PRN (00:57)
[2023-09-11] MEDS ORDERED: Glucagon 1 MG/ML KIT IM PRN (01:05)
[2023-09-11] MEDS ORDERED: Dextrose 5% in Water 1,000 ML IV PRN (01:05)
[2023-09-11] MEDS ORDERED: HumaLOG 300 UNITS/3 ML VIAL SC PRN ×2 (01:05)
[2023-09-11] MEDS ORDERED: Dextrose 50% Abboject 50 ML SYRINGE SLOW IVP PRN (01:05)
[2023-09-11 01:07] VITALS: BMI 25.8
[2023-09-11] MEDS: Magnesium 2 GM/50 ML(in water) 2 GM in Premix 1 BAG IVPB SCH (01:31)
[2023-09-11 01:47] LABS: Troponin I 0.051 ng/mL (< 0.028)
[2023-09-11] MEDS: fentaNYL 50 mcg/mL 1 mL Vial SLOW IVP SCH (01:47)
[2023-09-11] MEDS: Ipratropium/Albuterol 3 ML NEB IPPB SCH (01:50)
[2023-09-11] MEDS ORDERED: Albuterol 2.5 MG (3 mL) NEB NEB PRN (01:52)
[2023-09-11] MEDS: Ipratropium/Albuterol 3 ML NEB NEB SCH (01:54)
[2023-09-11 03:30] LABS: Free T4 (Free Thyroxine) 0.92 ng/dL (0.70-1.48)
[2023-09-11 05:54] LABS: #Basophils 0.04 10x3/uL (0.0-0.2); %Basophils 0.6 % (0.0-1.0); %Eosinophils 0.4 % (0.0-10.0); %Lymphocytes 13.1 % (21.0-51.0); %Monocytes 11.6 % (0.0-10.0); %Neutrophils 73.6 % (42.0-75.0); Hematocrit 34.5 % (42.0-52.0); Hemoglobin 10.9 g/dL (14.0-18.0); Mean Corpuscular HGB CONC 31.6 g/dL (32.0-36.0); Mean Corpuscular Hemoglobin 27.5 pg (27.0-31.0); Mean Corpuscular Volume 86.9 fL (78.0-98.0); Platelet Count 190 10x3/uL (130-400); RBC Distribution Width 16.1 % (11.5-14.5); Red Blood Cell (RBC) Count 3.97 mill/uL (4.70-6.10)
[2023-09-11 06:04] LABS: Anion Gap 15 mmol/L (10-20); BUN (Urea Nitrogen) 19 mg/dL (8.4-25.7); Calc. Creatinine Clearance 47 mL/min (70-130); Calcium 9.1 mg/dL (7.8-10.44); Carbon Dioxide 25 mmol/L (23-31); Chloride 100 mmol/L (98-107); Estimated GFR 51; Glucose 110 mg/dL (83-110); Magnesium 2.4 mg/dL (1.6-2.6); Potassium 4.3 mmol/L (3.5-5.1); Sodium 136 mmol/L (136-145)
[2023-09-11 06:10] LABS: Troponin I 0.053 ng/mL (< 0.028)
[2023-09-11] MEDS ORDERED: Mometasone 200 MCG/Formoterol 5 MCG 120 PUFF INHALER INH SCH (06:30)
[2023-09-11 08:17] VITALS: BP 160/76; TEMP 98.7
[2023-09-11] MEDS: Sacubitril 49 MG/Valsartan 51 MG TABLET PO SCH (08:59)
[2023-09-11] MEDS: Clopidogrel Bisulfate 75 MG TAB PO SCH (08:59)
[2023-09-11] MEDS: Carvedilol 6.25 MG TAB PO SCH (08:59)
[2023-09-11] MEDS: Empagliflozin 10 MG TAB PO SCH (08:59)
[2023-09-11] MEDS: Dutasteride 0.5 MG CAP PO SCH (08:59)
[2023-09-11] MEDS: Bumetanide 1 MG TAB PO SCH (08:59)
[2023-09-11] MEDS: hydrALAZINE 25 MG TAB PO SCH ×2 (09:00→09:01)
[2023-09-11] MEDS: Ketorolac Tromethamine 30 MG (1 mL) VIAL IVP SCH (09:00)
[2023-09-11] MEDS: Tamsulosin HCl 0.4 MG CAP PO SCH (09:00)
[2023-09-11] MEDS: Amiodarone 200 MG TAB PO SCH (09:00)
[2023-09-11] MEDS ORDERED: Rosuvastatin 10 MG TAB PO SCH (21:00)
== END 2023-09-11 11:45 | disposition home or self-care (01) ==
LOC: ERS 17:16 → 2SW 09-11 00:18
PROVIDERS: ADMIT Internal Medicine; ATTEND Internal Medicine
DX: R07.2 Precordial pain (principal); I13.0 Hypertensive heart and chronic kidney disease with heart failure and stage 1 through stage 4 chronic kidney disease, or unspecified chronic kidney disease; N18.30 Chronic kidney disease, stage 3 unspecified; I50.40 Unspecified combined systolic (congestive) and diastolic (congestive) heart failure; G47.33 Obstructive sleep apnea (adult) (pediatric); I25.10 Atherosclerotic heart disease of native coronary artery without angina pectoris; I42.9 Cardiomyopathy, unspecified; I47.20 Ventricular tachycardia, unspecified; I48.91 Unspecified atrial fibrillation; J44.9 Chronic obstructive pulmonary disease, unspecified; E78.5 Hyperlipidemia, unspecified; E11.9 Type 2 diabetes mellitus without complications; N28.9 Disorder of kidney and ureter, unspecified; Z88.5 Allergy status to narcotic agent; Z79.51 Long term (current) use of inhaled steroids; Z79.84 Long term (current) use of oral hypoglycemic drugs; Z79.899 Other long term (current) drug therapy; F17.210 Nicotine dependence, cigarettes, uncomplicated
CPT/HCPCS: 71045; 71275; 74174; 80048; 82962; 83690; 83735 ×2; 83880; 84439; 84481; 84484 ×4; 85025; 85610; 85730; 93005; 94640; 96374; 96375; 96376; 99285; G0378; J1885; J3010 ×2; J3475; Q9967; 36415; 36416; 80053; 84443; J7620

== ENCOUNTER 2023-12-14 16:10 | Inpatient (IN) | payer MEDICARE, OTHER ==
[2023-12-14 16:44] LABS: #Basophils 0.04 10x3/uL (0.0-0.2); %Basophils 0.4 % (0.0-1.0); %Eosinophils 1.3 % (0.0-10.0); %Lymphocytes 9.4 % (21.0-51.0); %Monocytes 9.9 % (0.0-10.0); %Neutrophils 78.1 % (42.0-75.0); Hematocrit 22.3 % (42.0-52.0); Hemoglobin 6.6 g/dL (14.0-18.0); Mean Corpuscular HGB CONC 29.6 g/dL (32.0-36.0); Mean Corpuscular Hemoglobin 22.9 pg (27.0-31.0); Mean Corpuscular Volume 77.4 fL (78.0-98.0); Mean Platelet Volume 10.3 fL (7.4-10.4); Platelet Count 207 10x3/uL (130-400); RBC Distribution Width 16.4 % (11.5-14.5); Red Blood Cell (RBC) Count 2.88 mill/uL (4.70-6.10)
[2023-12-14 17:07] LABS: Troponin I 0.053 ng/mL (< 0.028)
[2023-12-14 17:13] LABS: ALT (SGPT) 263 U/L (8-55); AST (SGOT) 357 U/L (5-34); Albumin 3.2 g/dL (3.4-4.8); Alkaline Phosphatase 67 U/L (40-110); Anion Gap 16 mmol/L (10-20); BUN (Urea Nitrogen) 18 mg/dL (8.4-25.7); Bilirubin, Total 0.4 mg/dL (0.2-1.2); Calc. Creatinine Clearance 0 mL/min (70-130); Calcium 9.4 mg/dL (7.8-10.44); Carbon Dioxide 22 mmol/L (23-31); Chloride 100 mmol/L (98-107); Estimated GFR 48; Globulin 3.3 g/dL (2.4-3.5); Glucose 164 mg/dL (83-110); Potassium 3.9 mmol/L (3.5-5.1); Protein, Total 6.5 g/dL (5.8-8.1); Sodium 134 mmol/L (136-145)
[2023-12-14] MEDS ORDERED: Ipratropium/Albuterol 3 ML NEB ONE (17:49)
[2023-12-14] MEDS ORDERED: methylPREDNISolone Sod Succ/PF 125 MG/2 ML VIAL ONE (17:49)
[2023-12-14 19:49] LABS: Influenza A by NAA Not Detected (NotDetected); Influenza B by NAA Not Detected (NotDetected); SARS-CoV-2 NAA Rapid Test Not Detected (NotDetected)
[2023-12-14] MEDS ORDERED: Dextrose 5% in Water 1,000 ML IV PRN (20:23)
[2023-12-14] MEDS ORDERED: Glucagon 1 MG/ML KIT IM PRN (20:23)
[2023-12-14] MEDS ORDERED: Dextrose 50% Abboject 50 ML SYRINGE SLOW IVP PRN (20:23)
[2023-12-14] MEDS ORDERED: Calcium Carbonate 500 MG ChewTAB PO PRN (20:29)
[2023-12-14] MEDS ORDERED: Acetaminophen 325 MG TAB PO PRN (20:29)
[2023-12-14] MEDS ORDERED: Senokot S 8.6-50 MG TAB PO PRN (20:29)
[2023-12-14] MEDS ORDERED: Ondansetron PF 4 MG/2 ML Vial IVP PRN (20:29)
[2023-12-14 20:33] LABS: Troponin I 0.043 ng/mL (< 0.028)
[2023-12-14] MEDS ORDERED: Rosuvastatin 10 MG TAB PO SCH (21:00)
[2023-12-14 23:44] VITALS: BMI 26.1
[2023-12-14] MEDS: hydrALAZINE 25 MG TAB PO SCH (23:44)
[2023-12-14] MEDS: Pantoprazole 40 MG VIAL IVP SCH (23:45)
[2023-12-14] MEDS: methylPREDNISolone Sod Succ/PF 125 MG/2 ML VIAL IVP SCH (23:45)
[2023-12-14] MEDS: Insulin Lispro 100 UNIT/ML 10 ML VIAL SC PRN (23:52)
[2023-12-14] MEDS: Nicotine 21 MG PATCH TD SCH (23:55)
[2023-12-15] MEDS: Sodium Chloride 0.9% 1,000 ML IV SCH (00:33)
[2023-12-15] MEDS: Ipratropium/Albuterol 3 ML NEB NEB PRN (00:43)
[2023-12-15 02:52] LABS: Troponin I 0.034 ng/mL (< 0.028)
[2023-12-15 03:05] LABS: ALT (SGPT) 242 U/L (8-55); AST (SGOT) 284 U/L (5-34); Albumin 2.9 g/dL (3.4-4.8); Alkaline Phosphatase 63 U/L (40-110); Anion Gap 16 mmol/L (10-20); BUN (Urea Nitrogen) 24 mg/dL (8.4-25.7); Bilirubin, Total 0.5 mg/dL (0.2-1.2); Calc. Creatinine Clearance 42 mL/min (70-130); Calcium 9.1 mg/dL (7.8-10.44); Carbon Dioxide 19 mmol/L (23-31); Chloride 103 mmol/L (98-107); Estimated GFR 45; Globulin 2.9 g/dL (2.4-3.5); Glucose 297 mg/dL (83-110); Potassium 4.1 mmol/L (3.5-5.1); Protein, Total 5.8 g/dL (5.8-8.1); Sodium 134 mmol/L (136-145)
[2023-12-15] MEDS: Mometasone 100 MCG/Formoterol 5 MCG 120 PUFF INHALER INH SCH (07:18)
[2023-12-15 07:52] LABS: #Basophils Less than 0.03 10x3/uL (0.0-0.2); #Eosinphils Less than 0.03 10x3/uL (0.0-0.7); %Basophils 0.2 % (0.0-1.0); %Lymphocytes 7.4 % (21.0-51.0); %Monocytes 2.5 % (0.0-10.0); %Neutrophils 89.2 % (42.0-75.0); Hematocrit 22.1 % (42.0-52.0); Hemoglobin 6.7 g/dL (14.0-18.0); Mean Corpuscular HGB CONC 30.3 g/dL (32.0-36.0); Mean Corpuscular Hemoglobin 23.7 pg (27.0-31.0); Mean Corpuscular Volume 78.1 fL (78.0-98.0); Mean Platelet Volume 10.3 fL (7.4-10.4); Platelet Count 186 10x3/uL (130-400); RBC Distribution Width 16.6 % (11.5-14.5); Red Blood Cell (RBC) Count 2.83 mill/uL (4.70-6.10)
[2023-12-15 09:03] LABS: Iron 27 ug/dL (65-175); Iron Binding Capacity, Total 399 mcg/dL (261-462)
[2023-12-15] MEDS ORDERED: Iopamidol-370 76% 500 ML MDV (1 ML CHARGE) ONE (10:48)
[2023-12-15] MEDS: Empagliflozin 10 MG TAB PO SCH (11:52)
[2023-12-15] MEDS: Amiodarone 200 MG TAB PO SCH (11:52)
[2023-12-15] MEDS: Sertraline 100 MG TAB PO SCH (11:56)
[2023-12-15] MEDS: Ipratropium/Albuterol 3 ML NEB NEB SCH (11:57)
[2023-12-15] MEDS: ALPRAZolam 0.25 MG TAB PO PRN (12:16)
[2023-12-15] MEDS: diphenhydrAMINE 50 MG/ML VIAL IVP SCH (13:54)
[2023-12-15] MEDS: Carvedilol 6.25 MG TAB PO SCH (15:36)
[2023-12-15] MEDS: Insulin Lispro 100 UNIT/ML 10 ML VIAL SC PRN (18:38)
[2023-12-16] MEDS: diphenhydrAMINE 25 MG CAP PO SCH (02:10)
[2023-12-16 06:02] LABS: HBCM Index 0.17 S/CO (0-0.79); HBsAg Index 0.38 S/CO (0-0.99); Hep A IgM AB NONREACTIVE (NonReactive); Hep A IgM S/CO 0.42 S/CO (0-0.79); Hep B Surf Ag NONREACTIVE S/CO (NonReactive); Hep C IgG Ab NONREACTIVE S/CO (NonReactive); Hep C Index 0.05 S/CO (0-0.79); Hepatitis B Core IgM Abs NONREACTIVE S/CO (NonReactive)
[2023-12-16 06:33] LABS: Hematocrit 24.6 % (42.0-52.0); Hemoglobin 7.9 g/dL (14.0-18.0); Mean Corpuscular HGB CONC 32.1 g/dL (32.0-36.0); Mean Corpuscular Hemoglobin 24.8 pg (27.0-31.0); Mean Corpuscular Volume 77.4 fL (78.0-98.0); Red Blood Cell (RBC) Count 3.18 mill/uL (4.70-6.10)
[2023-12-16 06:34] LABS: Mean Platelet Volume 10.3 fL (7.4-10.4); Platelet Count 186 10x3/uL (130-400); RBC Distribution Width 16.8 % (11.5-14.5)
[2023-12-16 07:55] LABS: Anion Gap 13 mmol/L (10-20); BUN (Urea Nitrogen) 25 mg/dL (8.4-25.7); Calc. Creatinine Clearance 55 mL/min (70-130); Calcium 8.9 mg/dL (7.8-10.44); Carbon Dioxide 22 mmol/L (23-31); Chloride 103 mmol/L (98-107); Estimated GFR 62; Glucose 200 mg/dL (83-110); Potassium 3.6 mmol/L (3.5-5.1); Sodium 134 mmol/L (136-145)
[2023-12-16] MEDS: GoLYTELY 4,000 ml Bottle PO SCH (18:15)
[2023-12-17] MEDS ORDERED: PROPOFOL 40 ML ONE (08:44)
[2023-12-17] MEDS ORDERED: Lidocaine 2% PF 5 ML VIAL ONE (08:44)
[2023-12-17] MEDS ORDERED: Ketamine In 0.9 % NaCl 50 MG/5 ML SYRINGE ONE (09:26)
[2023-12-17] MEDS ORDERED: Midazolam HCl 2 mg/2 ml Vial ONE (09:26)
[2023-12-17 12:52] LABS: #Basophils Less than 0.03 10x3/uL (0.0-0.2); #Eosinphils Less than 0.03 10x3/uL (0.0-0.7); %Basophils 0.1 % (0.0-1.0); %Lymphocytes 3.4 % (21.0-51.0); %Monocytes 4.2 % (0.0-10.0); %Neutrophils 90.9 % (42.0-75.0); Hematocrit 26.8 % (42.0-52.0); Hemoglobin 8.5 g/dL (14.0-18.0); Mean Corpuscular HGB CONC 31.7 g/dL (32.0-36.0); Mean Corpuscular Hemoglobin 25.1 pg (27.0-31.0); Mean Corpuscular Volume 79.3 fL (78.0-98.0); Mean Platelet Volume 9.7 fL (7.4-10.4); Platelet Count 211 10x3/uL (130-400); RBC Distribution Width 17.6 % (11.5-14.5); Red Blood Cell (RBC) Count 3.38 mill/uL (4.70-6.10)
[2023-12-17 13:28] LABS: ALT (SGPT) 197 U/L (8-55); AST (SGOT) 127 U/L (5-34); Albumin 2.9 g/dL (3.4-4.8); Alkaline Phosphatase 63 U/L (40-110); Anion Gap 10 mmol/L (10-20); BUN (Urea Nitrogen) 28 mg/dL (8.4-25.7); Bilirubin, Total 0.4 mg/dL (0.2-1.2); Calc. Creatinine Clearance 50 mL/min (70-130); Calcium 9.1 mg/dL (7.8-10.44); Carbon Dioxide 28 mmol/L (23-31); Chloride 103 mmol/L (98-107); Estimated GFR 55; Globulin 2.9 g/dL (2.4-3.5); Glucose 144 mg/dL (83-110); Potassium 2.9 mmol/L (3.5-5.1); Protein, Total 5.8 g/dL (5.8-8.1); Sodium 138 mmol/L (136-145)
[2023-12-17] MEDS: Potassium Chloride 20 MEQ TAB PO SCH (16:40)
[2023-12-17] MEDS: Sacubitril 49 MG/Valsartan 51 MG TABLET PO SCH (20:51)
[2023-12-17] MEDS: methylPREDNISolone Sod Succ 40 MG VIAL IVP SCH (23:08)
[2023-12-18 04:32] LABS: #Basophils Less than 0.03 10x3/uL (0.0-0.2); #Eosinphils Less than 0.03 10x3/uL (0.0-0.7); %Basophils 0.1 % (0.0-1.0); %Monocytes 2.9 % (0.0-10.0); %Neutrophils 93.1 % (42.0-75.0); Hematocrit 26.2 % (42.0-52.0); Hemoglobin 8.1 g/dL (14.0-18.0); Mean Corpuscular HGB CONC 30.9 g/dL (32.0-36.0); Mean Corpuscular Hemoglobin 24.5 pg (27.0-31.0); Mean Corpuscular Volume 79.4 fL (78.0-98.0); Mean Platelet Volume 10.1 fL (7.4-10.4); Platelet Count 204 10x3/uL (130-400); RBC Distribution Width 18.2 % (11.5-14.5)
[2023-12-18 04:48] LABS: ALT (SGPT) 182 U/L (8-55); AST (SGOT) 108 U/L (5-34); Albumin 2.7 g/dL (3.4-4.8); Alkaline Phosphatase 58 U/L (40-110); Anion Gap 13 mmol/L (10-20); BUN (Urea Nitrogen) 28 mg/dL (8.4-25.7); Bilirubin, Total 0.4 mg/dL (0.2-1.2); Calc. Creatinine Clearance 57 mL/min (70-130); Calcium 8.8 mg/dL (7.8-10.44); Carbon Dioxide 24 mmol/L (23-31); Chloride 104 mmol/L (98-107); Estimated GFR 65; Globulin 2.7 g/dL (2.4-3.5); Glucose 141 mg/dL (83-110); Potassium 3.8 mmol/L (3.5-5.1); Protein, Total 5.4 g/dL (5.8-8.1); Sodium 137 mmol/L (136-145)
[2023-12-18] MEDS: Spironolactone 25 MG TAB PO SCH (08:27)
[2023-12-18] MEDS: Doxycycline 100 MG in Syringe 0 ML IVPB SCH (12:25)
[2023-12-18] MEDS: Doxycycline 100 MG in Sodium Chloride 0.9% 100 ML IVPB SCH (12:59)
[2023-12-18] MEDS: Sacubitril 49 MG/Valsartan 51 MG TABLET PO SCH (21:17)
[2023-12-19 03:53] LABS: #Basophils Less than 0.03 10x3/uL (0.0-0.2); #Eosinphils Less than 0.03 10x3/uL (0.0-0.7); %Basophils 0.1 % (0.0-1.0); %Lymphocytes 2.9 % (21.0-51.0); %Monocytes 2.7 % (0.0-10.0); %Neutrophils 92.9 % (42.0-75.0); Hematocrit 26.6 % (42.0-52.0); Mean Corpuscular HGB CONC 30.1 g/dL (32.0-36.0); Mean Corpuscular Hemoglobin 24.4 pg (27.0-31.0); Mean Corpuscular Volume 81.1 fL (78.0-98.0); Platelet Count 215 10x3/uL (130-400); RBC Distribution Width 18.8 % (11.5-14.5); Red Blood Cell (RBC) Count 3.28 mill/uL (4.70-6.10)
[2023-12-19 04:12] LABS: ALT (SGPT) 245 U/L (8-55); AST (SGOT) 181 U/L (5-34); Albumin 2.6 g/dL (3.4-4.8); Alkaline Phosphatase 64 U/L (40-110); Anion Gap 13 mmol/L (10-20); BUN (Urea Nitrogen) 32 mg/dL (8.4-25.7); Bilirubin, Total 0.3 mg/dL (0.2-1.2); Calc. Creatinine Clearance 47 mL/min (70-130); Carbon Dioxide 24 mmol/L (23-31); Chloride 105 mmol/L (98-107); Estimated GFR 51; Globulin 2.8 g/dL (2.4-3.5); Glucose 244 mg/dL (83-110); Potassium 4.7 mmol/L (3.5-5.1); Protein, Total 5.4 g/dL (5.8-8.1); Sodium 137 mmol/L (136-145)
[2023-12-19] MEDS: hydrALAZINE 25 MG TAB PO SCH ×2 (09:43→14:41)
[2023-12-19] MEDS: Guaifenesin DM 100-10/5 ML UDCUP PO PRN (13:31)
[2023-12-19] MEDS: methylPREDNISolone Sod Succ 40 MG VIAL IVP SCH (13:31)
[2023-12-19] MEDS: Ipratropium/Albuterol 3 ML NEB NEB SCH (14:15)
[2023-12-19] MEDS: guaiFENesin ER 600 MG TAB PO SCH (14:41)
[2023-12-19] MEDS: Zolpidem Tartrate 5 MG TAB PO PRN (20:42)
[2023-12-19] MEDS: Lorazepam 0.5 MG TAB PO PRN (20:46)
[2023-12-20] MEDS: guaiFENesin ER 600 MG TAB PO SCH (00:17)
[2023-12-20 04:23] LABS: #Basophils Less than 0.03 10x3/uL (0.0-0.2); #Eosinphils Less than 0.03 10x3/uL (0.0-0.7); %Basophils 0.1 % (0.0-1.0); %Lymphocytes 3.7 % (21.0-51.0); %Monocytes 2.6 % (0.0-10.0); %Neutrophils 91.8 % (42.0-75.0); Hematocrit 27.1 % (42.0-52.0); Hemoglobin 8.2 g/dL (14.0-18.0); Mean Corpuscular HGB CONC 30.3 g/dL (32.0-36.0); Mean Corpuscular Hemoglobin 24.3 pg (27.0-31.0); Mean Corpuscular Volume 80.4 fL (78.0-98.0); Mean Platelet Volume 10.7 fL (7.4-10.4); Platelet Count 254 10x3/uL (130-400); RBC Distribution Width 19.2 % (11.5-14.5); Red Blood Cell (RBC) Count 3.37 mill/uL (4.70-6.10)
[2023-12-20 04:49] LABS: ALT (SGPT) 250 U/L (8-55); AST (SGOT) 134 U/L (5-34); Albumin 2.5 g/dL (3.4-4.8); Alkaline Phosphatase 63 U/L (40-110); Anion Gap 11 mmol/L (10-20); BUN (Urea Nitrogen) 37 mg/dL (8.4-25.7); Bilirubin, Total 0.3 mg/dL (0.2-1.2); Calc. Creatinine Clearance 47 mL/min (70-130); Carbon Dioxide 23 mmol/L (23-31); Chloride 107 mmol/L (98-107); Estimated GFR 51; Globulin 2.7 g/dL (2.4-3.5); Glucose 195 mg/dL (83-110); Protein, Total 5.2 g/dL (5.8-8.1); Sodium 136 mmol/L (136-145)
[2023-12-20] MEDS: Aspirin Chewable 81 MG TAB PO SCH (13:58)
[2023-12-21] MEDS: Clopidogrel Bisulfate 75 MG TAB PO SCH (08:24)
[2023-12-21] MEDS: Aspirin Chewable 81 MG TAB PO SCH (08:24)
[2023-12-21 10:58] LABS: #Basophils Less than 0.03 10x3/uL (0.0-0.2); #Eosinphils Less than 0.03 10x3/uL (0.0-0.7); %Basophils 0.1 % (0.0-1.0); %Lymphocytes 2.9 % (21.0-51.0); Hematocrit 27.1 % (42.0-52.0); Hemoglobin 8.2 g/dL (14.0-18.0); Mean Corpuscular HGB CONC 30.3 g/dL (32.0-36.0); Mean Corpuscular Hemoglobin 24.3 pg (27.0-31.0); Mean Corpuscular Volume 80.4 fL (78.0-98.0); Mean Platelet Volume 10.5 fL (7.4-10.4); Platelet Count 291 10x3/uL (130-400); RBC Distribution Width 19.4 % (11.5-14.5); Red Blood Cell (RBC) Count 3.37 mill/uL (4.70-6.10)
[2023-12-21 11:15] LABS: ALT (SGPT) 242 U/L (8-55); AST (SGOT) 95 U/L (5-34); Albumin 2.5 g/dL (3.4-4.8); Alkaline Phosphatase 70 U/L (40-110); Anion Gap 13 mmol/L (10-20); BUN (Urea Nitrogen) 44 mg/dL (8.4-25.7); Bilirubin, Total 0.3 mg/dL (0.2-1.2); Calc. Creatinine Clearance 46 mL/min (70-130); Calcium 9.2 mg/dL (7.8-10.44); Carbon Dioxide 23 mmol/L (23-31); Chloride 108 mmol/L (98-107); Estimated GFR 50; Globulin 2.8 g/dL (2.4-3.5); Glucose 309 mg/dL (83-110); Potassium 5.8 mmol/L (3.5-5.1); Protein, Total 5.3 g/dL (5.8-8.1); Sodium 138 mmol/L (136-145)
[2023-12-21] MEDS: Doxycycline 100 MG CAP PO SCH ×2 (13:17→21:41)
[2023-12-21] MEDS ORDERED: Dextrose 50% Abboject 50 ML SYRINGE SLOW IVP PRN (17:22)
[2023-12-21] MEDS: Insulin Regular, Human 100 UNIT/ML 10 ML VIAL SC SCH (17:44)
[2023-12-21] MEDS: Sodium Polystyrene Sulfonate 15 GM (60 mL) BOT PO SCH (17:45)
[2023-12-21] MEDS: Calcium Gluc 4.6 MEQ/10 ML (100 MG/ML) SLOW IVP SCH (17:46)
[2023-12-21 20:57] VITALS: BMI 26.1
[2023-12-21] MEDS: hydrOXYzine 25 MG TAB PO PRN (21:42)
[2023-12-21] MEDS: predniSONE 20 MG TAB PO SCH (21:42)
[2023-12-22 07:18] LABS: #Basophils Less than 0.03 10x3/uL (0.0-0.2); #Eosinphils Less than 0.03 10x3/uL (0.0-0.7); %Basophils 0.1 % (0.0-1.0); %Lymphocytes 4.2 % (21.0-51.0); %Monocytes 4.5 % (0.0-10.0); %Neutrophils 89.9 % (42.0-75.0); Hematocrit 29.3 % (42.0-52.0); Hemoglobin 8.7 g/dL (14.0-18.0); Mean Corpuscular HGB CONC 29.7 g/dL (32.0-36.0); Mean Corpuscular Volume 80.9 fL (78.0-98.0); Mean Platelet Volume 10.8 fL (7.4-10.4); Platelet Count 343 10x3/uL (130-400); RBC Distribution Width 19.8 % (11.5-14.5); Red Blood Cell (RBC) Count 3.62 mill/uL (4.70-6.10)
[2023-12-22 07:31] LABS: Anion Gap 15 mmol/L (10-20); BUN (Urea Nitrogen) 45 mg/dL (8.4-25.7); Calc. Creatinine Clearance 47 mL/min (70-130); Calcium 8.8 mg/dL (7.8-10.44); Carbon Dioxide 22 mmol/L (23-31); Chloride 106 mmol/L (98-107); Estimated GFR 51; Glucose 285 mg/dL (83-110); Potassium 4.7 mmol/L (3.5-5.1); Sodium 138 mmol/L (136-145)
[2023-12-22 10:23] VITALS: BP 166/70; TEMP 98.4
[2023-12-22] MEDS: Pantoprazole DR 40 MG TAB PO SCH (11:20)
== END 2023-12-22 11:45 | disposition home or self-care (01) | DRG 811 ==
LOC: ERS 16:10 → SUATTDRO 16:10 → ERHOLD 19:32 → 2SW 22:21
PROVIDERS: ADMIT Internal Medicine; ATTEND Hospitalist
PROC: 30233N1 Transfusion of Nonautologous Red Blood Cells into Peripheral Vein, Percutaneous Approach (ICD-10-PCS; 2023-12-14)
PROC: 0DB98ZX Excision of Duodenum, Via Natural or Artificial Opening Endoscopic, Diagnostic (ICD-10-PCS; principal; 2023-12-17)
PROC: 0DB68ZX Excision of Stomach, Via Natural or Artificial Opening Endoscopic, Diagnostic (ICD-10-PCS; 2023-12-17)
PROC: 0DBL8ZZ Excision of Transverse Colon, Via Natural or Artificial Opening Endoscopic (ICD-10-PCS; 2023-12-17)
DX: D50.9 Iron deficiency anemia, unspecified (principal); J96.21 Acute and chronic respiratory failure with hypoxia; J44.1 Chronic obstructive pulmonary disease with (acute) exacerbation; I13.0 Hypertensive heart and chronic kidney disease with heart failure and stage 1 through stage 4 chronic kidney disease, or unspecified chronic kidney disease; K63.5 Polyp of colon; Z66 Do not resuscitate; Z79.899 Other long term (current) drug therapy; Z88.8 Allergy status to other drugs, medicaments and biological substances; I50.9 Heart failure, unspecified; I48.91 Unspecified atrial fibrillation; E78.5 Hyperlipidemia, unspecified; N40.0 Benign prostatic hyperplasia without lower urinary tract symptoms; F17.210 Nicotine dependence, cigarettes, uncomplicated; I25.10 Atherosclerotic heart disease of native coronary artery without angina pectoris; N18.9 Chronic kidney disease, unspecified; Z90.49 Acquired absence of other specified parts of digestive tract; Z98.49 Cataract extraction status, unspecified eye; E88.09 Other disorders of plasma-protein metabolism, not elsewhere classified; K64.8 Other hemorrhoids; E11.22 Type 2 diabetes mellitus with diabetic chronic kidney disease
CPT/HCPCS: 36415; 36416; 36430; 71045; 74177; 80048; 80053; 80074; 82728; 83540; 83550; 83880; 84484; 85025; 85027; 86850; 86900; 86901; 88305; 93005; 94640; 96374; C1889; J0612; J1200; J1815; J2001; J2250; J2470; J2704; J2919; J3490; J7030; J7512; J7620; P9016; Q9967

== ENCOUNTER 2024-01-20 18:41 | Inpatient (IN) | payer MEDICARE ==
[2024-01-20] MEDS ORDERED: Albuterol 2.5 MG (3 mL) NEB ONE (19:52)
[2024-01-20] MEDS ORDERED: Ipratropium/Albuterol 3 ML NEB ONE (19:52)
[2024-01-20 20:28] LABS: ALT (SGPT) 22 U/L (8-55); AST (SGOT) 37 U/L (5-34); Albumin 3.2 g/dL (3.4-4.8); Alkaline Phosphatase 75 U/L (40-110); Anion Gap 15 mmol/L (10-20); BUN (Urea Nitrogen) 21 mg/dL (8.4-25.7); Bilirubin, Total 0.2 mg/dL (0.2-1.2); Calc. Creatinine Clearance 0 mL/min (70-130); Calcium 8.9 mg/dL (7.8-10.44); Carbon Dioxide 24 mmol/L (23-31); Chloride 104 mmol/L (98-107); Estimated GFR 46; Globulin 3.1 g/dL (2.4-3.5); Glucose 130 mg/dL (83-110); Potassium 5.2 mmol/L (3.5-5.1); Protein, Total 6.3 g/dL (5.8-8.1); Sodium 138 mmol/L (136-145)
[2024-01-20 20:43] LABS: #Basophils 0.04 10x3/uL (0.0-0.2); %Basophils 0.6 % (0.0-1.0); %Eosinophils 1.1 % (0.0-10.0); %Lymphocytes 21.8 % (21.0-51.0); %Neutrophils 63.3 % (42.0-75.0); Hematocrit 20.9 % (42.0-52.0); Mean Corpuscular HGB CONC 28.7 g/dL (32.0-36.0); Mean Corpuscular Hemoglobin 23.6 pg (27.0-31.0); Mean Corpuscular Volume 82.3 fL (78.0-98.0); Mean Platelet Volume 9.5 fL (7.4-10.4); Platelet Count 298 10x3/uL (130-400); RBC Distribution Width 22.4 % (11.5-14.5); Red Blood Cell (RBC) Count 2.54 mill/uL (4.70-6.10)
[2024-01-20 21:27] LABS: Anisocytosis SLIGHT = 6-15 cells HPF (0-5); Hypochromia SLIGHT = 6-15 cells HPF (0-5); Microcytosis SLIGHT = 6-15 cells HPF (0-5); Platelet Adequacy Comment Platelets Normal; Polychromasia SLIGHT = 2-3 cells HPF (0-2); Target Cells SLIGHT = 2-5 cells HPF (0-1); Tear Drops SLIGHT = 2-5 cells HPF (0-1)
[2024-01-20] MEDS ORDERED: Pantoprazole 40 MG VIAL ONE (22:07)
[2024-01-20] MEDS ORDERED: Ondansetron ODT 4 MG TAB SL PRN (23:45)
[2024-01-20] MEDS ORDERED: Ondansetron PF 4 MG/2 ML Vial IVP PRN (23:45)
[2024-01-20] MEDS ORDERED: Acetaminophen 325 MG TAB PO PRN (23:45)
[2024-01-21] MEDS ORDERED: Dextrose 5% in Water 1,000 ML IV PRN (00:42)
[2024-01-21] MEDS ORDERED: Insulin Lispro 100 UNIT/ML 10 ML VIAL SC PRN ×2 (00:42)
[2024-01-21] MEDS ORDERED: Glucagon 1 MG/ML KIT IM PRN (00:42)
[2024-01-21] MEDS ORDERED: Dextrose 50% Abboject 50 ML SYRINGE SLOW IVP PRN (00:42)
[2024-01-21 00:59] VITALS: BMI 27.1
[2024-01-21 01:03] LABS: Iron 58 ug/dL (65-175); Iron Binding Capacity, Total 455 mcg/dL (261-462)
[2024-01-21] MEDS: Ipratropium/Albuterol 3 ML NEB NEB SCH (02:44)
[2024-01-21 04:09] LABS: Hematocrit 21.1 % (42.0-52.0); Hemoglobin 6.3 g/dL (14.0-18.0)
[2024-01-21] MEDS: Pantoprazole 40 MG VIAL IVP SCH (08:16)
[2024-01-21 08:58] LABS: Hematocrit 25.8 % (42.0-52.0); Hemoglobin 7.6 g/dL (14.0-18.0); Platelet Count 218 10x3/uL (130-400)
[2024-01-21] MEDS: FLU (Fluad Triv) TS24-25 (65UP)/MF59C/PF 45 MCG/0.5 ML Syringe IM ONE (12:02)
[2024-01-21] MEDS: Nicotine 21 MG PATCH TD SCH (12:55)
[2024-01-21] MEDS ORDERED: Ipratropium/Albuterol 3 ML NEB NEB PRN (13:02)
[2024-01-21] MEDS ORDERED: Albuterol 2.5 MG (3 mL) NEB NEB PRN (13:22)
[2024-01-21] MEDS: Sacubitril 49 MG/Valsartan 51 MG TABLET PO SCH ×2 (13:51→20:07)
[2024-01-21] MEDS: Carvedilol 6.25 MG TAB PO SCH (13:51)
[2024-01-21] MEDS: Bumetanide 1 MG TAB PO SCH ×2 (13:51→20:06)
[2024-01-21] MEDS: Amiodarone 200 MG TAB PO SCH (13:52)
[2024-01-21] MEDS: metFORMIN 500 MG TAB PO SCH (17:23)
[2024-01-21] MEDS: Sodium Ferric Gluconate 250 MG in Sodium Chloride 0.9% 250 ML 250 ML IVPB SCH (17:23)
[2024-01-21] MEDS: Mometasone 100 MCG/Formoterol 5 MCG 120 PUFF INHALER INH SCH (18:31)
[2024-01-21] MEDS: hydrALAZINE 25 MG TAB PO SCH (20:06)
[2024-01-21] MEDS: Rosuvastatin 10 MG TAB PO SCH (20:06)
[2024-01-21] MEDS: Dutasteride 0.5 MG CAP PO SCH (20:06)
[2024-01-21] MEDS ORDERED: Gabapentin 300 MG CAP PO SCH (21:00)
[2024-01-21] MEDS ORDERED: ALPRAZolam 0.25 MG TAB PO SCH (21:00)
[2024-01-22 05:58] LABS: #Basophils 0.05 10x3/uL (0.0-0.2); %Basophils 0.7 % (0.0-1.0); %Eosinophils 0.7 % (0.0-10.0); %Lymphocytes 17.1 % (21.0-51.0); %Monocytes 12.5 % (0.0-10.0); %Neutrophils 67.2 % (42.0-75.0); Hematocrit 26.4 % (42.0-52.0); Hemoglobin 7.9 g/dL (14.0-18.0); Mean Corpuscular HGB CONC 29.9 g/dL (32.0-36.0); Mean Corpuscular Hemoglobin 24.8 pg (27.0-31.0); Mean Platelet Volume 9.8 fL (7.4-10.4); Platelet Count 250 10x3/uL (130-400); RBC Distribution Width 20.7 % (11.5-14.5); Red Blood Cell (RBC) Count 3.18 mill/uL (4.70-6.10)
[2024-01-22 06:23] LABS: Anion Gap 15 mmol/L (10-20); BUN (Urea Nitrogen) 16 mg/dL (8.4-25.7); Calc. Creatinine Clearance 51 mL/min (70-130); Calcium 8.3 mg/dL (7.8-10.44); Carbon Dioxide 24 mmol/L (23-31); Chloride 102 mmol/L (98-107); Estimated GFR 55; Glucose 98 mg/dL (83-110); Potassium 3.5 mmol/L (3.5-5.1); Sodium 137 mmol/L (136-145)
[2024-01-22 07:49] VITALS: BP 154/84; TEMP 97.7
[2024-01-22] MEDS: guaiFENesin ER 600 MG TAB PO SCH (08:45)
[2024-01-22] MEDS: Tamsulosin HCl 0.4 MG CAP PO SCH (08:46)
[2024-01-22] MEDS: Cholecalciferol 1,000 UNITS (25 MCG) TAB PO SCH (08:46)
[2024-01-22] MEDS: Amiodarone 200 MG TAB PO SCH (08:46)
[2024-01-22] MEDS: Carvedilol 6.25 MG TAB PO SCH (08:47)
[2024-01-22] MEDS: Empagliflozin 10 MG TAB PO SCH (08:47)
[2024-01-22] MEDS: Montelukast Sodium 10 mg Tablet PO SCH (08:47)
[2024-01-22] MEDS: Sertraline 100 MG TAB PO SCH (08:47)
[2024-01-22] MEDS: Nicotine 21 MG PATCH TD SCH (08:48)
[2024-01-22 09:58] LABS: Thyroid Stimulating Hormone 28.4427 uIU/mL (0.35-4.94)
[2024-01-22] MEDS: Benzonatate 100 MG CAP PO PRN (10:39)
[2024-01-22] MEDS: Sodium Ferric Gluconate 250 MG in Sodium Chloride 0.9% 250 ML 250 ML IVPB SCH (12:30)
[2024-01-22] MEDS: Famotidine 20 MG TAB PO SCH (12:47)
[2024-01-22] MEDS: Mag-Al 1200 mg/1200 mg/30 ML UDCUP PO PRN (12:47)
== END 2024-01-22 14:44 | disposition home or self-care (01) | DRG 812 ==
LOC: ERS 18:41 → T4-A 23:37
PROVIDERS: ADMIT Student in an Organized Health Care Education/Training Program; ATTEND Family Medicine
PROC: 30233N1 Transfusion of Nonautologous Red Blood Cells into Peripheral Vein, Percutaneous Approach (ICD-10-PCS; principal; 2024-01-20)
DX: D64.9 Anemia, unspecified (principal); K92.1 Melena; I13.0 Hypertensive heart and chronic kidney disease with heart failure and stage 1 through stage 4 chronic kidney disease, or unspecified chronic kidney disease; I50.42 Chronic combined systolic (congestive) and diastolic (congestive) heart failure; N40.0 Benign prostatic hyperplasia without lower urinary tract symptoms; J44.9 Chronic obstructive pulmonary disease, unspecified; I48.91 Unspecified atrial fibrillation; I25.10 Atherosclerotic heart disease of native coronary artery without angina pectoris; N18.31 Chronic kidney disease, stage 3a; E87.5 Hyperkalemia; E03.9 Hypothyroidism, unspecified; G47.33 Obstructive sleep apnea (adult) (pediatric); Z88.8 Allergy status to other drugs, medicaments and biological substances; Z88.5 Allergy status to narcotic agent; Z99.2 Dependence on renal dialysis; Z86.73 Personal history of transient ischemic attack (TIA), and cerebral infarction without residual deficits; Z98.890 Other specified postprocedural states; Z95.0 Presence of cardiac pacemaker; Z91.148 Patient's other noncompliance with medication regimen for other reason
CPT/HCPCS: 36415; 36416; 36430; 80048; 80053; 82728; 83540; 83550; 84443; 84481; 85014; 85018; 85025; 86850; 86900; 86901; 90653; 93005; 94760; 96374; J2470; J2916; J7050; J7611; J7620; P9016

== ENCOUNTER 2024-01-25 12:23 | Emergency (ER) | payer MEDICARE | END 2024-01-25 15:15 | disposition home or self-care (01) | LOC: ERS 12:23 | DX: I82.612 Acute embolism and thrombosis of superficial veins of left upper extremity (principal); E11.9 Type 2 diabetes mellitus without complications; I10 Essential (primary) hypertension; I48.91 Unspecified atrial fibrillation; J44.9 Chronic obstructive pulmonary disease, unspecified; F17.210 Nicotine dependence, cigarettes, uncomplicated ==

== ENCOUNTER 2024-04-02 11:24 | Inpatient (IN) | payer MEDICARE ==
[2024-04-02] MEDS ORDERED: Aspirin Chewable 81 MG TAB ONE (12:16)
[2024-04-02] MEDS ORDERED: methylPREDNISolone Sod Succ/PF 125 MG/2 ML VIAL ONE (12:16)
[2024-04-02] MEDS ORDERED: Magnesium 2 GM/50 ML BAG (IN WATER) ONE (12:16)
[2024-04-02] MEDS ORDERED: Albuterol 2.5 MG (0.5 mL) NEB ONE ×2 (12:31→14:25)
[2024-04-02] MEDS ORDERED: Ipratropium Bromide 2.5 ml Neb ONE ×2 (12:32→14:25)
[2024-04-02 12:45] LABS: #Basophils 0.04 10x3/uL (0.0-0.2); %Basophils 0.6 % (0.0-1.0); %Eosinophils 1.7 % (0.0-10.0); %Monocytes 5.4 % (0.0-10.0); Hematocrit 24.3 % (42.0-52.0); Hemoglobin 7.4 g/dL (14.0-18.0); Mean Corpuscular HGB CONC 30.5 g/dL (32.0-36.0); Mean Corpuscular Hemoglobin 26.5 pg (27.0-31.0); Mean Corpuscular Volume 87.1 fL (78.0-98.0); Mean Platelet Volume 9.7 fL (7.4-10.4); Platelet Count 175 10x3/uL (130-400); RBC Distribution Width 17.3 % (11.5-14.5); Red Blood Cell (RBC) Count 2.79 mill/uL (4.70-6.10)
[2024-04-02 13:02] LABS: ALT (SGPT) 68 U/L (8-55); AST (SGOT) 75 U/L (5-34); Albumin 3.2 g/dL (3.4-4.8); Alkaline Phosphatase 67 U/L (40-110); Anion Gap 16 mmol/L (10-20); BUN (Urea Nitrogen) 18 mg/dL (8.4-25.7); Bilirubin, Total 0.2 mg/dL (0.2-1.2); Calc. Creatinine Clearance 0 mL/min (70-130); Calcium 8.6 mg/dL (7.8-10.44); Carbon Dioxide 22 mmol/L (23-31); Chloride 106 mmol/L (98-107); Estimated GFR 56; Globulin 2.9 g/dL (2.4-3.5); Glucose 187 mg/dL (83-110); Potassium 4.1 mmol/L (3.5-5.1); Protein, Total 6.1 g/dL (5.8-8.1); Sodium 140 mmol/L (136-145)
[2024-04-02 13:05] LABS: Troponin I 0.047 ng/mL (< 0.028)
[2024-04-02] MEDS ORDERED: Furosemide 40 MG (4 mL) VIAL ONE (14:26)
[2024-04-02] MEDS ORDERED: Senokot S 8.6-50 MG TAB PO PRN (14:28)
[2024-04-02] MEDS ORDERED: Bisacodyl 5 MG TAB PO PRN (14:28)
[2024-04-02] MEDS ORDERED: Dextrose 50% Abboject 50 ML SYRINGE SLOW IVP PRN (14:42)
[2024-04-02] MEDS ORDERED: Dextrose 5% in Water 1,000 ML IV PRN (14:42)
[2024-04-02] MEDS ORDERED: Glucagon 1 MG/ML KIT IM PRN (14:42)
[2024-04-02 16:16] VITALS: BMI 27.3
[2024-04-02 17:57] LABS: Troponin I 0.039 ng/mL (< 0.028)
[2024-04-02] MEDS: methylPREDNISolone Sod Succ 40 MG VIAL IVP SCH (18:11)
[2024-04-02] MEDS: Ipratropium/Albuterol 3 ML NEB NEB SCH (19:39)
[2024-04-02] MEDS: Arformoterol 15 MCG/2 ML NEB NEB SCH (19:43)
[2024-04-02 20:49] LABS: Troponin I 0.035 ng/mL (< 0.028)
[2024-04-02] MEDS: Famotidine 20 MG TAB PO SCH (21:46)
[2024-04-02] MEDS: Doxycycline 100 MG CAP PO SCH (21:47)
[2024-04-02] MEDS: Benzonatate 100 MG CAP PO PRN (22:36)
[2024-04-03 03:49] LABS: #Basophils Less than 0.03 10x3/uL (0.0-0.2); #Eosinophils Less than 0.03 10x3/uL (0.0-0.7); %Lymphocytes 7.7 % (21.0-51.0); %Monocytes 1.1 % (0.0-10.0); %Neutrophils 90.3 % (42.0-75.0); Hematocrit 23.2 % (42.0-52.0); Hemoglobin 7.1 g/dL (14.0-18.0); Mean Corpuscular HGB CONC 30.6 g/dL (32.0-36.0); Mean Corpuscular Hemoglobin 25.9 pg (27.0-31.0); Mean Corpuscular Volume 84.7 fL (78.0-98.0); Mean Platelet Volume 10.5 fL (7.4-10.4); Platelet Count 179 10x3/uL (130-400); RBC Distribution Width 17.4 % (11.5-14.5); Red Blood Cell (RBC) Count 2.74 mill/uL (4.70-6.10)
[2024-04-03 04:02] LABS: Anion Gap 16 mmol/L (10-20); BUN (Urea Nitrogen) 21 mg/dL (8.4-25.7); Calc. Creatinine Clearance 49 mL/min (70-130); Calcium 8.7 mg/dL (7.8-10.44); Carbon Dioxide 22 mmol/L (23-31); Chloride 104 mmol/L (98-107); Estimated GFR 50; Glucose 275 mg/dL (83-110); Magnesium 1.7 mg/dL (1.6-2.6); Potassium 4.3 mmol/L (3.5-5.1); Sodium 138 mmol/L (136-145)
[2024-04-03] MEDS: Furosemide 40 MG (4 mL) VIAL SLOW IVP SCH (05:34)
[2024-04-03] MEDS: Insulin Regular, Human 100 UNIT/ML 10 ML VIAL SC PRN (06:25)
[2024-04-03] MEDS ORDERED: Electrolyte Replacement Protocol 1 EACH FS SCH (08:00)
[2024-04-03] MEDS ORDERED: Electrolyte Replacement Protocol FS PRN (08:15)
[2024-04-03] MEDS ORDERED: Magnesium 2 GM/50 ML(in water) 2 GM in Premix 1 BAG IVPB SCH (08:15)
[2024-04-03] MEDS: Mometasone 100 MCG/Formoterol 5 MCG 120 PUFF INHALER INH SCH ×2 (09:38→19:38)
[2024-04-03] MEDS: Levothyroxine Sodium 75 MCG TAB PO SCH (10:18)
[2024-04-03] MEDS: Sacubitril 49 MG/Valsartan 51 MG TABLET PO SCH (10:18)
[2024-04-03] MEDS: Aspirin Chewable 81 MG TAB PO SCH (10:18)
[2024-04-03] MEDS: Sertraline 25 MG TAB PO SCH (10:18)
[2024-04-03] MEDS: Magnesium 2 GM/50 ML(in water) 2 GM in Premix 1 BAG IVPB SCH (10:18)
[2024-04-03] MEDS: Carvedilol 6.25 MG TAB PO SCH (10:19)
[2024-04-03] MEDS: Amiodarone 200 MG TAB PO SCH (10:19)
[2024-04-03] MEDS: Cholecalciferol 1,000 UNITS (25 MCG) TAB PO SCH (10:20)
[2024-04-03] MEDS: Pantoprazole 40 MG DR.TAB PO SCH (10:20)
[2024-04-03] MEDS: Empagliflozin 10 MG TAB PO SCH (10:20)
[2024-04-03] MEDS: Tamsulosin HCl 0.4 MG CAP PO SCH (10:20)
[2024-04-03] MEDS: hydrALAZINE 25 MG TAB PO SCH (10:20)
[2024-04-03] MEDS: Furosemide 40 MG (4 mL) VIAL IVP SCH (10:20)
[2024-04-03] MEDS: Spironolactone 25 MG TAB PO SCH (14:04)
[2024-04-03] MEDS: methylPREDNISolone Sod Succ 40 MG VIAL IVP SCH (20:43)
[2024-04-03] MEDS: Rosuvastatin 10 MG TAB PO SCH (20:43)
[2024-04-03] MEDS: Dutasteride 0.5 MG CAP PO SCH (20:43)
[2024-04-04 04:44] LABS: #Basophils Less than 0.03 10x3/uL (0.0-0.2); #Eosinophils Less than 0.03 10x3/uL (0.0-0.7); %Basophils 0.1 % (0.0-1.0); %Lymphocytes 4.6 % (21.0-51.0); %Monocytes 3.2 % (0.0-10.0); %Neutrophils 91.2 % (42.0-75.0); Hemoglobin 8.7 g/dL (14.0-18.0); Mean Corpuscular HGB CONC 32.2 g/dL (32.0-36.0); Mean Corpuscular Hemoglobin 26.5 pg (27.0-31.0); Mean Corpuscular Volume 82.3 fL (78.0-98.0); Platelet Count 197 10x3/uL (130-400); RBC Distribution Width 16.8 % (11.5-14.5); Red Blood Cell (RBC) Count 3.28 mill/uL (4.70-6.10)
[2024-04-04 05:03] LABS: Anion Gap 14 mmol/L (10-20); BUN (Urea Nitrogen) 29 mg/dL (8.4-25.7); Calc. Creatinine Clearance 53 mL/min (70-130); Calcium 8.9 mg/dL (7.8-10.44); Carbon Dioxide 28 mmol/L (23-31); Chloride 102 mmol/L (98-107); Estimated GFR 52; Glucose 173 mg/dL (83-110); Potassium 3.6 mmol/L (3.5-5.1); Sodium 140 mmol/L (136-145)
[2024-04-04] MEDS: Levothyroxine Sodium 75 MCG TAB PO SCH (05:32)
[2024-04-04] MEDS ORDERED: Spironolactone 25 MG TAB PO SCH (08:00)
[2024-04-04] MEDS: cloNIDine 0.2 MG TAB PO SCH (10:08)
[2024-04-04] MEDS: methylPREDNISolone Sod Succ 40 MG VIAL IVP SCH ×2 (13:26→22:03)
[2024-04-05 04:32] LABS: #Basophils Less than 0.03 10x3/uL (0.0-0.2); #Eosinophils Less than 0.03 10x3/uL (0.0-0.7); %Eosinophils 0.1 % (0.0-10.0); %Lymphocytes 5.2 % (21.0-51.0); %Neutrophils 90.7 % (42.0-75.0); Hematocrit 27.6 % (42.0-52.0); Hemoglobin 8.9 g/dL (14.0-18.0); Mean Corpuscular HGB CONC 32.2 g/dL (32.0-36.0); Mean Corpuscular Hemoglobin 26.8 pg (27.0-31.0); Mean Corpuscular Volume 83.1 fL (78.0-98.0); Mean Platelet Volume 10.4 fL (7.4-10.4); Platelet Count 192 10x3/uL (130-400); RBC Distribution Width 17.1 % (11.5-14.5); Red Blood Cell (RBC) Count 3.32 mill/uL (4.70-6.10)
[2024-04-05 04:45] LABS: Anion Gap 11 mmol/L (10-20); BUN (Urea Nitrogen) 41 mg/dL (8.4-25.7); Calc. Creatinine Clearance 52 mL/min (70-130); Calcium 8.7 mg/dL (7.8-10.44); Carbon Dioxide 32 mmol/L (23-31); Chloride 100 mmol/L (98-107); Estimated GFR 50; Glucose 180 mg/dL (83-110); Potassium 3.7 mmol/L (3.5-5.1); Sodium 139 mmol/L (136-145)
[2024-04-05 09:10] LABS: Free T4 (Free Thyroxine) 0.84 ng/dL (0.70-1.48)
[2024-04-05] MEDS: Ipratropium/Albuterol 3 ML NEB NEB SCH (11:34)
[2024-04-06] MEDS: Ipratropium/Albuterol 3 ML NEB NEB PRN (01:00)
[2024-04-06 04:45] LABS: #Basophils Less than 0.03 10x3/uL (0.0-0.2); #Eosinophils Less than 0.03 10x3/uL (0.0-0.7); %Lymphocytes 6.4 % (21.0-51.0); %Monocytes 4.8 % (0.0-10.0); %Neutrophils 87.8 % (42.0-75.0); Hematocrit 31.8 % (42.0-52.0); Hemoglobin 9.7 g/dL (14.0-18.0); Mean Corpuscular HGB CONC 30.5 g/dL (32.0-36.0); Mean Corpuscular Hemoglobin 26.4 pg (27.0-31.0); Mean Corpuscular Volume 86.6 fL (78.0-98.0); Mean Platelet Volume 10.5 fL (7.4-10.4); Platelet Count 233 10x3/uL (130-400); RBC Distribution Width 17.4 % (11.5-14.5); Red Blood Cell (RBC) Count 3.67 mill/uL (4.70-6.10)
[2024-04-06 05:21] LABS: Anion Gap 14 mmol/L (10-20); BUN (Urea Nitrogen) 54 mg/dL (8.4-25.7); Calc. Creatinine Clearance 48 mL/min (70-130); Calcium 8.9 mg/dL (7.8-10.44); Carbon Dioxide 31 mmol/L (23-31); Chloride 98 mmol/L (98-107); Estimated GFR 46; Glucose 177 mg/dL (83-110); Potassium 3.7 mmol/L (3.5-5.1); Sodium 139 mmol/L (136-145)
[2024-04-06] MEDS: Levothyroxine Sodium 100 MCG TAB PO SCH (06:08)
[2024-04-06] MEDS ORDERED: Furosemide 40 MG TAB PO SCH (07:30)
[2024-04-06] MEDS: Ipratropium/Albuterol 3 ML NEB EZPAP SCH (11:31)
[2024-04-06] MEDS ORDERED: Ipratropium/Albuterol 3 ML NEB NEB PRN (13:13)
[2024-04-07 04:49] LABS: #Basophils Less than 0.03 10x3/uL (0.0-0.2); %Basophils 0.2 % (0.0-1.0); %Eosinophils 1.6 % (0.0-10.0); %Lymphocytes 16.4 % (21.0-51.0); %Neutrophils 71.9 % (42.0-75.0); Hematocrit 30.8 % (42.0-52.0); Hemoglobin 9.5 g/dL (14.0-18.0); Mean Corpuscular HGB CONC 30.8 g/dL (32.0-36.0); Mean Corpuscular Hemoglobin 26.6 pg (27.0-31.0); Mean Corpuscular Volume 86.3 fL (78.0-98.0); Mean Platelet Volume 10.2 fL (7.4-10.4); Platelet Count 193 10x3/uL (130-400); RBC Distribution Width 17.4 % (11.5-14.5); Red Blood Cell (RBC) Count 3.57 mill/uL (4.70-6.10)
[2024-04-07 05:19] LABS: Anion Gap 13 mmol/L (10-20); BUN (Urea Nitrogen) 60 mg/dL (8.4-25.7); Calc. Creatinine Clearance 44 mL/min (70-130); Calcium 8.8 mg/dL (7.8-10.44); Carbon Dioxide 30 mmol/L (23-31); Chloride 99 mmol/L (98-107); Estimated GFR 42; Glucose 115 mg/dL (83-110); Potassium 3.7 mmol/L (3.5-5.1); Sodium 138 mmol/L (136-145)
[2024-04-07] MEDS: predniSONE 20 MG TAB PO SCH (10:36)
[2024-04-07] MEDS: Ipratropium/Albuterol 3 ML NEB EZPAP SCH (14:09)
[2024-04-07] MEDS: Acetaminophen 325 MG TAB PO PRN (21:52)
[2024-04-08 04:46] LABS: #Basophils Less than 0.03 10x3/uL (0.0-0.2); #Eosinophils Less than 0.03 10x3/uL (0.0-0.7); %Basophils 0.1 % (0.0-1.0); %Eosinophils 0.1 % (0.0-10.0); %Lymphocytes 10.1 % (21.0-51.0); %Monocytes 8.9 % (0.0-10.0); %Neutrophils 79.9 % (42.0-75.0); Hematocrit 29.7 % (42.0-52.0); Hemoglobin 9.2 g/dL (14.0-18.0); Mean Corpuscular Hemoglobin 26.3 pg (27.0-31.0); Mean Corpuscular Volume 84.9 fL (78.0-98.0); Mean Platelet Volume 10.1 fL (7.4-10.4); Platelet Count 184 10x3/uL (130-400); RBC Distribution Width 17.6 % (11.5-14.5)
[2024-04-08 05:13] LABS: Anion Gap 9 mmol/L (10-20); BUN (Urea Nitrogen) 50 mg/dL (8.4-25.7); Calc. Creatinine Clearance 46 mL/min (70-130); Calcium 8.9 mg/dL (7.8-10.44); Carbon Dioxide 33 mmol/L (23-31); Chloride 100 mmol/L (98-107); Estimated GFR 45; Glucose 133 mg/dL (83-110); Sodium 138 mmol/L (136-145)
[2024-04-08] MEDS ORDERED: Magnesium 2 GM/50 ML(in water) 2 GM in Premix 1 BAG IVPB SCH (08:00)
[2024-04-08] MEDS: hydrALAZINE 25 MG TAB PO SCH (09:30)
[2024-04-08 13:01] VITALS: TEMP 98.3
[2024-04-08 13:42] VITALS: BP 126/93
== END 2024-04-08 15:00 | disposition home or self-care (01) | DRG 291 ==
LOC: ERS 11:24 → 2NO 15:58
PROVIDERS: ADMIT Family Medicine; ATTEND Family Medicine
PROC: 30233N1 Transfusion of Nonautologous Red Blood Cells into Peripheral Vein, Percutaneous Approach (ICD-10-PCS; principal; 2024-04-03)
PROC: 5A09357 Assistance with Respiratory Ventilation, Less than 24 Consecutive Hours, Continuous Positive Airway Pressure (ICD-10-PCS; 2024-04-06)
DX: I13.0 Hypertensive heart and chronic kidney disease with heart failure and stage 1 through stage 4 chronic kidney disease, or unspecified chronic kidney disease (principal); I50.43 Acute on chronic combined systolic (congestive) and diastolic (congestive) heart failure; J96.21 Acute and chronic respiratory failure with hypoxia; J44.1 Chronic obstructive pulmonary disease with (acute) exacerbation; I47.19 Other supraventricular tachycardia; N18.30 Chronic kidney disease, stage 3 unspecified; D63.1 Anemia in chronic kidney disease; J43.9 Emphysema, unspecified; E78.5 Hyperlipidemia, unspecified; E03.9 Hypothyroidism, unspecified; I25.10 Atherosclerotic heart disease of native coronary artery without angina pectoris; E11.22 Type 2 diabetes mellitus with diabetic chronic kidney disease; G47.33 Obstructive sleep apnea (adult) (pediatric); I48.91 Unspecified atrial fibrillation; Z88.8 Allergy status to other drugs, medicaments and biological substances; I42.9 Cardiomyopathy, unspecified; Z83.3 Family history of diabetes mellitus; Z82.49 Family history of ischemic heart disease and other diseases of the circulatory system; Z79.899 Other long term (current) drug therapy; Z87.891 Personal history of nicotine dependence; Z86.73 Personal history of transient ischemic attack (TIA), and cerebral infarction without residual deficits; Z79.85 Long-term (current) use of injectable non-insulin antidiabetic drugs; Z79.82 Long term (current) use of aspirin; Z95.810 Presence of automatic (implantable) cardiac defibrillator; Z99.81 Dependence on supplemental oxygen
CPT/HCPCS: 36415; 36416; 36430; 71045; 80048; 80053; 83735; 83880; 84439; 84443; 84481; 84484; 85025; 86850; 86900; 86901; 93005; 93306; 93798; 94640; 94760; 96365; 96366; 96375; J1815; J1940; J2919; J3475; J7512; J7611; J7620; J7644; P9016

== ENCOUNTER 2024-04-18 06:39 | Day surgery (SDC) | payer MEDICARE ==
[2024-04-14 10:47] VITALS: BMI 28.2
[2024-04-18] MEDS ORDERED: Midazolam HCl 2 mg/2 ml Vial ONE (08:54)
[2024-04-18] MEDS ORDERED: PROPOFOL 20 ML ONE (09:02)
== END 2024-04-18 11:14 | disposition home or self-care (01) ==
LOC: SDC 06:39
PROVIDERS: ATTEND Internal Medicine Gastroenterology
PROC: 0DBK8ZZ Excision of Ascending Colon, Via Natural or Artificial Opening Endoscopic (ICD-10-PCS; principal; 2024-04-18)
PROC: 0DBL8ZZ Excision of Transverse Colon, Via Natural or Artificial Opening Endoscopic (ICD-10-PCS; 2024-04-18)
PROC: 0DBN8ZZ Excision of Sigmoid Colon, Via Natural or Artificial Opening Endoscopic (ICD-10-PCS; 2024-04-18)
DX: D12.2 Benign neoplasm of ascending colon (principal); D12.5 Benign neoplasm of sigmoid colon; D12.3 Benign neoplasm of transverse colon; D50.9 Iron deficiency anemia, unspecified; K57.30 Diverticulosis of large intestine without perforation or abscess without bleeding; R94.5 Abnormal results of liver function studies; I25.10 Atherosclerotic heart disease of native coronary artery without angina pectoris; I48.91 Unspecified atrial fibrillation; I42.9 Cardiomyopathy, unspecified; I25.2 Old myocardial infarction; I11.0 Hypertensive heart disease with heart failure; I50.9 Heart failure, unspecified; E11.9 Type 2 diabetes mellitus without complications; E78.5 Hyperlipidemia, unspecified; E03.9 Hypothyroidism, unspecified; J44.9 Chronic obstructive pulmonary disease, unspecified; F17.200 Nicotine dependence, unspecified, uncomplicated; Z86.0101 Personal history of adenomatous and serrated colon polyps; Z95.0 Presence of cardiac pacemaker; Z96.652 Presence of left artificial knee joint; Z96.642 Presence of left artificial hip joint; Z98.49 Cataract extraction status, unspecified eye; Z90.49 Acquired absence of other specified parts of digestive tract; Z88.5 Allergy status to narcotic agent; Z88.8 Allergy status to other drugs, medicaments and biological substances; Z79.82 Long term (current) use of aspirin; Z79.02 Long term (current) use of antithrombotics/antiplatelets; Z79.84 Long term (current) use of oral hypoglycemic drugs; Z79.899 Other long term (current) drug therapy
CPT/HCPCS: 45385; J2250; J2704; 88305